=== PATIENT | female | born 1960 ===

== ENCOUNTER 2020-06-27 10:23 | Outpatient (REF) | payer MEDICAID, SELFPAY ==
--- NOTE | ~2020-06-27 | MM_ITS ---
EXAMINATION: MM SCREENING DIGITAL MAMMOGRAPHY, BILATERAL CLINICAL INFORMATION: Screening. Asymptomatic. The lifetime risk of breast cancer based on the Tyrer-Cuzick Model is 4%. COMPARISON: Mammography: 05/25/2018, 04/28/2017 (baseline). TECHNIQUE: Digital mammography is performed in craniocaudal and mediolateral oblique views along with computer-aided detection (CAD). Technically challenging exam, 2 technologists to perform. Exam tailored to patient capabilities. Additional right CC view is provided. FINDINGS: There are scattered areas of fibroglandular density (ACR BI-RADS breast composition Category b). There are no significant masses, abnormal calcifications, or other abnormalities. No developing density. No significant changes. MM/MM screening mammo BI IMPRESSION: No mammographic evidence of malignancy. ASSESSMENT: BI-RADS 1: Negative RECOMMENDATION: Routine annual mammography screening. This patient's information was entered into a reminder system with a target due date for their next mammogram.
== END 2020-06-27 10:24 | disposition home or self-care (01) ==
LOC: HO.MAMMO 10:23
PROVIDERS: PCP Hospitalist; Visit Provider Hospitalist
DX: Z12.31 Encounter for screening mammogram for malignant neoplasm of breast (principal)
CPT/HCPCS: 77063; 77067

== ENCOUNTER → 2021-01-06 09:10 | Outpatient (BNVA) | payer MEDICAID, SELFPAY | PROVIDERS: PCP Hospitalist ==

== ENCOUNTER → 2022-05-20 13:38 | Outpatient (BNVA) | payer MEDICAID, SELFPAY | PROVIDERS: PCP Hospitalist; Visit Provider Nurse Practitioner Family | DX: N32.81 Overactive bladder (principal) | CPT/HCPCS: 51798; 99212 ==

== ENCOUNTER 2022-06-24 09:47 | Outpatient (REF) | payer MEDICAID, SELFPAY ==
--- NOTE | ~2022-06-24 | US_ITS ---
EXAMINATION: US RETROPERITONEAL COMPLETE (RENAL) CLINICAL INFORMATION: Overactive bladder. COMPARISON: None available. TECHNIQUE: Real-time imaging of the kidneys and bladder. FINDINGS: RIGHT KIDNEY: 10.1 x 5.4 x 4.6 cm (SAG x AP x TRV). The kidney is normal in size, contour, and echogenicity. There is mild cortical thinning. No focal parenchymal lesions or hydronephrosis. There is an echogenic nonobstructive stone midpole measuring 0.3 x 0.3 x 0.2 cm. No additional echogenic stones seen. No caliectasis is noted. LEFT KIDNEY: 10.5 x 5.0 x 5.2 cm (SAG x AP x TRV). The kidney is normal in size, contour, and echogenicity. There is mild cortical thinning No calculi or focal parenchymal lesions. No hydronephrosis. BLADDER: Well distended and normal. Bilateral ureteral jets are demonstrated. Prevoid bladder volume is 253 mL. Postvoid bladder volume is 62.1 mL. US/US retroperitoneal comp IMPRESSION: 1. Small nonobstructive echogenic stone midpole right kidney. 2. There is no caliectasis or hydronephrosis. 3. There is mild bilateral cortical thinning. 4. Normal bilateral ureteral jets seen. Small postvoid residual bladder volume.
== END 2022-06-24 09:48 | disposition home or self-care (01) ==
LOC: HO.US 09:47
PROVIDERS: PCP Hospitalist; Visit Provider Nurse Practitioner Family
DX: N32.81 Overactive bladder (principal)
CPT/HCPCS: 76770

== ENCOUNTER → 2022-07-01 10:37 | Outpatient (BNVA) | payer MEDICAID, SELFPAY | PROVIDERS: PCP Hospitalist; Visit Provider Nurse Practitioner Family | DX: N32.81 Overactive bladder (principal); R81 Glycosuria; Z79.899 Other long term (current) drug therapy | CPT/HCPCS: 51798; 99212 ==

== ENCOUNTER 2022-12-30 11:33 | Outpatient (AMB) | payer MEDICAID, SELFPAY ==
--- NOTE | 2022-12-30 11:34 | MHC.OFFVIS ---
Intake Intake Visit Reasons: 6m/PVR Intake Note: Patient is present for follow up PVR/OAB Urology Medications: Gemtesa Blood Thinner: Aspirin PVR: 83ml's Physician Practice Manager Required: No Accompanied by: Unknown Allergies Erythromycin Allergy (Unknown, Uncoded 12/30/22 13:32) Unknown Medication List - Last Reconciled 12/30/22 by AGNES HuertasP- acetaminophen 650 mg PO Q4H PRN aspirin (Adult Low Dose Aspirin) 81 mg PO DAILY kkivgyn-rjhzuqgicfngq-renesomy 250-250-65 mg (Excedrin Migraine) 1 tab PO Q4-6H PRN atorvastatin (Lipitor) 20 mg PO DAILY benztropine 1 mg PO BID bisacodyl 5 mg PO BEDTIME lvnocrtvvx-lmqgizkonfsho-wyqx 50-325-40 mg 1 tab PO Q4H PRN calcium carbonate (Antacid (calcium carbonate)) 430 mg PO QID ergocalciferol (vitamin D2) (Vitamin D2) 1,250 mcg PO DAILY famotidine 40 mg PO BEDTIME gabapentin 300 mg PO DAILY hydroxyzine HCl 25 mg PO TID PRN lidocaine HCl 4% (Aspercreme (lidocaine HCl)) 1 appl topical TID PRN loperamide 2 mg PO Q6H PRN loratadine 10 mg PO DAILY risperidone (Risperdal) 0.5 mg PO BID vibegron (Gemtesa) 75 mg PO DAILY 30 days HPI HPI Comments History of Present Illness Details Anabela is a pleasant 62-year-old female patient of Dr. Ko and is accompanied by a staff member from the facility she resides at a [facility]. She has a past medical history of legally blind, nephrolithiasis, overactive bladder, hyperlipidemia, bipolar disorder, depression, tension headaches, paralytic mitosis of bilateral eyelids, strabismus, GERD, dysarthria, anarthria, chronic pain, and bilateral optic atrophy. She presents to the office today for follow-up of her overactive bladder. Discussion with the patient today she reports to be doing and feeling well. When asked patient reports compliance with Myrbetriq 50 mg daily. She reports that although she does not know the name of all her medications she does believe [facility] staff to be administering her Myrbetriq daily. She denies any bothersome urinary issues or concerns at this time. She reports to be happy with current voiding parameters on 50 mg of Myrbetriq daily. Previous workup has included a retroperitoneal ultrasound noting right kidney with no lesions or hydronephrosis. There is an echogenic nonobstructive stone in the mid pole measuring 2 mm. Left kidney with no stones, lesions, and or hydronephrosis. The bladder is well distended and normal. Bilateral ureteral jets are demonstrated. Pre void bladder volume is 253 mL. Postvoid bladder volume is 62.1 mL. In office urinalysis results reviewed with the patient today. PVR 83 mL. In review of the patient's appears she previously failed off of oxybutynin. Patient reports she is wheelchair-bound and requires assistance for toileting however reports staff at facility to be helping her. When asked she denies any UTI like symptoms. She denies urinary urgency, hematuria, dysuria, foul smelling urine, changes to urinary stream, flank pain, fever, and or chills. [facility] Medical History Overactive bladder Dysarthria Exotropia GERD (gastroesophageal reflux disease) Hyperlipidemia Legal blindness Major depressive disorder Bipolar 1 disorder Hemiplegia Social History Patient Tobacco Use Status: Never used Tobacco Review of Systems Const Reports as per HPI Eyes Reports as per HPI ENT Reports no additional complaints Card Reports as per HPI Resp Reports no additional complaints GI Reports as per HPI Reports as per HPI Musc Reports as per HPI Neuro Reports as per HPI Psych Reports as per HPI Endo Reports no additional complaints Billy/Lymph Reports no additional complaints Aller/Immun Reports no additional complaints Physical Exam Const General: cooperative, comfortable, no acute distress and well developed Orientation/consciousness: oriented to person Limitations: wheelchair HEENT Head: Yes normal to inspection Neck Neck: Yes normal visual inspection Chest Chest palpation & inspection: normal inspection of the chest Resp Effort & Inspection: normal respiratory effort Cardio Rate: regular rate GI Inspection: Yes normal to inspection General: Yes no CVA tenderness Back/Spine/Pelvis Back: no CVA tenderness Neuro General: oriented to person Extrem General: Yes normal to inspection Psych Appearance: well kempt Attitude: cooperative Insight: Fair insight present (Psych) Judgement: Fair judgement present (Psych) Office Procedures Post Void Residual Post Residual Void Post Void Residual (PVR): 83 [id number]-Fufr Void Residual by ultrasound Results AMB Urinalysis, Automated UA Leukoctes 0 Javier/uL Last Edit by Jeffrey Armenta on 12/30/22 12:10 UA Nitrite Negative Last Edit by InsideAxis™vanessa Armenta on 12/30/22 12:10 UA Urobilinogen 0.2 mg/dL Last Edit by Technisysdanielle Armenta on 12/30/22 12:10 UA Protein 0 mg/dL Last Edit by Technisysdanielle [email or web address] on 12/30/22 12:10 UA pH 6.0 Last Edit by Convertroshahrzad on 12/30/22 12:10 UA Blood 0 Joe/uL Last Edit by Convertroshahrzad on 12/30/22 12:10 UA Specific [place] 1.020 Last Edit by Technisysdanielle [email or web address] on 12/30/22 12:10 UA Ketone Negative Last Edit by Convertroshahrzad on 12/30/22 12:10 UA Bilirubin 0 mg/dL Last Edit by Convertroshahrzad on 12/30/22 12:10 UA Glucose 0 mg/dL Last Edit by [email or web address] on 12/30/22 12:10 Results Reviewed Results Reviewed: Laboratory Last Values Urine pH (Auto) 6.0 12/30/22 12:01 Specific [place] (Auto) 1.020 12/30/22 12:01 Urine Protein (Auto) 0 mg/dL 12/30/22 12:01 Glucose (UA)(Auto) 0 mg/dL 12/30/22 12:01 Urine Ketones (Auto) Negative 12/30/22 12:01 Urine Blood (Auto) 0 Joe/uL 12/30/22 12:01 Urine Nitrite (Auto) Negative 12/30/22 12:01 Urine Bilirubin (Auto) 0 mg/dL 12/30/22 12:01 Urine Urobilinogen (Auto) 0.2 mg/dL 12/30/22 12:01 Leukocyte Esterase (Auto) 0 Javier/uL 12/30/22 12:01 Assessment & Plan Assessment & Plan (1) Overactive bladder: Code(s): N32.81 - Overactive bladder (2) Nephrolithiasis: Code(s): N20.0 - Calculus of kidney Plan In office urinalysis results reviewed with the patient today and [facility] worker today. PVR 83 mL. Continue Myrbetriq 50 mg daily as discussed and prescribed Discussed, educated, encouraged on the importance of drinking plenty of fluid daily. Continue with scheduled/timed voiding to decreased episodes of urinary incontinence if not near a bathroom. Patient reports be happy with current voiding parameters. Patient denies any bothersome urinary issues or concerns at this time. Follow-up in 6 months with PVR; or sooner with any issues, concerns, and or questions. Orders: Orders AMB Post Void Residual by ultrasound Today N32.81 - Overactive bladder AMB Urinalysis Automated Today Z13.9 - Encounter for screening, unspecified Patient Instructions: The patient had an opportunity to ask questions regarding the treatment plan. All questions were answered. Physical exam, labs, and imaging were discussed and reviewed in detail. As well as risks, benefits, and discussion of treatment choices. No major barriers to understanding were identified. The patient expressed understanding and agreement with the above treatment plan. The patient was made aware they should contact our office by phone for worsening of their current condition, the appearance of new symptoms, or with any questions or concerns. Compliance is encouraged with any medications and follow up testing that is ordered. It is a privilege to be allowed the opportunity to participate in? your urological care.? Again, if you have any questions or concerns If you have any questions or concerns please do not hesitate to contact me. The office is [phone]. This note is constructed using voice recognition software. While every effort has been made to ensure accuracy content specialist errors may have been included. Yours sincerely, JAMES Huertas Coding Level of Care Code Est Pt Level 3 (05233) Diagnoses Overactive bladder N32.81 Nephrolithiasis N20.0 CPT Codes Post Residual Void - PVR CPT Code: 16647-Hjci Void Residual by ultrasound ([id number])
== END 2022-12-30 12:08 | disposition home or self-care (01) ==
PROVIDERS: Visit Provider Nurse Practitioner Family
DX: N32.81 Overactive bladder (principal); N20.0 Calculus of kidney; Z13.9 Encounter for screening, unspecified
CPT/HCPCS: 99213

== ENCOUNTER → 2022-12-30 11:33 | Outpatient (BNVA) | payer MEDICAID, SELFPAY | PROVIDERS: Visit Provider Nurse Practitioner Family | DX: N32.81 Overactive bladder (principal); N20.0 Calculus of kidney; Z79.899 Other long term (current) drug therapy | CPT/HCPCS: 51798; 81003; 99212 ==

== ENCOUNTER 2023-06-30 10:38 | Outpatient (AMB) | payer MEDICAID, SELFPAY ==
--- NOTE | 2023-06-30 10:39 | MHC.OFFVIS ---
Intake Visit Reasons: 6m/US/PVR Intake Note: Patient is present for follow up PVR/OAB Urology Medications: Myrbetriq Blood Thinner: Aspirin PVR: 0ml's Ux Architect Required: No Accompanied by: PARK SUPERINTENDENT Allergies Erythromycin Allergy (Unknown, Uncoded 06/30/23 20:39) Unknown Medication List - Last Reconciled 06/30/23 by BRENT Huertas-KAROLYN acetaminophen 650 mg PO Q4H PRN aspirin (Adult Low Dose Aspirin) 81 mg PO DAILY oqkwksq-ptkjijccbdsfu-uvpzvepd 250-250-65 mg (Excedrin Migraine) 1 tab PO Q4-6H PRN atorvastatin (Lipitor) 20 mg PO DAILY benztropine 1 mg PO BID bisacodyl 5 mg PO BEDTIME matmaapyea-hstqzvkqyfuhv-pcyb 50-325-40 mg 1 tab PO Q4H PRN calcium carbonate (Antacid (calcium carbonate)) 430 mg PO QID ergocalciferol (vitamin D2) (Vitamin D2) 1,250 mcg PO DAILY famotidine 40 mg PO BEDTIME gabapentin 300 mg PO DAILY hydroxyzine HCl 25 mg PO TID PRN lidocaine HCl 4% (Aspercreme (lidocaine HCl)) 1 appl topical TID PRN loperamide 2 mg PO Q6H PRN loratadine 10 mg PO DAILY mirabegron ER (Myrbetriq) 50 mg PO DAILY mirtazapine 7.5 mg PO DAILY risperidone (Risperdal) 0.5 mg PO BID HPI Comments Details: Anabela is a pleasant 63-year-old female patient of Dr. Ko and is accompanied by a staff member Abbie from the facility she resides at a [facility]. She has a past medical history of legally blind, nephrolithiasis, overactive bladder, hyperlipidemia, bipolar disorder, depression, tension headaches, paralytic mitosis of bilateral eyelids, strabismus, GERD, dysarthria, anarthria, chronic pain, and bilateral optic atrophy. She presents to the office today for follow-up of her overactive bladder. In discussion with the patient today she reports to be doing and feeling well. When asked patient reports compliance with Myrbetriq 50 mg daily. She denies any bothersome urinary issues or concerns at this time. She reports to be happy with current voiding parameters on 50 mg of Myrbetriq daily. Previous workup has included a retroperitoneal ultrasound noting right kidney with no lesions or hydronephrosis. There is an echogenic nonobstructive stone in the mid pole measuring 2 mm. Left kidney with no stones, lesions, and or hydronephrosis. The bladder is well distended and normal. Bilateral ureteral jets are demonstrated. Pre void bladder volume is 253 mL. Postvoid bladder volume is 62.1 mL. Unable to obtain urine for urinalysis however PVR 0 mLs. Patient reports she is wheelchair-bound and requires assistance for toileting however reports staff at facility to be helping her. When asked she denies any UTI like symptoms. She does report to have infrequent episodes of incontinence at times however relates this to not being able to make it to the bathroom in time given decreased mobility. She denies urinary urgency, hematuria, dysuria, foul smelling urine, changes to urinary stream, flank pain, fever, and or chills. [facility] Medical History Overactive bladder Dysarthria Exotropia GERD (gastroesophageal reflux disease) Hyperlipidemia Legal blindness Major depressive disorder Bipolar 1 disorder Hemiplegia Social History Patient Tobacco Use Status: Never used Tobacco Review of Systems Const Reports as per HPI Eyes Reports as per HPI ENT Reports no additional complaints Card Reports as per HPI Resp Reports no additional complaints GI Reports as per HPI Reports as per HPI Musc Reports as per HPI Neuro Reports as per HPI Psych Reports as per HPI Endo Reports no additional complaints Billy/Lymph Reports no additional complaints Aller/Immun Reports no additional complaints Physical Exam Const General: cooperative, comfortable, no acute distress and well developed Orientation/consciousness: oriented to person Limitations: wheelchair HEENT Head: Yes normal to inspection Neck Neck: Yes normal visual inspection Chest Chest palpation & inspection: normal inspection of the chest Resp Effort & Inspection: normal respiratory effort Cardio Rate: regular rate GI Inspection: Yes normal to inspection General: Yes no CVA tenderness Back/Spine/Pelvis Back: no CVA tenderness Neuro General: oriented to person Extrem General: Yes normal to inspection Psych Appearance: well kempt Attitude: cooperative Insight: Fair insight present (Psych) Judgement: Fair judgement present (Psych) Office Procedures Post Void Residual Post Residual Void Post Void Residual (PVR): 0 69019-Vkyr Void Residual by ultrasound Assessment & Plan Assessment & Plan (1) Overactive bladder: Code(s): N32.81 - Overactive bladder Category: Medical (2) Nephrolithiasis: Code(s): N20.0 - Calculus of kidney Category: Medical Plan Unable to obtain urine for urinalysis however PVR 0 mL. Continue Myrbetriq 50 mg daily as discussed and prescribed Discussed, educated, encouraged on the importance of drinking plenty of fluid daily. Continue with scheduled/timed voiding to decreased episodes of urinary incontinence if not near a bathroom. Patient reports be happy with current voiding parameters. Patient denies any bothersome urinary issues or concerns at this time. Follow-up in 6 months with PVR; or sooner with any issues, concerns, and or questions. Orders: Orders AMB Urinalysis Automated Today Z13.9 - Encounter for screening, unspecified AMB Post Void Residual by ultrasound Today N32.81 - Overactive bladder Patient Instructions: The patient had an opportunity to ask questions regarding the treatment plan. All questions were answered. Physical exam, labs, and imaging were discussed and reviewed in detail. As well as risks, benefits, and discussion of treatment choices. No major barriers to understanding were identified. The patient expressed understanding and agreement with the above treatment plan. The patient was made aware they should contact our office by phone for worsening of their current condition, the appearance of new symptoms, or with any questions or concerns. Compliance is encouraged with any medications and follow up testing that is ordered. It is a privilege to be allowed the opportunity to participate in? your urological care.? Again, if you have any questions or concerns If you have any questions or concerns please do not hesitate to contact me. The office is [phone]. This note is constructed using voice recognition software. While every effort has been made to ensure accuracy care transition manager errors may have been included. Yours sincerely, JAMES Huertas Coding Level of Care Code Est Pt Level 3 (78069) Diagnoses Overactive bladder N32.81 Nephrolithiasis N20.0 CPT Codes Post Residual Void - PVR CPT Code: 62202-Whoq Void Residual by ultrasound ([id number])
== END 2023-06-30 11:16 | disposition home or self-care (01) ==
PROVIDERS: PCP Hospitalist; Visit Provider Nurse Practitioner Family
DX: N32.81 Overactive bladder (principal); N20.0 Calculus of kidney
CPT/HCPCS: 99213

== ENCOUNTER → 2023-06-30 10:38 | Outpatient (BNVA) | payer MEDICAID, SELFPAY | PROVIDERS: PCP Hospitalist; Visit Provider Nurse Practitioner Family | DX: N32.81 Overactive bladder (principal); Z87.442 Personal history of urinary calculi; Z79.899 Other long term (current) drug therapy | CPT/HCPCS: 51798; 99212 ==

== ENCOUNTER 2024-01-03 10:49 | Outpatient (AMB) | payer MEDICAID, SELFPAY ==
--- NOTE | 2024-01-03 10:52 | A.OFFVIS_ITS ---
Intake Visit Reasons: 6m/PVR Intake Note: Patient is present for follow up PVR/OAB Urology Medications: Myrbetriq Blood Thinner: Aspirin PVR: 0ml's Gluer Required: No Accompanied by: TREE CHIPPER Allergies Erythromycin Allergy (Unknown, Uncoded 01/03/24 11:23) Unknown Medication List - Last Reconciled 01/03/24 by JAMES Huertas acetaminophen 650 mg PO Q4H PRN aspirin (Adult Low Dose Aspirin) 81 mg PO DAILY ybucpdv-crmtphcmrtveg-kxthljhb 250-250-65 mg (Excedrin Migraine) 1 tab PO Q4-6H PRN atorvastatin (Lipitor) 20 mg PO DAILY benztropine 1 mg PO BID bisacodyl 5 mg PO BEDTIME urepumouur-pjbdknurfnhwr-wgvp 50-325-40 mg 1 tab PO Q4H PRN calcium carbonate (Antacid (calcium carbonate)) 430 mg PO QID ergocalciferol (vitamin D2) (Vitamin D2) 1,250 mcg PO DAILY famotidine 40 mg PO BEDTIME gabapentin 300 mg PO DAILY hydroxyzine HCl 25 mg PO TID PRN lidocaine HCl 4% (Aspercreme (lidocaine HCl)) 1 appl topical TID PRN loperamide 2 mg PO Q6H PRN loratadine 10 mg PO DAILY mirabegron ER (Myrbetriq) 50 mg PO DAILY mirtazapine 7.5 mg PO DAILY risperidone (Risperdal) 0.5 mg PO BID HPI Comments Details: Anabela is a pleasant 63-year-old female patient of Dr. Ko and is accompanied by a staff member from the facility she resides at a [facility]. She has a past medical history of legally blind, nephrolithiasis, overactive bladder, hyperlipidemia, bipolar disorder, depression, tension headaches, paralytic mitosis of bilateral eyelids, strabismus, GERD, dysarthria, anarthria, chronic pain, and bilateral optic atrophy. She presents to the office today for follow-up of her overactive bladder. In discussion with the patient today she reports to be doing and feeling well. When asked patient reports compliance with Myrbetriq 50 mg daily. She denies any bothersome urinary issues or concerns at this time. She reports to be happy with current voiding parameters on 50 mg of Myrbetriq daily. Previous workup has included a retroperitoneal ultrasound 06/21 noting right kidney with no lesions or hydronephrosis. There is an echogenic nonobstructive stone in the mid pole measuring 2 mm. Left kidney with no stones, lesions, and or hydronephrosis. The bladder is well distended and normal. Bilateral ureteral jets are demonstrated. Pre void bladder volume is 253 mL. Postvoid bladder volume is 62.1 mL. Unable to obtain urine for urinalysis however PVR 0 mLs. Patient reports she is wheelchair-bound and requires assistance for toileting however reports staff at facility to be helping her. When asked she denies any UTI like symptoms. She does report to have infrequent episodes of incontinence at times however relates this to not being able to make it to the bathroom in time given decreased mobility. She denies urinary urgency, hematuria, dysuria, foul smelling urine, changes to urinary stream, flank pain, fever, and or chills. [facility] Medical History Overactive bladder Dysarthria Exotropia GERD (gastroesophageal reflux disease) Hyperlipidemia Legal blindness Major depressive disorder Bipolar 1 disorder Hemiplegia Social History Patient Tobacco Use Status: Never used Tobacco Review of Systems Const Reports as per HPI Eyes Reports as per HPI ENT Reports no additional complaints Card Reports as per HPI Resp Reports no additional complaints GI Reports as per HPI Reports as per HPI Musc Reports as per HPI Neuro Reports as per HPI Psych Reports as per HPI Endo Reports no additional complaints Billy/Lymph Reports no additional complaints Aller/Immun Reports no additional complaints Physical Exam Const General: cooperative, comfortable, no acute distress and well developed Orientation/consciousness: oriented to person Limitations: wheelchair HEENT Head: Yes normal to inspection Neck Neck: Yes normal visual inspection Chest Chest palpation & inspection: normal inspection of the chest Resp Effort & Inspection: normal respiratory effort Cardio Rate: regular rate GI Inspection: Yes normal to inspection General: Yes no CVA tenderness Back/Spine/Pelvis Back: no CVA tenderness Neuro General: oriented to person Extrem General: Yes normal to inspection Psych Appearance: well kempt Attitude: cooperative Insight: Fair insight present (Psych) Judgement: Fair judgement present (Psych) Assessment & Plan Assessment & Plan (1) Overactive bladder: Code(s): N32.81 - Overactive bladder Category: Medical (2) Nephrolithiasis: Code(s): N20.0 - Calculus of kidney Category: Medical Plan Unable to obtain urine for urinalysis however PVR 0 mL. Continue Myrbetriq 50 mg daily as discussed and prescribed Discussed, educated, encouraged on the importance of drinking plenty of fluid daily. Continue with scheduled/timed voiding to decreased episodes of urinary incontinence if not near a bathroom. Patient reports be happy with current voiding parameters. Patient denies any bothersome urinary issues or concerns at this time. Follow-up in 1 year with PVR; or sooner with any issues, concerns, and or questions. Patient Instructions: The patient had an opportunity to ask questions regarding the treatment plan. All questions were answered. Physical exam, labs, and imaging were discussed and reviewed in detail. As well as risks, benefits, and discussion of treatment choices. No major barriers to understanding were identified. The patient expressed understanding and agreement with the above treatment plan. The patient was made aware they should contact our office by phone for worsening of their current condition, the appearance of new symptoms, or with any questions or concerns. Compliance is encouraged with any medications and follow up testing that is ordered. It is a privilege to be allowed the opportunity to participate in? your urological care.? Again, if you have any questions or concerns If you have any questions or concerns please do not hesitate to contact me. The office is [phone]. This note is constructed using voice recognition software. While every effort has been made to ensure accuracy childcare teacher errors may have been included. Yours sincerely, JAMES Huertas Coding Level of Care Code Est Pt Level 3 (91379) Complex EM visit Add On G2211 Diagnoses Overactive bladder N32.81 Nephrolithiasis N20.0
== END 2024-01-03 11:16 | disposition home or self-care (01) ==
LOC: HO.HUSH 10:50
PROVIDERS: PCP Hospitalist; Visit Provider Nurse Practitioner Family
DX: N32.81 Overactive bladder (principal); N20.0 Calculus of kidney
CPT/HCPCS: 99213; G2211

== ENCOUNTER → 2024-01-03 10:49 | Outpatient (BNVA) | payer MEDICAID, SELFPAY | PROVIDERS: PCP Hospitalist; Visit Provider Nurse Practitioner Family | DX: N32.81 Overactive bladder (principal); N20.0 Calculus of kidney | CPT/HCPCS: 99212 ==

== ENCOUNTER 2024-01-05 09:21 | Outpatient (AMB) | payer MEDICAID, SELFPAY ==
--- NOTE | 2024-01-05 09:25 | MHC.OFFVIS ---
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 She is doing well with no concerns. Admits to having decreased appetite. Activity limited to a wheelchair access. Last mammogram; 2020. Colonoscopy records unavailable. Medication list not supplied today. Denies any family history of breast, ovarian or colon cancer. [facility] Medical History (Updated 01/05/24 @ 09:40 by Anabela Weaver CNM) Presbyopia Overactive bladder Dysarthria Exotropia GERD (gastroesophageal reflux disease) Hyperlipidemia Legal blindness Major depressive disorder Bipolar 1 disorder Hemiplegia Family History (Updated 01/05/24 @ 09:33 by Deborah Hadley MA) Father Colon cancer Social History Patient Tobacco Use Status: Never used Tobacco Female Reproductive History Menstrual Total pregnancies: 4 Full term: 4 Number of Living Children: 3 (2nd child put up for adoption) Date of Mammogram: 06/27/20 (bi-rad 1) Review of Systems Const All systems reviewed & are unremarkable except as noted in HPI and below Reports as per HPI Eyes Reports no additional complaints ENT Reports no additional complaints Card Reports no additional complaints Resp Reports no additional complaints GI Reports as per HPI and Reports no additional complaints Reports as per HPI Musc Reports no additional complaints Skin/Breast Reports as per HPI Neuro Reports no additional complaints Psych Reports no additional complaints Endo Reports no additional complaints Billy/Lymph Reports no additional complaints Aller/Immun Reports no additional complaints Physical Exam Vital Signs: Last Vital Signs BP 104/60 01/05/24 09:29 Const General: cooperative, healthy appearing, no acute distress, well developed and alert Orientation/consciousness: patient oriented x3 HEENT Head: Yes normal to inspection Eyes General: appearance normal, both eyes and all related structures Neck Neck: Yes normal visual inspection Thyroid: Thyroid normal Chest Chest palpation & inspection: normal inspection of the chest and other (no puckering, dimpling, peau de orange, retraction, discharge, masses) Breast/axilla inspection: normal inspection of the breasts Breast/axilla palpation: normal palpation of the breasts Resp Effort & Inspection: normal respiratory effort GI Inspection: Yes normal to inspection Palpation (GI): Soft to palpation Rectal Exam - Female: deferred General: Yes bladder normal to palpation External Female Exam: normal external appearance and normal appearance of the urethra Speculum Exam - Vagina: normal palpation and vagina atrophic Speculum Exam - Cervix: normal appearance of the cervix and normal palpation Bimanual exam- vagina & uterus: normal bimanual exam, normal palpation, uterine size normal, bladder normal to palpation, normal palpation and non-tender Bimanual Exam- Adnexa, other: no masses Skin General skin exam: no rashes or lesions noted Rashes: no rashes Neuro General: patient oriented x3 Cognition (Neuro): normal cognition Extrem General: Yes normal to inspection Psych Attitude: cooperative Thought process: Normal thought process present Assessment & Plan Assessment & Plan (1) Encounter for well woman exam with routine gynecological exam: Code(s): Z01.419 - Encounter for gynecological examination (general) (routine) without abnormal findings Category: Medical Plan Discussed: Current recommendations for pap smears per ASCCP guidelines. Pap obtained. Request [facility] to send medication list for update. Breast awareness, yearly mammogram. Maintain a healthy diet. Contact the office with any postmenopausal bleeding. Patient verbalizes understanding and agrees to the plan of care. She was given opportunity to ask questions and all questions were answered to the best of my ability. RTO in 2 year for annual marketing information analyst exam. This note is constructed using voice recognition software. While every effort has been made to ensure accuracy, maintenance leader errors may have been included. Coding Level of Care Code Est Pt Prev Care 40-64y(53661) Diagnoses Encounter for well woman exam with routine gynecological exam Z01.419
[2024-01-05 09:29] VITALS: BP 104/60
== END 2024-01-05 09:59 | disposition home or self-care (01) ==
LOC: HO.HWS 09:21
PROVIDERS: PCP Hospitalist; Visit Provider Advanced Practice Midwife
DX: Z01.419 Encounter for gynecological examination (general) (routine) without abnormal findings (principal)
CPT/HCPCS: 99396

== ENCOUNTER 2024-01-05 09:21 | Outpatient (REF) | payer MEDICAID, SELFPAY ==
[2024-01-06 10:31] LABS: HPV 16,18/45 See PAP report
== END 2024-01-05 09:22 | disposition home or self-care (01) ==
LOC: HO.LNP 09:21
PROVIDERS: PCP Hospitalist; Visit Provider Advanced Practice Midwife
DX: Z01.419 Encounter for gynecological examination (general) (routine) without abnormal findings (principal)
CPT/HCPCS: 87624; 88175; 99396

== ENCOUNTER 2024-01-12 14:05 | Emergency (ER) | payer MEDICAID, SELFPAY ==
--- NOTE | ~2024-01-12 | CT_ITS ---
EXAMINATION: CT HEAD WITHOUT CONTRAST CLINICAL INFORMATION: Altered mental status COMPARISON: 08/24/2017 TECHNIQUE: Contiguous axial imaging was performed from the skull base to vertex without intravenous administration of contrast. This CT examination was performed using dose optimization techniques as appropriate, variously including the following: *Automated exposure control *Adjustment of mA and/or kV according to patient size (this includes techniques or standardized protocols for targeted exams where dose is matched to indication/reason for exam; i.e. 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 A few foci of calcification in the right frontal lobe adjacent to areas of gliosis, near the right lateral ventricle is stable. There is prominence to the sulci and ventricles with areas of deep white matter gliosis but overall, the appearance is similar to that seen on 08/24/2017. No evidence for hemorrhage or mass or extra-axial collection. Calvarium intact. CT/CT head/brain wo IV con IMPRESSION: Extensive but stable chronic findings left cerebellum. No acute intracranial pathology. Electronically signed by: Clive Heredia MD 01/12/2024 05:01 PM SELWYN
[2024-01-12 14:15] VITALS: BP 126/82; PULSE 80; O2SAT 97
[2024-01-12 14:21] VITALS: BP 110/70; PULSE 63; RESP 16; TEMP 36.7; O2SAT 94
--- NOTE | 2024-01-12 14:25 | ECG_ITS ---
Test Reason : ALTERED MENTAL Blood Pressure : / mmHG Vent. Rate : 062 BPM Atrial Rate : 062 BPM P-R Int : 166 ms QRS Dur : 074 ms QT Int : 434 ms P-R-T Axes : 035 018 015 degrees QTc Int : 440 ms Normal sinus rhythm Low voltage QRS Borderline ECG No previous ECGs available Referred By: Bibi Gupta Electronically Signed By:Luisito Stephens
[2024-01-12 14:27] VITALS: BP 110/70; PULSE 60; RESP 18; TEMP 36.7; O2SAT 96; BMI 23.6
--- NOTE | 2024-01-12 14:45 | ED_ITS ---
HPI - Neuro Symptoms/Deficit General Chief Complaint: Neuro Symptoms/Deficit Stated Complaint: DROOLING, RIGHT SIDE FACIAL DROOP (RESVED) lnw 12 Time Seen by Provider: 01/12/24 14:07 Source: patient Mode of arrival: EMS History of Present Illness ED Provider: Alonso SUMMERS Narrative: 63-year-old female [facility] for noting that she was drooling and stating that patient had a right facial droop, patient is at the facility for TBI. Patient reports that she was watching TV and fell asleep and when they woke her up she was somewhat disoriented, she has no complaints at this time denies any numbness or tingling to any of her extremities denies any difficulty and moving any of her extremities. She denies any recent cough, fever, chills. Related Data Home Medications ?Medication ?Instructions ?Recorded ?Confirmed aspirin 81 mg tablet,delayed 81 mg PO DAILY 01/06/21 01/03/24 release (Adult Low Dose Aspirin) atorvastatin 20 mg tablet (Lipitor) 20 mg PO DAILY 01/06/21 01/03/24 bisacodyl 5 mg tablet 5 mg PO BEDTIME 01/06/21 01/03/24 gabapentin 300 mg capsule 300 mg PO DAILY 01/06/21 01/03/24 hydroxyzine HCl 25 mg tablet 25 mg PO TID PRN 01/06/21 01/03/24 loperamide 2 mg capsule 2 mg PO Q6H PRN 01/06/21 01/03/24 loratadine 10 mg tablet 10 mg PO DAILY 01/06/21 01/03/24 acetaminophen 325 mg tablet 650 mg PO Q4H PRN 07/01/22 01/03/24 iyfvzmd-loxlphxrnvlhv-xmjdrtuy 250 1 tab PO Q4-6H PRN 07/01/22 01/03/24 mg-250 mg-65 mg tablet (Excedrin Migraine) benztropine 1 mg tablet 1 mg PO BID 07/01/22 01/03/24 rtznbgttzq-kjmzqwaorepwx-tkyqkljp 1 tab PO Q4H PRN 07/01/22 01/03/24 50 mg-325 mg-40 mg tablet calcium carbonate (Antacid 430 mg PO QID 07/01/22 01/03/24 (calcium carbonate)) ergocalciferol (vitamin D2) 1,250 1,250 mcg PO DAILY 07/01/22 01/03/24 mcg (50,000 unit) capsule (Vitamin D2) famotidine 40 mg tablet 40 mg PO BEDTIME 07/01/22 01/03/24 lidocaine HCl 4 % topical cream 1 appl topical TID PRN 07/01/22 01/03/24 (Aspercreme (lidocaine HCl)) risperidone 0.5 mg tablet 0.5 mg PO BID 07/01/22 01/03/24 (Risperdal) mirabegron 50 mg tablet,extended 50 mg PO DAILY 06/30/23 01/03/24 release 24 hr (Myrbetriq) mirtazapine 7.5 mg tablet 7.5 mg PO DAILY 06/30/23 01/03/24 Allergies Allergy/AdvReac Type Severity Reaction Status Date / Time Erythromycin Allergy Unknown Unknown Uncoded 01/12/24 14:29 Review of Systems 2 Review of Systems: Pertinent positives and negatives as stated in HPI [facility] Past Medical History Medical History Presbyopia Overactive bladder Dysarthria Exotropia GERD (gastroesophageal reflux disease) Hyperlipidemia Legal blindness Major depressive disorder Bipolar 1 disorder Hemiplegia Family History Family History Father Colon cancer Social History Social History Patient Tobacco Use Status: Never used Tobacco Smoked in Last 30 Days: No Use of substances other than those prescribed or required for medical reasons: No Advance Directives: No Advance Directives Information Provided: No Do you have a plan to hurt others: No Plan Physical Exam 2 Vital Signs: Vital Signs: Last Vital Signs Temp 98.0 F 01/12/24 14:27 Pulse 60 01/12/24 14:27 Resp 18 01/12/24 14:27 BP 110/70 01/12/24 14:27 Pulse Ox 96 01/12/24 14:27 O2 Del Method Room Air 01/12/24 14:27 BMI result Body Mass Index 23.6 VITAL SIGNS: Reviewed. GENERAL: Well developed, well nourished, in no acute distress. HEAD: Normocephalic/atraumatic EYES: PERRLA, EOMI EARS: Ext canals without abnormality NOSE: Nares patent bilateral OROPHARYNX: no oral lesions noted, posterior pharynx clear, dry mucosa NECK: Supple, no adenopathy LUNGS: Normal breath sounds. No adventitious sounds or accessory muscle use. CARDIOVASCULAR: Regular rate and rhythm without noted murmurs ABDOMEN: Soft, non-tender, non-distended with bowel sounds. MUSCULOSKELETAL: No tenderness, deformities, or effusions noted on gross inspection. EXTREMITIES: No cyanosis, clubbing or edema. SKIN: Inspection of the skin reveals no rashes NEUROLOGIC: Alert and oriented x 3. Strength and sensation to light touch were grossly intact x 4, no facial asymmetry, no pronator drift, cranial nerves 2-12 are grossly intact. Medical Decision Making Medical Decision Making MDM Narrative: 63-year-old female with history and clinical presentation, DD DX: Feel that patient was awakened abruptly, the drooling was likely associated with sleeping, patient denies any complaints at this time, I do not appreciate any focal deficits even though NIH is being score is 1 that simply because patient was drowsy but as mentioned in the NIH assessment easily arousable and communicative without slurred speech. Will obtain baseline lab work to assess for any evidence of underlying infection or electrolyte derangements, will obtain CT of the head but do not suspect any neurologic issues. EKG@1504: Normal sinus rhythm, HR-62, no STEMI, RI/QRS/QTC is within normal limits. 1514: I reviewed and interpreted all investigations and there is no evidence of acute infection, anemia, or thrombocytopenia. There is no demonstrate NEPTALI/electrolyte or liver enzyme derangements. Urinalysis is negative for UTI or hematuria. Signed out to 1600 provider, Natanael. Follow up CT scan, paperwork is completed. Differential Diagnosis Differential Diagnoses: The differential diagnosis associated with the presentation includes See above Admission/Observation Consideration of admission/observation: Escalation of care including admission/observation considered Patient does not meet inpatient level of care Lab Data MDM Lab Attestation statement: I reviewed the patient's lab results. See discussion above 01/12/24 14:46 01/12/24 14:46 Labs: Lab Results 01/12/24 Range/Units 14:46 WBC 5.0 (4.8-10.8) X10*3/uL RBC 4.57 (4.20-5.50) X10*6/uL Hgb 13.8 (12.0-16.0) g/dl Hct 39.9 (37.0-47.0) % MCV 87.3 (80.0-98.0) fL MCH 30.2 (27.0-33.0) pg MCHC 34.6 (31.0-35.0) g/dl RDW 11.9 (11.0-16.0) % Plt Count 206 (160-400) X10*3/uL MPV 9.9 (9.4-12.3) fL Immature Gran % (Auto) 0.2 (0.0-0.4) % Neut % (Auto) 44.6 L (45-73) % Lymph % (Auto) 43.0 H (20-40) % Kimble % (Auto) 8.8 (2-11) % Eos % (Auto) 2.6 (0-4) % Baso % (Auto) 0.8 (0-2) % Lymph # (Auto) 2.2 (1.2-4.9) X10*3/uL Kimble # (Auto) 0.4 (0.1-1.2) X10*3/uL Eos # (Auto) 0.1 (0.0-0.4) X10*3/uL Baso # (Auto) 0.0 (0.0-0.2) X10*3/uL Abs Immat Gran (auto) 0.01 (0.00-0.03) X10*3/uL Absolute Neuts (auto) 2.2 (2.0-8.3) x10*3/uL Absolute Nucleated RBC 0.000 (0.0-0.012) X10*3/uL Nucleated RBC % (auto) 0.0 (0.0-0.2) /100WBC Sodium 141 (135-145) mmol/L Potassium 3.6 (3.3-5.1) mmol/L Chloride 107 (96-108) mmol/L Carbon Dioxide 27 (22-29) mmol/L Anion Gap 11 L (12-20) BUN 12 (9-16) mg/dL Creatinine 0.80 (0.5-1.4) mg/dL Estim Creat Clear Calc 76.2 Estimated GFR > 60 Random Glucose 118 H (60-115) mg/dL Calcium 9.6 (8.4-10.2) mg/dL Total Bilirubin 0.3 (0.0-1.0) mg/dL AST 19 (5-31) U/L ALT 10 (0-31) U/L Alkaline Phosphatase 65 (39-117) U/L Total Protein 7.2 (6.5-8.0) g/dL Albumin 3.7 (3.5-5.0) g/dL Urine Color Yellow Urine Appearance Clear Urine pH 6.0 (5.0-9.0) Ur Specific [place] 1.015 (1.005-1.025) Urine Protein Negative (Neg-Trace) mg/dL Urine Glucose (UA) Negative (Negative) mg/dL Urine Ketones Negative (Negative) mg/dL Urine Blood Negative (Negative) Urine Nitrite Negative (Negative) Ur Leukocyte Esterase Negative (Negative) Independent Interpretation I performed an independent interpretation of an: EKG Interpretation: See discussion above NIH Stroke Scale Internal: Initial- Upon Arrival Level of Consciousness: Not Alert; but arousable by minor stimulation Level of Consciousness Questions: Answers both questions correctly Level of Consciousness Commands: Performs both tasks correctly Best Gaze: Normal Visual: No visual loss Facial Palsy: Normal Motor Arm (Right): No drift Motor Arm (Left): No drift Motor Leg (Right): No drift Motor Leg (Left): No drift Limb Ataxia: Absent Sensory: Normal Best Language: No aphasia Dysarthia: Normal Extinction and Inattention: No abnormality Score: 1 Discharge Plan Discharge Clinical Impression: Activity, sleeping, Hx of traumatic brain injury Patient Disposition: Still a Patient Additional Instructions: Resume all home medications as prescribed. Workup today was negative for any evidence to suggest infection, neurologic abnormality. Prescriptions: No Action loratadine 10 mg tablet 10 mg PO DAILY loperamide 2 mg capsule 2 mg PO Q6H PRN atorvastatin [Lipitor] 20 mg tablet 20 mg PO DAILY hydroxyzine HCl 25 mg tablet 25 mg PO TID PRN gabapentin 300 mg capsule 300 mg PO DAILY bisacodyl 5 mg tablet 5 mg PO BEDTIME aspirin [Adult Low Dose Aspirin] 81 mg tablet,delayed release (DR/EC) 81 mg PO DAILY acetaminophen 325 mg tablet 650 mg PO Q4H PRN lidocaine HCl [Aspercreme (lidocaine HCl)] 4 % cream 1 appl topical TID PRN benztropine 1 mg tablet 1 mg PO BID sgafzeiint-eyepsyjxnehee-fgks 50-325-40 mg tablet 1 tab PO Q4H PRN Antacid (calcium carbonate) 215 mg calcium (500 mg) tablet,chewable 430 mg PO QID Excedrin Migraine 250-250-65 mg tablet 1 tab PO Q4-6H PRN famotidine 40 mg tablet 40 mg PO BEDTIME risperidone [Risperdal] 0.5 mg tablet 0.5 mg PO BID ergocalciferol (vitamin D2) [Vitamin D2] 1,250 mcg (50,000 unit) capsule 1,250 mcg PO DAILY mirtazapine 7.5 mg tablet 7.5 mg PO DAILY Myrbetriq 50 mg tablet extended release 24 hr 50 mg PO DAILY Print Language: Vincentian
[2024-01-12 14:52] LABS: MANUAL DIFF FLAG NO
[2024-01-12 14:54] LABS: Basophils Percent Auto 0.8 % (0-2); Eosinophils Absolute Auto 0.1 X10*3/uL (0.0-0.4); Eosinophils Percent Auto 2.6 % (0-4); Hematocrit 39.9 % (37.0-47.0); Hemoglobin 13.8 g/dl (12.0-16.0); Imm Gran Abs Auto 0.01 X10*3/uL (0.00-0.03); Imm Gran Pct Auto 0.2 % (0.0-0.4); Lymphocytes Absolute Auto 2.2 X10*3/uL (1.2-4.9); Mean Corpuscular HGB Conc 34.6 g/dl (31.0-35.0); Mean Corpuscular Hemoglobin 30.2 pg (27.0-33.0); Mean Corpuscular Volume 87.3 fL (80.0-98.0); Mean Platelet Volume 9.9 fL (9.4-12.3); Monocytes Absolute Auto 0.4 X10*3/uL (0.1-1.2); Monocytes Percent Auto 8.8 % (2-11); Neutrophils Absolute Auto 2.2 x10*3/uL (2.0-8.3); Neutrophils Percent Auto 44.6 % (45-73); Platelet Count 206 X10*3/uL (160-400); Red Blood Count 4.57 X10*6/uL (4.20-5.50); Red Cell Distribution Width 11.9 % (11.0-16.0)
[2024-01-12 14:55] LABS: Appearance Urine Clear; Color Urine Yellow; Glucose Urine UA Negative (Negative); Leukocyte Esterase Urine Negative (Negative); Nitrite Urine Negative (Negative); Specific Gravity - Urine 1.015 (1.005-1.025); Urine Blood Negative (Negative); Urine Ketones Negative (Negative); Urine Protein Negative (Neg-Trace)
[2024-01-12 15:08] LABS: Alanine Aminotransferase 10 U/L (0-31); Albumin Level 3.7 g/dL (3.5-5.0); Alkaline Phosphatase 65 U/L (39-117); Anion Gap 11 (12-20); Aspartate Amino Transferase 19 U/L (5-31); Bilirubin Total 0.3 mg/dL (0.0-1.0); Blood Urea Nitrogen 12 mg/dL (9-16); Calcium 9.6 mg/dL (8.4-10.2); Carbon Dioxide 27 mmol/L (22-29); Chloride 107 mmol/L (96-108); Creatinine Clr Calc Pharmacy 76.2; Estimated Glomerular Filt Rate > 60; Glucose Random 118 mg/dL (60-115); Potassium 3.6 mmol/L (3.3-5.1); Sodium 141 mmol/L (135-145); Total Protein 7.2 g/dL (6.5-8.0)
[2024-01-12 16:00] VITALS: BP 101/68; PULSE 61; RESP 16; O2SAT 97
[2024-01-12 19:06] VITALS: BP 104/79; PULSE 63; RESP 18; TEMP 36.7; O2SAT 97
== END 2024-01-12 19:16 | disposition home or self-care (01) ==
PROVIDERS: Student in an Organized Health Care Education/Training Program; Emergency Provider Student in an Organized Health Care Education/Training Program
DX: R29.810 Facial weakness (principal); R51.9 Headache, unspecified; R29.701 NIHSS score 1; R41.82 Altered mental status, unspecified; Z79.899 Other long term (current) drug therapy; Z87.820 Personal history of traumatic brain injury
CPT/HCPCS: 36415; 51701; 70450; 80053; 81003; 85025; 93005; 99284; 99285

== ENCOUNTER → 2024-01-12 14:25 | Outpatient (BNV) | payer MEDICAID, SELFPAY | PROVIDERS: Emergency Provider Student in an Organized Health Care Education/Training Program; Visit Provider Internal Medicine Cardiovascular Disease | DX: R41.82 Altered mental status, unspecified (principal) | CPT/HCPCS: 93010 ==

== ENCOUNTER 2024-02-09 13:20 | Outpatient (REF) | payer MEDICAID, SELFPAY | END 2024-02-09 13:21 | disposition home or self-care (01) | LOC: HO.MAMMO 13:20 | PROVIDERS: PCP Hospitalist; Visit Provider Hospitalist | DX: Z12.31 Encounter for screening mammogram for malignant neoplasm of breast (principal) | CPT/HCPCS: 77063; 77067 ==

== ENCOUNTER → 2024-02-09 13:30 | Outpatient (BNV) | payer MEDICAID, SELFPAY | PROVIDERS: PCP Hospitalist; Visit Provider Internal Medicine | DX: Z12.31 Encounter for screening mammogram for malignant neoplasm of breast (principal) | CPT/HCPCS: 77063; 77067 ==

== ENCOUNTER 2024-12-21 12:51 | Outpatient (AMB) | payer MEDICAID, SELFPAY ==
--- NOTE | 2024-12-21 13:07 | A.OFFVIS_ITS ---
Vital Signs 12/21/24 13:19 Height 5 ft 9 in Weight 140 lb BMI 20.7 BP 104/66 Blood Pressure Location Lt brachial Position Sitting Pulse 64 Pulse Oximetry (%) 98 Oxygen Delivery Method Room Air Intake Visit Reasons: Colonoscopy Screening Intake Note: Patient new consult for 1st pre Colonoscopy screening Patient cc: diarrhea on and off, denies any other GI issues. 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 Referred for pre colonoscopy screening. Patient is accompanied by Cathleen from [facility]. She denies prior colonoscopy or stool-based CRC testing. She reports bowel movements occurring almost daily, with occasional constipation, and a rare episode of diarrhea (approx. monthly) not linked to specific foods. Her diarrhea is sometimes associated with flares of known hemorrhoids, which are self-managed with rkyy-bsu-qvbdtsw antidiarrheals (Imodium), resulting in resolution. No GI bleeding reported apart from hemorrhoids, and no concerning weight loss. She is on famotidine for reflux but denies current heartburn symptoms. Relevant comorbidities include history of CVA (10 years ago) resulting in left- sided weakness and blindness, as well as overactive bladder managed medically. No anticoagulation use. Recent lab review (Dec 2023) shows no anemia or end-organ dysfunction (renal, hepatic labs wnl). Family history is notable for father with colon ca dx at age 80. Patient denies: fever/chills, n/v, appetite changes, pyrosis, regurgitation,dysphasia, unintentional wt loss, ab pain or melena/hematochezia. Social hx: -denies ETOH use, (abstinent since stroke) -denies recreational drug use -former smoker, cessation 3 years ago - family hx as below -denies personal hx of CA -denies significant cardiopulmonary history -tolerated anesthesia in the past without difficulty. [facility] Medical History (Updated 12/21/24 @ 16:32 by Christina Ga CNP) Hemorrhoids Colon cancer screening Presbyopia Overactive bladder Dysarthria Exotropia GERD (gastroesophageal reflux disease) Hyperlipidemia Legal blindness Major depressive disorder Bipolar 1 disorder Hemiplegia Family History Father Colon cancer Social History (Updated 12/21/24 @ 13:17 by Essence Suárez) Alcohol intake: current Alcohol intake frequency: holidays/special occasions only Patient Tobacco Use Status: Former Tobacco user Use of substances other than those prescribed or required for medical reasons: Yes Substance Use Type: Marijuana Review of Systems Const Reports as per HPI ENT Reports as per HPI Card Reports as per HPI Resp Reports as per HPI GI Reports as per HPI Reports as per HPI Physical Exam Vital Signs: Last Vital Signs Pulse 64 12/21/24 13:19 BP 104/66 12/21/24 13:19 Pulse Ox 98 12/21/24 13:19 Oxygen Delivery Method Room Air 12/21/24 13:19 BMI result Body Mass Index 20.7 Const General: healthy appearing, no acute distress and well developed Nutritional Appearance: average body habitus Orientation/consciousness: patient oriented x3 HEENT Head: Yes normal to inspection, Yes normocephalic and Yes atraumatic Face and sinus: Yes normal facial exam Eyes General: appearance normal, both eyes and all related structures Neck Neck: Yes normal visual inspection Resp Effort & Inspection: normal respiratory effort, able to speak in complete sentences, no tracheal deviation and symmetric chest movement Cardio Jugular venous distension: no JVD GI Inspection: Yes normal to inspection and No distended Palpation (GI): Soft to palpation, not firm, nontender and No hepatosplenomegaly present Auscultation: normal bowel sounds Neuro General: patient oriented x3 Gait exam (Neuro): Assistive device used (wheelchair-bound) Psych Appearance: grossly normal Mental Status: mental status grossly normal Speech and movement: Normal speech and movement present Affect: normal affect Attitude: cooperative Thought process: Normal thought process present Thought content: Normal thought content present Insight: Good insight present (Psych) Judgement: Good judgement present (Psych) Assessment & Plan Assessment & Plan (1) Colon cancer screening: Code(s): Z12.11 - Encounter for screening for malignant neoplasm of colon Category: Medical Plan: Appropriate for age, family history of colon ca, no prior CRC screening. Additional Testing: Colonoscopy scheduled; pre-procedure labs satisfactory, no need for additional testing or specialty clearance at this time. Medication Management: Hold baby aspirin x7 days prior to procedure. Lifestyle Recommendations: Adhere to bowel prep instructions; clear liquid diet day prior to procedure with clear directions to avoid red/blue/purple drinks. Written instructions provided. Follow-Up: Clinic review post-procedure for results and further recommendations. (2) GERD (gastroesophageal reflux disease): Code(s): K21.9 - Gastro-esophageal reflux disease without esophagitis Category: Medical Qualifiers: Esophagitis presence: esophagitis presence not specified Qualified Code(s): K21.9 - Gastro-esophageal reflux disease without esophagitis Plan: History of reflux, currently well controlled on famotidine; no active sx, but upper endoscopy reasonable at time of colonoscopy for baseline evaluation due to med use and incomplete prior workup. Additional Testing: EGD scheduled concurrently with colonoscopy. Medication Management: Continue famotidine. Lifestyle Recommendations: No specific adjustments at this time; monitor for change in symptoms. Follow-Up: Re-evaluate after endoscopy. (3) Hemorrhoids: Code(s): K64.9 - Unspecified hemorrhoids Category: Medical Qualifiers: Hemorrhoid type: unspecified Qualified Code(s): K64.9 - Unspecified hemorrhoids Plan: Established dx, rare flare associated with diarrhea, self-managed, no acute issues at present. Additional Testing: None at this time. Medication Management: Continue OTC as needed. Lifestyle Recommendations: Maintain bowel regularity; report persistent bleeding or unmanageable sx. Follow-Up: As needed for recurrent or uncontrolled sx. Plan Follow-up after endoscopy or sooner as needed Time: I spent a total of 45 minutes on the date of encounter which includes: Preparing to see the patient (reviewed previous documentation, test results and medical history) Performing a medically appropriate exam and/or evaluation Ordering medications, tests, and procedures Documenting clinical information in the health record Orders: Referrals GI Procedure Notification K21.9 - Gastro-esophageal reflux disease without esophagitis, Z12.11 - Encounter for screening for malignant neoplasm of colon Medications: New polyethylene glycol 3350 (Miralax) per colonoscopy prep instructions 238 grams PO ONCE 238 grams 0RF bisacodyl Take per colonoscopy instructions 20 mg (4 x 5 mg) PO ONCE 4 tabs 0RF Coding Level of Care Code New Pt New Pt Level 4 (85909) Patient Type New Diagnoses Colon cancer screening Z12.11 Gastroesophageal reflux disease, unspecified whether esophagitis present K21.9 Esophagitis presence: esophagitis presence not specified Hemorrhoids, unspecified hemorrhoid type K64.9 Hemorrhoid type: unspecified
[2024-12-21 13:19] VITALS: BP 104/66; PULSE 64; O2SAT 98; BMI 20.7
--- OUTSIDE RECORDS SUMMARY | 2024-12-21 16:01 | XMS_ITS | Encounter Summary ---
Author Organization [facility] Address [address] [place] [address] Care Team Providers Care Neuroscientist Name Role Phone Kaleb Ko MD Primary Care Provider [phone] Encounter Details Date Type Department Care Team (Late st Contact Info) Description 08/18/2024 Lab Requisition [facility] - Main Lab [address] [facility] [place] [phone] Kaleb Ko MD [address] [place] [address] [address] [place], [place] Encounter for therapeutic drug level monitoring; Encounter for other specified special examinations; Other chronic pain Social History Tobacco Use Types Packs/Day Years Used Date Smoking Tobacco: Never Assessed Comments Unknown Sex and Gender Information Value Date Recorded Sex Assigned at Not on file Legal Sex Female 11:46 PM EST Gender Identity Not on file Sexual Orientation Not on file documented as of this encounter Plan of Treatment Not on file documented as of this encounter Procedures Procedure Name Priority Date/Time Associated Diagnosis Comments SST - GOLD Routine 08/18/2024 7:05 AM EDT Encounter for therapeutic drug level monitoring Encounter for other specified special examinations Other chronic pain GABAPENTIN LEVEL Routine 08/18/2024 7:05 AM EDT Encounter for therapeutic drug level monitoring Encounter for other specified special examinations Other chronic pain HEMOGLOBIN A1C Routine 08/18/2024 7:05 AM EDT Encounter for therapeutic drug level monitoring Encounter for other specified special examinations Other chronic pain documented in this encounter Results * SST tube (08/18/2024 7:05 AM EDT) Extra Tube Hold for add-ons. 08/21/2024 10:01 AM EDT [facility] Comment:Auto resulted. Blood Venous blood specimen / Unknown 08/18/2024 7:05 AM EDT 08/18/2024 7:57 AM EDT us Kaleb Ko MD LAB BLOOD ORDERABLES Final Resul t Performing Organization Address [facility]/ZIP Co de Phone Number [facility] [address] [place] [address], [place] [phone] * Hemoglobin A1c (08/18/2024 7:05 AM EDT) Hemoglobin A1C 5.8 <6.5 % LAB CHEMISTRY METHOD 08/18/2024 12:34 PM EDT [facility] Mean Bld Glu Estim. 120 mg/dL LAB CHEMISTRY METHOD 08/18/2024 12:34 PM EDT [facility] Blood Venous blood specimen / Unknown 08/18/2024 7:05 AM EDT 08/18/2024 7:57 AM EDT us Kaleb Ko MD LAB BLOOD ORDERABLES Final Resul t Performing Organization Address [facility] de Phone Number [facility] [address] [place] [address], [place] [phone] * Gabapentin level (08/18/2024 7:05 AM EDT) Gabapentin 5.9 2.0 - 12.0 ug/mL 08/21/2024 6:51 AM EDT [facility] Comment: If applicable, any drug confirmation testing reported here was developed and the performance characteristics determined by [facility]. This confirmation testing has not been cleared or approved by the FDA. The laboratory is regulated under CLIA as qualified to perform high-complexity testing. This test is used for patient testing purposes. It should not be regarded as investigational or for research. Test performed at [facility], [address] , [place] [address] Smitha Mesa MD, PhD - Wood Crafter Blood Venous blood specimen / Unknown 08/18/2024 7:05 AM EDT 08/18/2024 7:57 AM EDT us Kaleb Ko MD LAB BLOOD ORDERABLES Final Resul t [facility] [address] [place] [address] documented in this encounter Visit Diagnoses Diagnosis Encounter for therapeutic drug level monitoring Encounter for other specified special examinations Other chronic pain documented in this encounter Care Teams Neuroscientist Relationship Specialty Start Date End Date Kaleb Ko MD [address] [place] [address] Dr [address] MARK Garcia PCP - General Internal Medicine 03/24/24 documented as of this encounter
--- OUTSIDE RECORDS SUMMARY | 2024-12-21 16:01 | XMS_ITS | Encounter Summary ---
Author Organization [facility] Address [address] [place] [address] Care Team Providers Care Crystal Slicer Name Role Phone Kaleb Ko MD Primary Care Provider [phone] Encounter Details Date Type Department Care Team (Late st Contact Info) Description 09/04/2024 Lab Requisition [facility] - Main Lab [address] [facility] [place] [phone] Kaleb Ko MD [address] [place] [address] Dr [address] [place], [place] Hemiplegia and hemiparesis following nontraumatic intracerebral hemorrhage affecting left non-dominant side (CMS/HCC V24, CMS/HCC V28) Social History Tobacco Use Types Packs/Day Years [...] Procedure Name Priority Date/Time Associated Diagnosis Comments LIPID PANEL WITH REFLEX TO DIRECT LDL Routine 09/04/2024 6:49 AM EDT Hemiplegia and hemiparesis following nontraumatic intracerebral hemorrhage affecting left non-dominant side (CMS/HCC V24, CMS/HCC V28) COMPLETE BLOOD COUNT Routine 09/04/2024 6:49 AM EDT Hemiplegia and hemiparesis following nontraumatic intracerebral hemorrhage affecting left non-dominant side (CMS/HCC V24, CMS/HCC V28) THYROID STIMULATING HORMONE Routine 09/04/2024 6:49 AM EDT Hemiplegia and hemiparesis following nontraumatic intracerebral hemorrhage affecting left non-dominant side (CMS/HCC V24, CMS/HCC V28) COMPREHENSIVE METABOLIC PANEL Routine 09/04/2024 6:49 AM EDT Hemiplegia and hemiparesis following nontraumatic intracerebral hemorrhage affecting left non-dominant side (CMS/HCC V24, CMS/HCC V28) documented in this encounter Results * Complete blood count (09/04/2024 6:49 AM EDT) [facility] WBC 6.3 4.8 - 10.8 K/mcL LAB HEMETOLOGY METHOD 09/04/2024 8:35 AM EDT [facility] RBC 4.30 3.80 - 4.80 M/mcL LAB HEMETOLOGY METHOD 09/04/2024 8:35 AM [facility] Hemoglobin 12.3 11.5 - 16.0 g/dL LAB HEMETOLOGY METHOD 09/04/2024 8:35 AM [facility] Hematocrit 37.8 35.0 - 47.0 % LAB HEMETOLOGY METHOD 09/04/2024 8:35 AM [facility] MCV 88.7 79.0 - 98.0 FL LAB HEMETOLOGY METHOD 09/04/2024 8:35 AM [facility] MCH 28.9 27.0 - 32.0 pcg LAB HEMETOLOGY METHOD 09/04/2024 8:35 AM [facility] MCHC 32.5 32.0 - 37.0 g/dL LAB HEMETOLOGY METHOD 09/04/2024 8:35 AM [facility] RDW 11.9 11.0 - 15.0 % LAB HEMETOLOGY METHOD 09/04/2024 8:35 AM [facility] Platelets 207 130 - 400 K/mcL LAB HEMETOLOGY METHOD 09/04/2024 8:35 AM [facility] MPV 10.0 7.0 - 11.0 FL LAB HEMETOLOGY METHOD 09/04/2024 8:35 AM EDT [facility] NRBC 0.0 <1.0 % LAB HEMETOLOGY METHOD 09/04/2024 8:35 AM EDT [facility] NRBC Absolute 0.00 <0.10 K/mcL LAB HEMETOLOGY METHOD 09/04/2024 8:35 AM EDT [facility] Blood Venous blood specimen / Unknown 09/04/2024 6:49 AM EDT 09/04/2024 8:12 AM EDT us Kaleb Ko MD LAB BLOOD ORDERABLES Final Resul t Performing Organization Address City/[facility]/ZIP Co de Phone Number [facility] [address] [place] [address], [place] [phone] * Thyroid stimulating hormone (09/04/2024 6:49 AM EDT) TSH 1.62 0.40 - 4.00 mcIU/mL LAB CHEMISTRY METHOD 09/04/2024 11:33 AM EDT [facility] Blood Venous blood specimen / Unknown 09/04/2024 6:49 AM EDT 09/04/2024 8:12 AM EDT us Kaleb Ko MD LAB BLOOD ORDERABLES Final Resul t Performing Organization Address City/[facility]/ZIP Co de Phone Number [facility] [address] [place] [address], [place] [phone] * Lipid panel with reflex to direct LDL (09/04/2024 6:49 AM EDT) Cholesterol 147 0 - 200 mg/dL LAB CHEMISTRY METHOD 09/04/2024 9:09 AM EDT [facility] Triglycerides 66 0 - 150 mg/dL LAB CHEMISTRY METHOD 09/04/2024 9:09 AM EDT [facility] HDL 51 >=40 mg/dL LAB CHEMISTRY METHOD 09/04/2024 9:09 AM EDT [facility] LDL Calculated 83 0 - 100 mg/dL LAB CHEMISTRY METHOD 09/04/2024 9:09 AM [facility] VLDL Cholesterol Luis 13.2 mg/dL LAB CHEMISTRY METHOD 09/04/2024 9:09 AM EDT [facility] Non HDL Chol. (LDL+VLDL) 96 <145 mg/dL LAB CHEMISTRY METHOD 09/04/2024 9:09 AM [facility] Chol/HDL Ratio 2.9 0.0 - 4.4 LAB CHEMISTRY METHOD 09/04/2024 9:09 AM [facility] Blood Venous blood specimen / Unknown 09/04/2024 6:49 AM EDT 09/04/2024 8:12 AM EDT us Kaleb Ko MD LAB BLOOD ORDERABLES Final Resul t [facility] [address] [place] [address], * (ABNORMAL) Comprehensive metabolic panel (09/04/2024 6:49 AM EDT) Sodium 138 133 - 145 mmol/L LAB CHEMISTRY METHOD 09/04/2024 9:09 AM [facility] Potassium 3.9 3.5 - 5.5 mmol/L LAB CHEMISTRY METHOD 09/04/2024 9:09 AM [facility] Chloride 106 96 - 110 mmol/L LAB CHEMISTRY METHOD 09/04/2024 9:09 AM [facility] CO2 27 21 - 32 mmol/L LAB CHEMISTRY METHOD 09/04/2024 9:09 AM [facility] Anion Gap 5 3 - 11 LAB CHEMISTRY METHOD 09/04/2024 9:09 [facility] Glucose 123(H) 70 - 100 mg/dL LAB CHEMISTRY METHOD 09/04/2024 9:09 AM [facility] BUN 17 5 - 25 mg/dL LAB CHEMISTRY METHOD 09/04/2024 9:09 AM [facility] Creatinine 0.69 0.50 - 1.10 mg/dL LAB CHEMISTRY METHOD 09/04/2024 9:09 AM [facility] eGFR 98 >=60 mL/min/1. 73m2 LAB CHEMISTRY METHOD 09/04/2024 9:09 AM [facility] Comment:Calculation based on the Chronic Kidney Disease Epidemiology Collaboration (CKD-EPI) equation refit without adjustment for race. BUN/Creatinine Ratio 24.6 LAB CHEMISTRY METHOD 09/04/2024 9:09 AM [facility] Calcium 9.2 8.5 - 10.5 mg/dL LAB CHEMISTRY METHOD 09/04/2024 9:09 AM [facility] AST (SGOT) 12 10 - 42 unit/L LAB CHEMISTRY METHOD 09/04/2024 9:09 AM [facility] ALT (SGPT) 15 10 - 60 unit/L LAB CHEMISTRY METHOD 09/04/2024 9:09 AM [facility] Alkaline Phosphatase 72 42 - 121 unit/L LAB CHEMISTRY METHOD 09/04/2024 9:09 AM [facility] Total Protein 6.9 6.0 - 8.0 g/dL LAB CHEMISTRY METHOD 09/04/2024 9:09 AM [facility] Albumin 3.3 3.2 - 5.0 g/dL LAB CHEMISTRY METHOD 09/04/2024 9:09 AM [facility] Total Bilirubin 0.4 0.0 - 1.4 mg/dL LAB CHEMISTRY METHOD 09/04/2024 9:09 AM [facility] Blood Venous blood specimen / Unknown 09/04/2024 6:49 AM EDT 09/04/2024 8:12 AM EDT Kaleb Ko MD LAB BLOOD ORDERABLES Final Resul t [facility] ([facility]) [facility] [address] [place] [address], documented in this encounter Visit Diagnoses Diagnosis Hemiplegia and hemiparesis following nontraumatic intracerebral hemorrhage affecting left non-dominant side (CMS/HCC V24, CMS/HCC V28) documented in this encounter Care Teams Crystal Slicer Relationship Specialty Start Date End Date Kaleb Ko MD [address] [place] [address] Dr [address] [place], [place] PCP - General Internal Medicine 03/24/24 documented as of this encounter
--- OUTSIDE RECORDS SUMMARY | 2024-12-21 16:01 | XMS_ITS | Encounter Summary ---
Author Organization [facility] Address [address] [place] [address] Care Team Providers Care Salesperson Meats Name Role Phone Kaleb Ko MD Primary Care Provider [phone] Encounter Details Date Type Department Care Team (Late st Contact Info) Description 09/15/2024 Lab Requisition [facility] - Main Lab [address] [place] [phone] Kaleb Ko MD [address] [place] [address] [address] [place], [place] Vitamin deficiency, unspecified Social History Tobacco Use Types Packs/Day Years [...] Procedure Name Priority Date/Time Associated Diagnosis Comments VITAMIN D 25 HYDROXY Routine 09/15/2024 6:46 AM EDT Vitamin deficiency, unspecified documented in this encounter Results * (ABNORMAL) Vitamin D 25 hydroxy (09/15/2024 6:46 AM EDT) Vit D, 25-Hydroxy 29.0(L) 30.0 - 80.0 ng/mL LAB CHEMISTRY METHOD 09/15/2024 9:42 AM EDT [facility] Blood Venous blood specimen / Unknown 09/15/2024 6:46 AM EDT 09/15/2024 7:28 AM EDT us Kaleb Ko MD LAB BLOOD ORDERABLES Final Resul t [facility] [address] [place] [address], documented in this encounter Visit Diagnoses Diagnosis Vitamin deficiency, unspecified documented in this encounter Care Teams Salesperson Meats Relationship Specialty Start Date End Date Kaleb Ko MD [address] [place] [address] Dr [address] [place], [place] PCP - General Internal Medicine 03/24/24 documented as of this encounter
--- OUTSIDE RECORDS SUMMARY | 2024-12-21 16:01 | XMS_ITS | Encounter Summary ---
Author Organization [facility] Address [address] [place] [address] Care Team Providers Care Sonography Technician Name Role Phone Kaleb Ko MD Primary Care Provider [phone] Encounter Details Date Type Department Care Team (Late st Contact Info) Description 06/23/2024 Lab Requisition [facility] - Main Lab [address] [place] [phone] Kaleb Ko MD [address] [place] [address] [address] [place], [place] Hemiplegia and hemiparesis following nontraumatic intracerebral hemorrhage affecting left non-dominant side (CMS/[facility] V24, [facility] V28) Social History Tobacco Use Types Packs/Day [...] Diagnosis Comments VITAMIN D 25 HYDROXY Routine 06/23/2024 6:10 AM EDT Hemiplegia and hemiparesis following nontraumatic intracerebral hemorrhage affecting left non-dominant side (CMS/HCC V24, CMS/[facility] V28) documented in this encounter Results * Vitamin D 25 hydroxy (06/23/2024 6:10 AM EDT) Vit D, 25-Hydroxy 31.4 30.0 - 80.0 ng/mL LAB CHEMISTRY METHOD 06/23/2024 11:05 AM EDT [facility] ([facility]) [facility] Blood Venous blood specimen / Unknown 06/23/2024 6:10 AM EDT 06/23/2024 6:45 AM EDT us Kaleb Ko MD LAB BLOOD ORDERABLES Final Resul t [facility] [address] [place] [address], documented in this encounter Visit Diagnoses Diagnosis Hemiplegia and hemiparesis following nontraumatic intracerebral hemorrhage affecting left non-dominant side (CMS/HCC V24, CMS/HCC V28) documented in this encounter Care Teams Sonography Technician Relationship Specialty Start Date End Date Kaleb Ko MD [address] [facility] [address] [place], [place] PCP - General Internal Medicine 03/24/24 documented as of this encounter
--- OUTSIDE RECORDS SUMMARY | 2024-12-21 16:01 | XMS_ITS | Clinical Summary ---
Author Organization [facility] Address [address] [id number] Phone Care Team Providers Care Creative Manager Name Role Phone Kaleb Ko DO Primary Care Provider [phone] Allergies Active Allergy Reactions Criticality Noted Date Comments Divalproex Unknown 02/05/2016 Erythromycin Unknown 02/05/2016 Lamotrigine Unknown 02/05/2016 Medications aspirin 81 MG EC tablet Take 81 mg by mouth every morning. Active loratadine (CLARITIN) 10 mg tablet Take 10 mg by mouth every evening. Active benztropine (COGENTIN) 1 MG tablet Take 1 mg by mouth 2 (two) times a day. Active hydrOXYzine (ATARAX) 25 MG tablet Take 25 mg by mouth daily. Active risperiDONE (RISPERDAL M-TABS) 0.5 MG disintegrating tablet Take 0.5 mg by mouth 2 (two) times a day. Active gabapentin (NEURONTIN) 300 MG capsule Take 300 mg by mouth 2 (two) times a day. Active loperamide (IMODIUM) 2 mg capsule Take 2 mg by mouth every 2 (two) hours as needed. Active bisacodyl (DULCOLAX) [address] 10 mg rectally as needed. Active senna (SENNA) 8.6 mg tablet Take 1 tablet by mouth as needed. Active acetaminophen 325 mg Cap Take 2 tablets by mouth every 4 (four) hours as needed. Active butalbital-acetami nophen-caffeine (ESGIC) 50-325-40 mg per tablet Take 1 tablet by mouth 3 (three) times a day. Active calcium carbonate (ANTACID, CALCIUM CARBONATE,) 215 mg calcium (500 mg) Chew Take 2 tablets by mouth every 4 (four) hours as needed. Active aspirin-acetaminop hen-caffeine (EXCEDRIN MIGRAINE) 250-250-65 mg per tablet Take 1 tablet by mouth every third day as needed. Active monobasic and dibasic sodium phosphates (FLEET ENEMA) 19-7 gram/[address] rectally daily as needed. Active atorvastatin (LIPITOR) 20 MG tablet Take 20 mg by mouth daily. Active mirtazapine (REMERON) 7.5 MG tablet Take 7.5 mg by mouth nightly at bedtime. Active omeprazole (PRILOSEC) 40 MG capsule Take 40 mg by mouth daily. Active oxybutynin (DITROPAN XL) 15 MG 24 hr tablet Take 15 mg by mouth every evening. Active carboxymethylcellu lose (REFRESH TEARS) 0.5 % Drop 1 drop 3 (three) times a day. Active ASPERCREME, LIDOCAINE, TP 4 % by Topical (Top) route every 8 (eight) hours as needed. Aspercreme w/ Lidocaine Cream 4% Active lanolin alcohol-mineral oil-w.petrolatum-c eresin (EUCERIN) Crea Apply topically every 6 (six) hours as needed. Active famotidine (PEPCID) 40 MG tablet Take 40 mg by mouth every evening. Active ibuprofen (ADVIL,MOTRIN) 600 MG tablet Take 600 mg by mouth every 6 (six) hours as needed for pain (specific location in comments). Active nicotine (NICODERM CQ) 7 mg/[address] 1 patch onto the skin daily. Active phenyleph/mineral oil/petrolat (PREPARATION H RECT) Place rectally every 6 (six) hours as needed. Active ergocalciferol, vitamin D2, (VITAMIN D2 ORAL) Take 50,000 Units by mouth every 30 (thirty) days. Active benzocaine (ORAJEL) 10 % mucosal gel Use as directed in the mouth or throat every 6 (six) hours as needed for pain (specific location in comments). Active benzocaine-menthoL (SORE THROAT, BENZOCAINE-MENTH,) 15-3.6 mg Lozg lozenge Use as directed 1 lozenge in the mouth or throat every 6 (six) hours as needed. Active Active Problems No known active problems Family History Medical History Relation Comments Diabetes Father Heart disease Father Heart disease Mother Relation Status Comments Father Mother Social History Tobacco Use Types Packs/Day Years Used Date Smoking Tobacco: Former Cigarettes Smokeless Tobacco: Never Alcohol Use Standard Drinks/Week Comments Not Currently 0 (1 standard drink = 0.6 oz pur e alcohol) Education Answer Date Recorded Are you interested in more education? Not on austin e 06/26/2022 Are you concerned about learning? Not on file 06/26/2022 No 06/26/2022 No 06/26/2022 Digital Access Answer Date Recorded No 07/25/2022 No 07/25/2022 Reliable internet access at home? Not on file 07/25/2022 Device with a working camera? Not on file Comments No Sex and Gender Information Value Date Recorded Sex Assigned at Not on file Legal Sex Female 9:46 PM EDT Gender Identity Not on file Sexual Orientation Not on file Last Filed Vital Signs Vital Sign Reading Time Taken Comments Blood Pressure 104/68 12/27/2018 12:10 PM EDT Pulse - - Temperature - - Respiratory Rate - - Oxygen Saturation - - Inhaled Oxygen Concentration - - Weight 84.8 kg (187 lb) 02/11/2017 8:54 AM EST Height - - Body Mass Index - - Plan of Treatment Health Maintenance Due Date Last Done Comments Adult Td,Tdap Booster 1960 LIPID PANEL 1961 DEPRESSION SCREENING 1973 SMOKING Hx and SMOKELESS TOBACCO SCREENING 1974 HEPATITIS C SCREENING 05/02/1979 HIV ONE-TIME SCREENING (18-6 5 YEARS) 05/02/1979 MAMMOGRAM 2001 COLOGUARD 2006 COLONOSCOPY 2006 COLORECTAL CANCER SCREENING 2006 FIT TEST 2006 FOBT 2006 SIGMOIDOSCOPY 2006 VIRTUAL COLONOSCOPY 2006 PNEUMOCOCCAL VACCINES (50+ years) (1 of 1 - PCV) 05/02/2011 ZOSTER VACCINES (1 of 2) 05/02/2011 PAP SMEAR 04/16/2023 04/16/2020, 07/27/2014, 07/19/2014 INFLUENZA VACCINE (#1) 2024 COVID-19 VACCINE (3 - 2024-2 6 season) 2024 03/27/2020, 03/06/2020 RSV VACCINE (1 - 1-dose 75+ series) 2036 HEPATITIS A VACCINES Aged Out No long er eligible based on patient's age to complete this topic HIB VACCINES Aged Out No longer eligi ble based on patient's age to complete this topic MENINGOCOCCAL VACCINES (ACWY) Aged Out No longer eligible based on patient's age to complete this topic MENINGOCOCCAL VACCINES (B) Aged Out N o longer eligible based on patient's age to complete this topic Medical Devices Not on file Procedures Procedure Name Priority Date/Time Associated Diagnosis Comments PAP TEST Routine 04/16/2020 12:00 AM EST from Last 3 Months or Most Recently Relevant to Health Maintenance Results * Pap Smear (04/16/2020 12:00 AM EST) 04/16/2020 04/17/2020 8:2 2 AM EST Narrative SEE NARRATIVE - 04/24/2020 10:02 [place] [address] Motion And Time Study Teacher: Ana Long MD FISH SMOKER Cytology Report FINAL DIAGNOSIS A. PAP SMEAR (SUREPATH) CE: SPECIMEN ADEQUACY: Satisfactory for evaluation; transformation zone present. INTERPRETATION: NEGATIVE FOR INTRAEPITHELIAL LESION OR MALIGNANCY. Reactive changes. Electronically Signed Out By: BHARGAVI Keita MD(ASCP) By his/her signature above, the pathologist listed as making the Final Diagnosis certifies that he/she has personally reviewed this case and confirmed or corrected the diagnosis. The Pap test is a screening test primarily for squamous cancers and precursors and has associated false-negative and false-positive results. New technologies such as liquid-based preparations may decrease but will not eliminate all false-negative results. Regular sampling and follow-up of unexplained clinical signs and symptoms are recommended to minimize false negative results. PROCEDURES/ADDENDA HPV Testing (Requested) Ordered Date: 04/17/2020 A. PAP SMEAR (SUREPATH) CE: Human Papilloma Virus Test Negative for high-risk human papillomavirus types 16, 18, 45 and the Other high risk probe set (Includes 31, 33, 35, 39, 51, 52, 56, 58, 59, 66, 68) by [employer] HR-HPV analysis. Clinical correlation is advised. This HPV test was performed at [facility], [address] [place] [address]. This test has been FDA approved for [facility] cervical cytology specimens. The accuracy and precision of this test for all other specimen sources has been verified in the Cytopathology Laboratory of the [facility] and has not been cleared or approved by the U.S. Food and Drug Administration. Clinical correlation is advised. CLINICAL HISTORY Date of Last Menstrual Period: Not Provided Menstrual History: Post Menopausal Other Clinical Conditions: Screening Pap SPECIMEN SOURCE A: PAP SMEAR (SUREPATH) CE Patient Name: ANABELA SPRING : 1960 (Age: 59) Sex: F Institution: [facility] Location: [facility] Date of Collection: 04/16/2020 Date of Reported: 04/18/2020 16:41 Results to: Marisel Ward MSN, BS Marisel Ward LIABILITY CLAIMS ADJUSTER CYTOLOGY ORDERABLES Edited Res ult - Final SEE NARRATIVE from Last 3 Months or Most Recently Relevant to Health Maintenance Insurance [place] [id number] [address] [id number] [address] [address] [place] [address] [address] [place] [address] [place] [address] MEDICAID Care Teams Creative Manager Relationship Specialty Start Date End Date Kaleb Ko DO [address] [place] [address] PCP - General Internal Medicine 12/31/16 Additional Source Comments The information contained in this document represents components of the legal health record. It is not the complete legal health record.[facility]
--- OUTSIDE RECORDS SUMMARY | 2024-12-21 16:01 | XMS_ITS | Encounter Summary ---
Author Organization [facility] Address [address] [place] [address] Care Team Providers Care Market Research Analyst Name Role Phone Kaleb Ko MD Primary Care Provider [phone] Encounter Details Date Type Department Care Team (Late st Contact Info) Description 04/17/2024 Lab Requisition [facility] - Main Lab [address] [place] [phone] Kaleb Ko MD [address] [place] [address] [address] [place], [place] Hemiplegia and hemiparesis following nontraumatic intracerebral [...] Procedure Name Priority Date/Time Associated Diagnosis Comments HEPATIC FUNCTION PANEL Routine 04/17/2024 6:42 AM EST Hemiplegia and hemiparesis following nontraumatic intracerebral hemorrhage affecting left non-dominant side (CMS/HCC) documented in this encounter Results * Hepatic function panel (04/17/2024 6:42 AM EST) Total Protein 6.6 6.0 - 8.0 g/dL LAB CHEMISTRY METHOD 04/17/2024 8:[address] [facility] Albumin 3.2 3.2 - 5.0 g/dL LAB CHEMISTRY METHOD 04/17/2024 8:[address] [facility] Total Bilirubin 0.3 0.0 - 1.4 mg/dL LAB CHEMISTRY METHOD 04/17/2024 8:[address] [facility] Bilirubin, Direct <0.1 0.0 - 0.3 mg/dL LAB CHEMISTRY METHOD 04/17/2024 8:07 AM [facility] Bilirubin, Indirect LAB CHEMISTRY METHOD 04/17/2024 8:07 AM [facility] Comment:Unable to calculate Indirect Bilirubin. ALT (SGPT) 22 10 - 60 unit/L LAB CHEMISTRY METHOD 04/17/2024 8:07 AM [facility] AST (SGOT) 16 10 - 42 unit/L LAB CHEMISTRY METHOD 04/17/2024 8:07 AM [facility] Alkaline Phosphatase 66 42 - 121 unit/L LAB CHEMISTRY METHOD 04/17/2024 8:07 AM [facility] Blood Venous blood specimen / Unknown 04/17/2024 6:42 AM EST 04/17/2024 7:33 AM EST us Kaleb Ko MD LAB BLOOD ORDERABLES Final Resul t [facility] [address] [place] [address], documented in this encounter Visit Diagnoses Diagnosis Hemiplegia and hemiparesis following nontraumatic intracerebral hemorrhage affecting left non-dominant side (CMS/HCC V24, CMS/HCC V28) documented in this encounter Care Teams Market Research Analyst Relationship Specialty Start Date End Date Kaleb Ko MD [address] Lei Garcia [place] PCP - General Internal Medicine 03/24/24 documented as of this encounter
--- OUTSIDE RECORDS SUMMARY | 2024-12-21 16:02 | XMS_ITS | Encounter Summary ---
Author Organization [facility] Address [address] [place] [address] Care Team Providers Care Cargo Supervisor Name Role Phone Kaleb Ko MD Primary Care Provider [phone] Encounter Details Date Type Department Care Team (Late st Contact Info) Description 09/25/2024 Lab Requisition [facility] - Main Lab [address] [facility] [place] [phone] Kaleb Ko MD [address] [place] [address] [address] [place], [place] Urinary tract infection, site not specified Social History Tobacco Use Types Packs/Day Years [...] Procedure Name Priority Date/Time Associated Diagnosis Comments URINALYSIS WITH REFLEX MICROSCOPIC Routine 09/24/2024 6:15 PM EDT Urinary tract infection, site not specified URINALYSIS WITH REFLEX MICROSCOPIC Routine 09/24/2024 6:15 PM EDT Urinary tract infection, site not specified CULTURE URINE Routine 09/24/2024 6:15 PM EDT Urinary tract infection, site not specified documented in this encounter Results * (ABNORMAL) Urinalysis with reflex microscopic (09/24/2024 6:15 PM EDT) Specific [place] Urine 1.031(H) 1.003 - 1.030 LAB URINALYSIS - AUTOMATED METHOD 09/25/2024 9:16 AM [facility] pH, Urine 5.5 5.0 - 8.0 pH LAB URINALYSIS - AUTOMATED METHOD 09/25/2024 9:16 AM [facility] Leukocytes, Urine Small(A) Negative LAB URINALYSIS - AUTOMATED METHOD 09/25/2024 9:16 AM [facility] Nitrite, Urine Negative Negative LAB URINALYSIS - AUTOMATED METHOD 09/25/2024 9:16 AM [facility] Protein, Urine 30(A) <=Trace mg/dL LAB URINALYSIS - AUTOMATED METHOD 09/25/2024 9:16 AM [facility] Glucose, Urine Negative Negative mg/dL LAB URINALYSIS - AUTOMATED METHOD 09/25/2024 9:16 AM [facility] Ketones, Urine Trace(A) Negative mg/dL LAB URINALYSIS - AUTOMATED METHOD 09/25/2024 9:16 AM [facility] Urobilinogen , Urine 1.0 0.2 - 1.0 mg/dL LAB URINALYSIS - AUTOMATED METHOD 09/25/2024 9:16 AM [facility] Bilirubin, Urine Negative Negative LAB URINALYSIS - AUTOMATED METHOD 09/25/2024 9:16 AM [facility] Blood, Urine Negative Negative LAB URINALYSIS - AUTOMATED METHOD 09/25/2024 9:16 AM [facility] RBC, Urine 1.0 0 - 4 /HPF LAB URINALYSIS - AUTOMATED METHOD 09/25/2024 9:16 AM [facility] WBC, Urine 16.5(H) 0 - 4 /HPF LAB URINALYSIS - AUTOMATED METHOD 09/25/2024 9:16 AM [facility] Squamous Epithelial, Urine 59 0 - 60 /LPF LAB URINALYSIS - AUTOMATED METHOD 09/25/2024 9:16 AM [facility] Crystals, Urine HEAVY CALCIUM OXALATE /LPF LAB URINALYSIS - AUTOMATED METHOD 09/25/2024 9:16 AM EDT [facility] Bacteria, Urine Many(A) Negative /HPF LAB URINALYSIS - AUTOMATED METHOD 09/25/2024 9:16 AM EDT [facility] Hyaline Casts, Urine 0.6 0 - 3 /LPF LAB URINALYSIS - AUTOMATED METHOD 09/25/2024 9:16 AM EDT [facility] Urine Urine specimen obtained by clean catch procedure / Unknown 09/24/2024 6:15 PM EDT 09/25/2024 6:56 AM EDT us Kaleb Ko MD LAB URINE ORDERABLES Final Resul t Performing Organization Address [facility]/ZIP Co de Phone Number [facility] [address] [place] [address], [place] [phone] * (ABNORMAL) Culture urine (09/24/2024 6:15 PM EDT) Culture, Urine >=100,000 CFU/mL Aerococcus urinae(A) LIZ 09/27/2024 11:22 AM EDT [facility] Comment: Susceptibility testing not routinely performed. If further therapeutic information is required, please consult an infectious disease specialist. Edited result: Previously reported as Gram Positive Cocci on 09/26/2024 at 1110 EDT. Urine Urine specimen obtained by clean catch procedure / Unknown Non-blood Collection / Unknown 09/24/2024 6:15 PM EDT 09/25/2024 6:56 AM EDT Narrative [facility] - 09/27/2024 11:22 AM EDT Additional colony types present in insignificant amounts. us Kaleb Ko MD LAB MICROBIOLOGY - GENERAL ORDER GEE Final Result Performing Organization Address [facility]/ZIP Co de Phone Number [facility] [address] [place] [address], [place] [phone] documented in this encounter Visit Diagnoses Diagnosis Urinary tract infection, site not specified documented in this encounter Care Teams Cargo Supervisor Relationship Specialty Start Date End Date Kaleb Ko MD [address] [place] [address] Dr [address] MARK Garcia PCP - General Internal Medicine 03/24/24 documented as of this encounter
--- OUTSIDE RECORDS SUMMARY | 2024-12-21 16:02 | XMS_ITS | Encounter Summary ---
Author Organization [facility] Address [address] [place] [address] Care Team Providers Care Electronics Design Engineer Name Role Phone Kaleb Ko MD Primary Care Provider [phone] Encounter Details Date Type Department Care Team (Late st Contact Info) Description 01/17/2024 Lab Requisition [facility] - Main Lab [address] [facility] [place] [phone] Kaleb Ko MD [address] [place] [address] [address] [place], [place] Hemiplegia and hemiparesis following nontraumatic intracerebral [...] Procedure Name Priority Date/Time Associated Diagnosis Comments GABAPENTIN LEVEL Routine 01/17/2024 6:30 AM EST Hemiplegia and hemiparesis following nontraumatic intracerebral hemorrhage affecting left non-dominant side (CMS/HCC) HEMOGLOBIN A1C Routine 01/17/2024 6:30 AM EST Hemiplegia and hemiparesis following nontraumatic intracerebral hemorrhage affecting left non-dominant side (CMS/HCC) documented in this encounter Results * Hemoglobin A1c (01/17/2024 6:30 AM EST) Hemoglobin A1C 5.2 <6.5 % LAB CHEMISTRY METHOD 01/18/2024 7:39 PM EST [facility] Mean Bld Glu Estim. 103 mg/dL LAB CHEMISTRY METHOD 01/18/2024 7:39 PM EST [facility] Blood Venous blood specimen / Unknown 01/17/2024 6:30 AM EST 01/17/2024 6:59 AM EST us Kaleb Ko MD LAB BLOOD ORDERABLES Final Resul t Performing Organization Address City/[facility]/ZIP Co de Phone Number [facility] [address] [place] [address], [place] [phone] * Gabapentin level (01/17/2024 6:30 AM EST) Gabapentin 5.9 2.0 - 12.0 ug/mL 01/20/2024 11:26 AM EST [facility] Comment: If applicable, any drug confirmation testing reported here was developed and the performance characteristics determined by [facility]. This confirmation testing has not been cleared or approved by the FDA. The laboratory is regulated under CLIA as qualified to perform high-complexity testing. This test is used for patient testing purposes. It should not be regarded as investigational or for research. Test performed at [facility], [address], [place] [address] Smitha Mesa MD, PhD - Interpreter [employer] Blood Venous blood specimen / Unknown 01/17/2024 6:30 AM EST 01/17/2024 6:59 AM EST us Kaleb Ko MD LAB BLOOD ORDERABLES Final Resul t [facility] [address] [place], [place] [phone] documented in this encounter Visit Diagnoses Diagnosis Hemiplegia and hemiparesis following nontraumatic intracerebral hemorrhage affecting left non-dominant side (CMS/HCC V24, CMS/HCC V28) documented in this encounter Care Teams Electronics Design Engineer Relationship Specialty Start Date End Date Kaleb Ko MD [address] [place] [address] Dr [address] [facility] [place], [place] PCP - General Internal Medicine 03/24/24 documented as of this encounter
--- OUTSIDE RECORDS SUMMARY | 2024-12-21 16:02 | XMS_ITS | Encounter Summary ---
Author Organization [facility] Address [address] [place] [address] Care Team Providers Care Pacu Rn Name Role Phone Kaleb Ko MD Primary Care Provider [phone] Encounter Details Date Type Department Care Team (Late st Contact Info) Description 11/21/2024 Lab Requisition [facility] - Main Lab [address] [facility] [place] [phone] Kaleb Ko MD [address] [place] [address] [address] [place], [place] Encounter for therapeutic drug level monitoring Social History Tobacco Use Types Packs/Day Years [...] Date/Time Associated Diagnosis Comments GABAPENTIN LEVEL Routine 11/21/2024 6:37 AM EDT Encounter for therapeutic drug level monitoring documented in this encounter Results * Gabapentin level (11/21/2024 6:37 AM EDT) Gabapentin 3.6 2.0 - 12.0 ug/mL 11/27/2024 7:26 AM EDT [facility] Comment: If applicable, any drug confirmation testing reported here was developed and the performance characteristics determined by [facility]. This confirmation testing has not been cleared or approved by the FDA. The laboratory is regulated under CLIA as qualified to perform high-complexity testing. This test is used for patient testing purposes. It should not be regarded as investigational or for research. Test performed at [facility], [address], [place] [address] [phone] Smitha Mesa MD, PhD - Special Effects Technician Blood Venous blood specimen / Unknown 11/21/2024 6:37 AM EDT 11/21/2024 7:43 AM EDT us Kaleb Ko MD LAB BLOOD ORDERABLES Final Resul t [facility] [address] [place] [address] documented in this encounter Visit Diagnoses Diagnosis Encounter for therapeutic drug level monitoring documented in this encounter Care Teams Pacu Rn Relationship Specialty Start Date End Date Kaleb Ko MD [address] [place] [address] [address] MARK Garcia PCP - General Internal Medicine 03/24/24 documented as of this encounter
--- OUTSIDE RECORDS SUMMARY | 2024-12-21 16:02 | XMS_ITS | Clinical Summary ---
Author Organization [facility] Address [address] [place] [address] Phone Care Team Providers Care Manager Research Development Name Role Phone Unavailable Primary Care Provider Unavailabl e Encounters Date Type Department Care Team Description 12/06/2024 1:15 PM EDT Office Visit [facility] Ophthalmology [address] [place] [address] Patricia Menendez MD Exotropia (Primary Dx); Ptosis of both eyelids 12/06/2024 Travel from Last 3 Months Social History Tobacco Use Types Packs/Day Years Used Date Smoking Tobacco: Never Assessed Comments Unknown Sex and Gender Information Value Date Recorded Sex Assigned at Not on file Legal Sex Female 12:52 PM EDT Gender Identity Not on file Sexual Orientation Not on file Plan of Treatment Health Maintenance Due Date Last Done Comments CT Colonography 1961 Cologuard 1961 Colonoscopy 1961 Colorectal Cancer Screening 1961 FIT 1961 FOBT 1961 Sigmoidoscopy 1961 TD Vaccine (21+ Years) 1961 MMR Vaccines (1 of 1 - Stand ced series) 1962 Hepatitis C Screening 05/02/1979 Pap Smear 1982 Cervical Cancer Screening 05/02/1991 HPV/Cotest 05/02/1991 Mammogram 2001 Pneumococcal Vaccine: 50+ Ye ars (1 of 1 - PCV) 05/02/2011 Zoster Vaccines (1 of 2) 05/02/2011 Influenza Vaccine (#1) 2024 HIB Vaccines Aged Out No longer eligi ble based on patient's age to complete this topic HPV Vaccines Aged Out No longer eligi ble based on patient's age to complete this topic Hepatitis A Vaccines Aged Out No long er eligible based on patient's age to complete this topic Hepatitis B Vaccines Aged Out No long er eligible based on patient's age to complete this topic IPV Vaccines Aged Out No longer eligi ble based on patient's age to complete this topic Meningococcal B Vaccine Aged Out No l onger eligible based on patient's age to complete this topic Meningococcal Vaccine Aged Out No sandra katty eligible based on patient's age to complete this topic Rotavirus Vaccines Aged Out No longer eligible based on patient's age to complete this topic Insurance [employer] AT [address] [id number] [place] MEDICAID
--- OUTSIDE RECORDS SUMMARY | 2024-12-21 16:02 | XMS_ITS | Encounter Summary ---
Author Organization [facility] Address [address] [place] [address] Care Team Providers Care Account Resolution Expert Name Role Phone Kaleb Ko MD Primary Care Provider [phone] Encounter Details Date Type Department Care Team (Late st Contact Info) Description 03/30/[address] [facility] - Main Lab [address] [place] [phone] Kaleb Ko MD [address] [place] [address] [address] [place], [place] Other fatigue Social History Tobacco Use Types Packs/Day Years [...] Diagnosis Comments VITAMIN D 25 HYDROXY Routine 03/30/2024 6:35 AM EST Other fatigue THYROID STIMULATING HORMONE Routine 03/30/2024 6:35 AM EST Other fatigue documented in this encounter Results * (ABNORMAL) Vitamin D 25 hydroxy (03/30/2024 6:35 AM EST) Vit D, 25-Hydroxy 25.6(L) 30.0 - 80.0 ng/mL LAB CHEMISTRY METHOD 03/30/2024 8:23 AM EST [facility] Blood Venous blood specimen / Unknown 03/30/2024 6:35 AM EST 03/30/2024 7:24 AM EST us Kaleb Snow MD LAB BLOOD ORDERABLES Final Resul t Performing Organization Address [facility]/ZIP Co de Phone Number [facility] [address] [place] [address], [place] [phone] * Thyroid stimulating hormone (03/30/2024 6:35 AM EST) TSH 3.23 0.40 - 4.00 mcIU/mL LAB CHEMISTRY METHOD 03/30/2024 8:23 AM EST [facility] Blood Venous blood specimen / Unknown 03/30/2024 6:35 AM EST 03/30/2024 7:24 AM EST us Kaleb Ko MD LAB BLOOD ORDERABLES Final Resul t Performing Organization Address [facility] Co de Phone Number [facility] [address] [place] [address], [place] [phone] documented in this encounter Visit Diagnoses Diagnosis Other fatigue documented in this encounter Care Teams Account Resolution Expert Relationship Specialty Start Date End Date Kaleb Ko MD [address] [facility] [address] [facility] [place] PCP - General Internal Medicine 03/24/24 documented as of this encounter
--- OUTSIDE RECORDS SUMMARY | 2024-12-21 16:02 | XMS_ITS | Clinical Summary ---
Author Organization [address] [facility] Address [address] [place] [address] Phone Care Team Providers Care Offset Printing Pressmen Name Role Phone Kaleb Ko MD Primary Care Provider [phone] Encounters Date Type Department Care Team Description 11/21/2024 Lab Requisition [facility] [address] [place] [phone] Kaleb Ko MD Encounter for therapeutic drug level monitoring 11/17/2024 Lab Requisition [facility] [address] [place] [phone] Kaleb Ko MD Hemiplegia and hemiparesis following nontraumatic intracerebral hemorrhage affecting left non-dominant side (CMS/HCC V24, CMS/HCC V28) 09/25/2024 Lab Requisition [facility] [address] [place] [phone] Kaleb Ko MD Urinary tract infection, site not specified from Last 3 Months Social History Tobacco Use Types Packs/Day Years Used Date Smoking Tobacco: Never Assessed Comments Unknown Sex and Gender Information Value Date Recorded Sex Assigned at Not on file Legal Sex Female 11:46 PM EST Gender Identity Not on file Sexual Orientation Not on file Plan of Treatment Health Maintenance Due Date Last Done Comments Breast Cancer Screening 1961 Colorectal Cancer Screening: Colonoscopy 1961 DTaP,Tdap,and Td Vaccines (1 - Tdap) 1980 Cervical Cancer Screening: P ap Smear 1982 Pneumococcal Vaccine: 50+ Years (1 of 1 - PCV) 05/02/2011 Zoster Vaccines (1 of 2) 05/02/2011 HIV Screening 02/01/2022 Hepatitis C Screening 02/01/2022 Social Influencers of Health Screening 02/01/2022 Depression Screening 03/01/2024 COVID-19 Vaccine (1 - 2023-2 5 season) 2024 Influenza Vaccine (#1) 2024 Cholesterol Screening (Lipid Panel) 09/04/2029 09/04/2024, 03/06/2024 RSV Immunization Adult Patients (1 - 1-dose 75+ series) 2036 HIB Vaccines Aged Out No longer eligi [...] on patient's age to complete this topic MMR Vaccines Aged Out No longer eligi ble based on patient's age to complete this topic Meningococcal ACWY Vaccine Aged Out N o longer eligible based on patient's age to complete this topic Meningococcal B Vaccine Aged Out No l onger eligible based on patient's age to complete this topic RSV Immunization Patients Under 20 months Aged Out No longer eligible b ased on patient's age to complete this topic Varicella Vaccines Aged Out No longer eligible based on patient's age to complete this topic Procedures Procedure Name Priority Date/Time Associated Diagnosis Comments GABAPENTIN LEVEL Routine 11/21/2024 6:37 AM EDT Encounter for therapeutic drug level monitoring HEMOGLOBIN A1C Routine 11/17/2024 6:48 AM EDT Hemiplegia and hemiparesis following nontraumatic intracerebral hemorrhage affecting left non-dominant side (CMS/HCC V24, CMS/HCC V28) GABAPENTIN LEVEL Routine 11/17/2024 6:48 AM EDT Hemiplegia and hemiparesis following nontraumatic intracerebral hemorrhage affecting left non-dominant side (CMS/HCC V24, CMS/HCC V28) URINALYSIS WITH REFLEX MICROSCOPIC Routine 09/24/2024 6:15 PM EDT Urinary tract infection, site not specified URINALYSIS WITH REFLEX MICROSCOPIC Routine 09/24/2024 6:15 PM EDT Urinary tract infection, site not specified CULTURE URINE Routine 09/24/2024 6:15 PM EDT Urinary tract infection, site not specified LIPID PANEL WITH REFLEX TO DIRECT LDL Routine 09/04/2024 6:49 AM EDT Hemiplegia and hemiparesis following nontraumatic intracerebral hemorrhage affecting left non-dominant side (CMS/HCC V24, CMS/HCC V28) from Last 3 Months or Most Recently Relevant to Health Maintenance Results * Gabapentin level (11/21/2024 6:37 AM EDT) Only the most recent of2 resultswithin the time period is included. Gabapentin 3.6 2.0 - 12.0 ug/mL 11/27/2024 7:26 AM EDT [facility] Comment: If applicable, any drug confirmation testing reported here was developed and the performance characteristics determined by [facility]. This confirmation testing has not been cleared or approved by the FDA. The laboratory is regulated under CLIA as qualified to perform high-complexity testing. This test is used for patient testing purposes. It should not be regarded as investigational or for research. Test performed at [facility], [address], [place], [place] [id number] Smitha Mesa MD, PhD - Adult Secondary Education Instructor Blood Venous blood specimen / Unknown 11/21/2024 6:37 AM EDT 11/21/2024 7:43 AM EDT us Kaleb Ko MD LAB BLOOD ORDERABLES Final Resul t [facility] [address] [place], [place] [id number] * Hemoglobin A1c (11/17/2024 6:48 AM EDT) Hemoglobin A1C 5.9 <6.5 % LAB CHEMISTRY METHOD 11/17/2024 1:28 PM EDT [facility] Mean Bld Glu Estim. 123 mg/dL LAB CHEMISTRY METHOD 11/17/2024 1:28 PM EDT [facility] Blood Venous blood specimen / Unknown 11/17/2024 6:48 AM EDT 11/17/2024 7:15 AM EDT us Kaleb Ko MD LAB BLOOD ORDERABLES Final Resul t [facility] [address] [place] [address], [place] [phone] * (ABNORMAL) Urinalysis with reflex microscopic (09/24/2024 6:15 PM EDT) Specific [place] Urine 1.031(H) 1.003 - 1.030 LAB URINALYSIS - AUTOMATED METHOD 09/25/2024 9:16 AM [facility] pH, Urine 5.5 5.0 - 8.0 pH LAB URINALYSIS - AUTOMATED METHOD 09/25/2024 9:16 AM [facility] Leukocytes, Urine Small(A) Negative LAB URINALYSIS - AUTOMATED METHOD 09/25/2024 9:16 AM [facility] Nitrite, Urine Negative Negative LAB URINALYSIS - AUTOMATED METHOD 09/25/2024 9:16 AM [facility] Protein, Urine 30(A) <=Trace mg/dL LAB URINALYSIS - AUTOMATED METHOD 09/25/2024 9:16 AM [facility] Glucose, Urine Negative Negative mg/dL LAB URINALYSIS - AUTOMATED METHOD 09/25/2024 9:16 AM [facility] Ketones, Urine Trace(A) Negative mg/dL LAB URINALYSIS - AUTOMATED METHOD 09/25/2024 9:16 AM [facility] Urobilinogen , Urine 1.0 0.2 - 1.0 mg/dL LAB URINALYSIS - AUTOMATED METHOD 09/25/2024 9:16 AM [facility] Bilirubin, Urine Negative Negative LAB URINALYSIS - AUTOMATED METHOD 09/25/2024 9:16 AM [facility] Blood, Urine Negative Negative LAB URINALYSIS - AUTOMATED METHOD 09/25/2024 9:16 AM [facility] RBC, Urine 1.0 0 - 4 /HPF LAB URINALYSIS - AUTOMATED METHOD 09/25/2024 9:16 AM [facility] WBC, Urine 16.5(H) 0 - 4 /HPF LAB URINALYSIS - AUTOMATED METHOD 09/25/2024 9:16 AM [facility] Squamous Epithelial, Urine 59 0 - 60 /LPF LAB URINALYSIS - AUTOMATED METHOD 09/25/2024 9:16 AM [facility] Crystals, Urine HEAVY CALCIUM OXALATE /LPF LAB URINALYSIS - AUTOMATED METHOD 09/25/2024 9:16 AM [facility] Bacteria, Urine Many(A) Negative /HPF LAB URINALYSIS - AUTOMATED METHOD 09/25/2024 9:16 AM [facility] Hyaline Casts, Urine 0.6 0 - 3 /LPF LAB URINALYSIS - AUTOMATED METHOD 09/25/2024 9:16 AM [facility] Urine Urine specimen obtained by clean catch procedure / Unknown 09/24/2024 6:15 PM EDT 09/25/2024 6:56 AM EDT us Kaleb Ko MD LAB URINE ORDERABLES Final Resul t [facility] [address] [place] [address], * (ABNORMAL) Culture urine (09/24/2024 6:15 PM EDT) Culture, Urine >=100,000 CFU/mL Aerococcus urinae(A) LIZ 09/27/2024 11:22 AM EDT [facility] Comment: Susceptibility testing not routinely performed. If further therapeutic information is required, please consult an infectious disease specialist. Edited result: Previously reported as Gram Positive Cocci on 09/26/2024 at 1110 EDT. Urine Urine specimen obtained by clean catch procedure / Unknown Non-blood Collection / Unknown 09/24/2024 6:15 PM EDT 09/25/2024 6:56 AM EDT Narrative [facility] - 09/27/2024 11:22 AM EDT Additional colony types present in insignificant amounts. us Kaleb Ko MD LAB MICROBIOLOGY - GENERAL ORDER GEE Final Result [facility] [address] [place] [address], [place] [phone] * Lipid panel with reflex to direct LDL (09/04/2024 6:49 AM EDT) Cholesterol 147 0 - 200 mg/dL LAB CHEMISTRY METHOD 09/04/2024 9:09 AM [facility] Triglycerides 66 0 - 150 mg/dL LAB CHEMISTRY METHOD 09/04/2024 9:09 AM [facility] HDL 51 >=40 mg/dL LAB CHEMISTRY METHOD 09/04/2024 9:09 AM [facility] LDL Calculated 83 0 - 100 mg/dL LAB CHEMISTRY METHOD 09/04/2024 9:09 AM [facility] VLDL Cholesterol Luis 13.2 mg/dL LAB CHEMISTRY METHOD 09/04/2024 9:09 AM [facility] Non HDL Chol. (LDL+VLDL) 96 <145 mg/dL LAB CHEMISTRY METHOD 09/04/2024 9:09 AM [facility] Chol/HDL Ratio 2.9 0.0 - 4.4 LAB CHEMISTRY METHOD 09/04/2024 9:09 AM EDT [facility] Blood Venous blood specimen / Unknown 09/04/2024 6:49 AM EDT 09/04/2024 8:12 AM EDT us Kaleb Ko MD LAB BLOOD ORDERABLES Final Resul t [facility] [address] [place] [address], from Last 3 Months or Most Recently Relevant to Health Maintenance Insurance MEDICAID - [place] SSL Care Teams Offset Printing Pressmen Relationship Specialty Start Date End Date Kaleb Ko MD [address] [place] [address] Dr [address] [place], [place] PCP - General Internal Medicine 03/24/24
--- OUTSIDE RECORDS SUMMARY | 2024-12-21 16:02 | XMS_ITS | Encounter Summary ---
Author Organization [facility] Address [address] [place] [address] Care Team Providers Care Combination Machine Tender Name Role Phone Kaleb Ko MD Primary Care Provider [phone] Encounter Details Date Type Department Care Team (Late st Contact Info) Description 02/18/2024 Lab Requisition [facility] [address] [facility] [place] [phone] Kaleb Ko MD [address] [place] [address] Dr [address] [place], [place] Hemiplegia and hemiparesis following nontraumatic intracerebral [...] Date/Time Associated Diagnosis Comments GABAPENTIN LEVEL Routine 02/18/2024 6:51 AM EST Hemiplegia and hemiparesis following nontraumatic intracerebral hemorrhage affecting left non-dominant side (CMS/HCC) HEMOGLOBIN A1C Routine 02/18/2024 6:51 AM EST Hemiplegia and hemiparesis following nontraumatic intracerebral hemorrhage affecting left non-dominant side (CMS/HCC) documented in this encounter Results * Gabapentin level (02/18/2024 6:51 AM EST) Gabapentin 5.9 2.0 - 12.0 ug/mL 02/21/2024 12:38 PM EST [facility] Comment: If applicable, any drug confirmation testing reported here was developed and the performance characteristics determined by [facility]. This confirmation testing has not been cleared or approved by the FDA. The laboratory is regulated under CLIA as qualified to perform high-complexity testing. This test is used for patient testing purposes. It should not be regarded as investigational or for research. Test performed at [facility], [address] , [place] [address] Smitha Mesa MD, PhD - Dyslexia Teacher Blood Venous blood specimen / Unknown 02/18/2024 6:51 AM EST 02/18/2024 7:41 AM EST us Kaleb Ko MD LAB BLOOD ORDERABLES Final Resul t Performing Organization Address [place] Co de Phone Number [facility] [address] [place] [address] * Hemoglobin A1c (02/18/2024 6:51 AM EST) Hemoglobin A1C 6.2 <6.5 % LAB CHEMISTRY METHOD 02/18/2024 1:55 PM EST [facility] Mean Bld Glu Estim. 131 mg/dL LAB CHEMISTRY METHOD 02/18/2024 1:55 PM EST [facility] Blood Venous blood specimen / Unknown 02/18/2024 6:51 AM EST 02/18/2024 7:41 AM EST us Kaleb Ko MD LAB BLOOD ORDERABLES Final Resul t Performing Organization Address [facility]/ZIP Co de Phone Number [facility] [address] [place] [address], [place] [phone] documented in this encounter Visit Diagnoses Diagnosis Hemiplegia and hemiparesis following nontraumatic intracerebral hemorrhage affecting left non-dominant side (CMS/HCC V24, CMS/HCC V28) documented in this encounter Care Teams Combination Machine Tender Relationship Specialty Start Date End Date Kaleb Ko MD [address] [place] [address] Dr Lei [facility] MARK Garcia PCP - General Internal Medicine 03/24/24 documented as of this encounter
--- OUTSIDE RECORDS SUMMARY | 2024-12-21 16:02 | XMS_ITS | Encounter Summary ---
Author Organization [facility] Address [address] [place] [address] Care Team Providers Care Supervisor Metal Hanging Name Role Phone Kaleb Ko MD Primary Care Provider Encounter Details Date Type Department Care Team (Late st Contact Info) Description 01/28/2024 Lab Requisition [facility] Lab [address] [place] [phone] Kaleb Ko MD [address] [place] [address] Dr [address] [place], [place] Weakness Social History Tobacco Use Types Packs/Day Years [...] Procedure Name Priority Date/Time Associated Diagnosis Comments CBC WITH AUTO DIFFERENTIAL Routine 01/28/2024 6:33 AM EST Weakness CBC AND DIFFERENTIAL Routine 01/28/2024 6:33 AM EST Weakness COMPREHENSIVE METABOLIC PANEL Routine 01/28/2024 6:33 AM EST Weakness documented in this encounter Results * (ABNORMAL) CBC auto differential (01/28/2024 6:33 AM EST) WBC 12.7(H) 4.8 - 10.8 K/[facility] HEMETOLOGY METHOD 01/28/2024 8:14 AM EST [facility] RBC 4.70 3.80 - 4.80 M/[facility] HEMETOLOGY METHOD 01/28/2024 8:14 AM [facility] Hemoglobin 14.0 11.5 - 16.0 g/dL LAB HEMETOLOGY METHOD 01/28/2024 8:14 AM [facility] Hematocrit 41.4 35.0 - 47.0 % LAB HEMETOLOGY METHOD 01/28/2024 8:14 AM [facility] MCV 88.3 79.0 - 98.0 FL LAB HEMETOLOGY METHOD 01/28/2024 8:14 AM [facility] MCH 29.9 27.0 - 32.0 pcg LAB HEMETOLOGY METHOD 01/28/2024 8:14 AM [facility] MCHC 33.8 32.0 - 37.0 g/dL LAB HEMETOLOGY METHOD 01/28/2024 8:14 AM [facility] RDW 12.1 11.0 - 15.0 % LAB HEMETOLOGY METHOD 01/28/2024 8:14 AM [facility] Platelets 246 130 - 400 K/mcL LAB HEMETOLOGY METHOD 01/28/2024 8:14 AM [facility] MPV 10.9 7.0 - 11.0 FL LAB HEMETOLOGY METHOD 01/28/2024 8:14 AM [facility] NRBC 0.0 <1.0 % LAB HEMETOLOGY METHOD 01/28/2024 8:14 AM [facility] NRBC Absolute 0.00 <0.10 K/mcL LAB HEMETOLOGY METHOD 01/28/2024 8:14 AM [facility] Neutrophils Relative 75.6 % LAB HEMETOLOGY METHOD 01/28/2024 8:14 AM [facility] Lymphocytes Relative 14.2 % LAB HEMETOLOGY METHOD 01/28/2024 8:14 AM [facility] Monocytes Relative 9.2 % LAB HEMETOLOGY METHOD 01/28/2024 8:14 AM EST [facility] Eosinophils Relative 0.1 % LAB HEMETOLOGY METHOD 01/28/2024 8:14 AM [facility] Basophils Relative 0.4 % LAB HEMETOLOGY METHOD 01/28/2024 8:14 AM [facility] Immature Granulocytes Relative 0.5 % LAB HEMETOLOGY METHOD 01/28/2024 8:14 AM EST [facility] Neutrophils Absolute 9.57(H) 1.50 - 7.00 K/mcL LAB HEMETOLOGY METHOD 01/28/2024 8:14 AM [facility] Lymphocytes Absolute 1.80 1.00 - 5.00 K/mcL LAB HEMETOLOGY METHOD 01/28/2024 8:14 AM [facility] Monocytes Absolute 1.17(H) 0.20 - 1.00 K/mcL LAB HEMETOLOGY METHOD 01/28/2024 8:14 AM EST [facility] Eosinophils Absolute 0.01 0.00 - 0.50 K/mcL LAB HEMETOLOGY METHOD 01/28/2024 8:14 AM EST [facility] Basophils Absolute 0.05 0.00 - 0.20 K/mcL LAB HEMETOLOGY METHOD 01/28/2024 8:14 AM [facility] Immature Granulocytes Absolute 0.06(H) 0.00 - 0.03 K/mcL LAB HEMETOLOGY METHOD 01/28/2024 8:14 AM [facility] Blood Venous blood specimen / Unknown 01/28/2024 6:33 AM EST 01/28/2024 7:54 AM EST us Kaleb Ko MD LAB BLOOD ORDERABLES Final Resul t [facility] [address] [place] [address], * (ABNORMAL) Comprehensive metabolic panel (01/28/2024 6:33 AM EST) Sodium 138 133 - 145 mmol/L LAB CHEMISTRY METHOD 01/28/2024 8:30 AM [facility] Potassium 3.7 3.5 - 5.5 mmol/L LAB CHEMISTRY METHOD 01/28/2024 8:30 AM [facility] Chloride 107 96 - 110 mmol/L LAB CHEMISTRY METHOD 01/28/2024 8:30 AM [facility] CO2 26 21 - 32 mmol/L LAB CHEMISTRY METHOD 01/28/2024 8:30 AM [facility] Anion Gap 5 3 - 11 LAB CHEMISTRY METHOD 01/28/2024 8:30 AM [facility] Glucose 157(H) 70 - 100 mg/dL LAB CHEMISTRY METHOD 01/28/2024 8:30 AM [facility] BUN 21 5 - 25 mg/dL LAB CHEMISTRY METHOD 01/28/2024 8:30 AM [facility] Creatinine 0.88 0.50 - 1.10 mg/dL LAB CHEMISTRY METHOD 01/28/2024 8:30 AM [facility] eGFR 74 >=60 mL/min/1. 73m2 LAB CHEMISTRY METHOD 01/28/2024 8:30 AM [facility] Comment:Calculation based on the Chronic Kidney Disease Epidemiology Collaboration (CKD-EPI) equation refit without adjustment for race. BUN/Creatinine Ratio 23.9 LAB CHEMISTRY METHOD 01/28/2024 8:30 AM [facility] Calcium 9.1 8.5 - 10.5 mg/dL LAB CHEMISTRY METHOD 01/28/2024 8:30 AM [facility] AST (SGOT) 25 10 - 42 unit/L LAB CHEMISTRY METHOD 01/28/2024 8:30 AM [facility] ALT (SGPT) 30 10 - 60 unit/L LAB CHEMISTRY METHOD 01/28/2024 8:30 AM EST [facility] Alkaline Phosphatase 67 42 - 121 unit/L LAB CHEMISTRY METHOD 01/28/2024 8:30 AM EST [facility] Total Protein 6.6 6.0 - 8.0 g/dL LAB CHEMISTRY METHOD 01/28/2024 8:30 AM [facility] Albumin 3.2 3.2 - 5.0 g/dL LAB CHEMISTRY METHOD 01/28/2024 8:30 AM [facility] Total Bilirubin 0.7 0.0 - 1.4 mg/dL LAB CHEMISTRY METHOD 01/28/2024 8:30 AM [facility] Blood Venous blood specimen / Unknown 01/28/2024 6:33 AM EST 01/28/2024 7:54 AM EST us Kaleb Ko MD LAB BLOOD ORDERABLES Final Resul t [facility] [address] [place] [address], documented in this encounter Visit Diagnoses Diagnosis Weakness Other malaise and fatigue documented in this encounter Care Teams Supervisor Metal Hanging Relationship Specialty Start Date End Date Kaleb Ko MD [address] [place] [address] [address] [place] PCP - General Internal Medicine 03/24/24 documented as of this encounter
--- OUTSIDE RECORDS SUMMARY | 2024-12-21 16:02 | XMS_ITS | Encounter Summary ---
Author Organization [facility] Address [address] [place] [address] Care Team Providers Care Pastor Name Role Phone Kaleb Ko MD Primary Care Provider [phone] Encounter Details Date Type Department Care Team (Late st Contact Info) Description 03/06/2024 Lab Requisition [facility] - Main Lab 299 [facility] [place] [phone] Kaleb Ko MD [address] [place] [address] Dr [address] [place], [place] Hemiplegia and hemiparesis following nontraumatic intracerebral [...] PANEL WITH REFLEX TO DIRECT LDL Routine 03/06/2024 6:45 AM EST Hemiplegia and hemiparesis following nontraumatic intracerebral hemorrhage affecting left non-dominant side (CMS/HCC) CBC WITH AUTO DIFFERENTIAL Routine 03/06/2024 6:45 AM EST Hemiplegia and hemiparesis following nontraumatic intracerebral hemorrhage affecting left non-dominant side (CMS/HCC) VITAMIN D 25 HYDROXY Routine 03/06/2024 6:45 AM EST Hemiplegia and hemiparesis following nontraumatic intracerebral hemorrhage affecting left non-dominant side (CMS/HCC) CBC AND DIFFERENTIAL Routine 03/06/2024 6:45 AM EST Hemiplegia and hemiparesis following nontraumatic intracerebral hemorrhage affecting left non-dominant side (CMS/HCC) COMPREHENSIVE METABOLIC PANEL Routine 03/06/2024 6:45 AM EST Hemiplegia and hemiparesis following nontraumatic intracerebral hemorrhage affecting left non-dominant side (CMS/HCC) documented in this encounter Results * CBC auto differential (03/06/2024 6:45 AM EST) [facility] WBC 5.4 4.8 - 10.8 K/mcL LAB HEMETOLOGY METHOD 03/06/2024 8:[address] [facility] RBC 4.30 3.80 - 4.80 M/mcL LAB HEMETOLOGY METHOD 03/06/2024 8:[address] [facility] Hemoglobin 12.9 11.5 - 16.0 g/dL LAB HEMETOLOGY METHOD 03/06/2024 8:[address] [facility] Hematocrit 38.0 35.0 - 47.0 % LAB HEMETOLOGY METHOD 03/06/2024 8:[address] [facility] MCV 88.2 79.0 - 98.0 FL LAB HEMETOLOGY METHOD 03/06/2024 8:[address] [facility] MCH 29.9 27.0 - 32.0 pcg LAB HEMETOLOGY METHOD 03/06/2024 8:[address] [facility] MCHC 33.9 32.0 - 37.0 g/dL LAB HEMETOLOGY METHOD 03/06/2024 8:[address] [facility] RDW 12.2 11.0 - 15.0 % LAB HEMETOLOGY METHOD 03/06/2024 8:[address] [facility] Platelets 199 130 - 400 K/mcL LAB HEMETOLOGY METHOD 03/06/2024 8:[address] [facility] MPV 10.4 7.0 - 11.0 FL LAB HEMETOLOGY METHOD 03/06/2024 8:[address] [facility] NRBC 0.0 <1.0 % LAB HEMETOLOGY METHOD 03/06/2024 8:[address] [facility] NRBC Absolute 0.00 <0.10 K/mcL LAB HEMETOLOGY METHOD 03/06/2024 8:[address] [facility] Neutrophils Relative 40.0 % LAB HEMETOLOGY METHOD 03/06/2024 8:[address] [facility] Lymphocytes Relative 47.3 % LAB HEMETOLOGY METHOD 03/06/2024 8:[address] [facility] Monocytes Relative 8.3 % LAB HEMETOLOGY METHOD 03/06/2024 8:[address] [facility] Eosinophils Relative 3.3 % LAB HEMETOLOGY METHOD 03/06/2024 8:[address] [facility] Basophils Relative 0.9 % LAB HEMETOLOGY METHOD 03/06/2024 8:[address] [facility] Immature Granulocytes Relative 0.2 % LAB HEMETOLOGY METHOD 03/06/2024 8:[address] [facility] Neutrophils Absolute 2.17 1.50 - 7.00 K/mcL LAB HEMETOLOGY METHOD 03/06/2024 8:[address] [facility] Lymphocytes Absolute 2.57 1.00 - 5.00 K/mcL LAB HEMETOLOGY METHOD 03/06/2024 8:[address] [facility] Monocytes Absolute 0.45 0.20 - 1.00 K/mcL LAB HEMETOLOGY METHOD 03/06/2024 8:[address] [facility] Eosinophils Absolute 0.18 0.00 - 0.50 K/mcL LAB HEMETOLOGY METHOD 03/06/2024 8:[address] [facility] Basophils Absolute 0.05 0.00 - 0.20 K/mcL LAB HEMETOLOGY METHOD 03/06/2024 8:02 AM EST [facility] Immature Granulocytes Absolute 0.01 0.00 - 0.03 K/[facility] LAB HEMETOLOGY METHOD 03/06/2024 8:[address] [facility] Blood Venous blood specimen / Unknown 03/06/2024 6:45 AM EST 03/06/2024 7:42 AM EST us Kaleb Ko MD LAB BLOOD ORDERABLES Final Resul t Performing Organization Address City/[facility]/ZIP Co de Phone Number [facility] [address] [place] [address], [place] [phone] * Vitamin D 25 hydroxy (03/06/2024 6:45 AM EST) Vit D, 25-Hydroxy 31.5 30.0 - 80.0 ng/mL LAB CHEMISTRY METHOD 03/06/2024 9:[address] [facility] Blood Venous blood specimen / Unknown 03/06/2024 6:45 AM EST 03/06/2024 7:42 AM EST us Kaleb Ko MD LAB BLOOD ORDERABLES Final Resul t Performing Organization Address City/[facility]/ZIP Co de Phone Number [facility] [address] [place] [address], [place] [phone] * Lipid panel with reflex to direct LDL (03/06/2024 6:45 AM EST) Cholesterol 167 0 - 200 mg/dL LAB CHEMISTRY METHOD 03/06/2024 8:[address] [facility] Triglycerides 105 0 - 150 mg/dL LAB CHEMISTRY METHOD 03/06/2024 8:26 AM EST [facility] HDL 46 >=40 mg/dL LAB CHEMISTRY METHOD 03/06/2024 8:26 AM EST [facility] LDL Calculated 100 0 - 100 mg/dL LAB CHEMISTRY METHOD 03/06/2024 8:[address] [facility] VLDL Cholesterol Luis 21 mg/dL LAB CHEMISTRY METHOD 03/06/2024 8:[address] [facility] Non HDL Chol. (LDL+VLDL) 121 <145 mg/dL LAB CHEMISTRY METHOD 03/06/2024 8:[address] [facility] Chol/HDL Ratio 3.6 0.0 - 4.4 LAB CHEMISTRY METHOD 03/06/2024 8:[address] [facility] Blood Venous blood specimen / Unknown 03/06/2024 6:45 AM EST 03/06/2024 7:42 AM EST us Kaleb Ko MD LAB BLOOD ORDERABLES Final Resul t [facility] [address] [place] [address], * (ABNORMAL) Comprehensive metabolic panel (03/06/2024 6:45 AM EST) Sodium 140 133 - 145 mmol/L LAB CHEMISTRY METHOD 03/06/2024 8:[address] [facility] Potassium 3.8 3.5 - 5.5 mmol/L LAB CHEMISTRY METHOD 03/06/2024 8:[address] [facility] Chloride 108 96 - 110 mmol/L LAB CHEMISTRY METHOD 03/06/2024 8:[address] [facility] CO2 27 21 - 32 mmol/L LAB CHEMISTRY METHOD 03/06/2024 8:[address] [facility] Anion Gap 5 3 - 11 LAB CHEMISTRY METHOD 03/06/2024 8:[address] [facility] Glucose 117(H) 70 - 100 mg/dL LAB CHEMISTRY METHOD 03/06/2024 8:[address] [facility] BUN 16 5 - 25 mg/dL LAB CHEMISTRY METHOD 03/06/2024 8:[address] [facility] Creatinine 0.69 0.50 - 1.10 mg/dL LAB CHEMISTRY METHOD 03/06/2024 8:[address] [facility] eGFR 98 >=60 mL/min/1. 73m2 LAB CHEMISTRY METHOD 03/06/2024 8:[address] [facility] Comment:Calculation based on the Chronic Kidney Disease Epidemiology Collaboration (CKD-EPI) equation refit without adjustment for race. BUN/Creatinine Ratio 23.2 LAB CHEMISTRY METHOD 03/06/2024 8:[address] [facility] Calcium 9.0 8.5 - 10.5 mg/dL LAB CHEMISTRY METHOD 03/06/2024 8:[address] [facility] AST (SGOT) 14 10 - 42 unit/L LAB CHEMISTRY METHOD 03/06/2024 8:[address] [facility] ALT (SGPT) 13 10 - 60 unit/L LAB CHEMISTRY METHOD 03/06/2024 8:[address] [facility] Alkaline Phosphatase 59 42 - 121 unit/L LAB CHEMISTRY METHOD 03/06/2024 8:[address] [facility] Total Protein 6.7 6.0 - 8.0 g/dL LAB CHEMISTRY METHOD 03/06/2024 8:[address] [facility] Albumin 3.3 3.2 - 5.0 g/dL LAB CHEMISTRY METHOD 03/06/2024 8:[address] [facility] Total Bilirubin 0.4 0.0 - 1.4 mg/dL LAB CHEMISTRY METHOD 03/06/2024 8:[address] [facility] Blood Venous blood specimen / Unknown 03/06/2024 6:45 AM EST 03/06/2024 7:42 AM EST us Kaleb Ko MD LAB BLOOD ORDERABLES Final Resul t [facility] [address] [place] [address], documented in this encounter Visit Diagnoses Diagnosis Hemiplegia and hemiparesis following nontraumatic intracerebral hemorrhage affecting left non-dominant side (CMS/HCC V24, CMS/HCC V28) documented in this encounter Care Teams Pastor Relationship Specialty Start Date End Date Kaleb Ko MD [address] [place], [place] PCP - General Internal Medicine 03/24/24 documented as of this encounter
--- OUTSIDE RECORDS SUMMARY | 2024-12-21 16:02 | XMS_ITS | Encounter Summary ---
Author Organization [facility] Address [address] [place] [address] Care Team Providers Care Audit Machine Operator Name Role Phone Kaleb Ko MD Primary Care Provider [phone] Encounter Details Date Type Department Care Team (Late st Contact Info) Description 06/14/2024 Lab Requisition [facility] - Main Lab 299 [facility] [place] [phone] Kaleb Ko MD [address] [place] [address] Dr [address] [place], [place] Other abnormal findings in urine Social History Tobacco Use Types Packs/Day Years [...] Associated Diagnosis Comments URINALYSIS WITH REFLEX MICROSCOPIC AND CULTURE Routine 06/14/2024 9:00 AM EDT Other abnormal findings in urine LANDA URINE CULTURE TUBE Routine 06/14/2024 9:00 AM EDT Other abnormal findings in urine URINALYSIS WITH REFLEX MICROSCOPIC AND CULTURE Routine 06/14/2024 9:00 AM EDT Other abnormal findings in urine CULTURE URINE Routine 06/14/2024 9:00 AM EDT Other abnormal findings in urine documented in this encounter Results * (ABNORMAL) Culture urine (06/14/2024 9:00 AM EDT) Culture, Urine >100,000 CFU/mL Aerococcus urinae(A) LIZ 06/16/2024 11:23 AM EDT [facility] Comment: Susceptibility testing not routinely performed. If further therapeutic information is required, please consult an infectious disease specialist. This is an edited result. Previous organism was Streptococcus alpha-hemolytic on 06/15/2024 at 1019 EDT. Urine Urine specimen obtained by clean catch procedure / Unknown 06/14/2024 9:00 AM EDT 06/14/2024 11:08 AM EDT us Kaleb Ko MD LAB MICROBIOLOGY - GENERAL ORDER GEE Final Result Performing Organization Address [facility]/ZIP Co de Phone Number [facility] [address] [place] [address], [place] [phone] * Landa urine culture tube (06/14/2024 9:00 AM EDT) Pathologist [facility] Extra Tube Hold for add-ons. 06/14/2024 12:01 PM EDT [facility] Comment:Auto resulted. Urine Urine specimen obtained by clean catch procedure / Unknown 06/14/2024 9:00 AM EDT 06/14/2024 10:25 AM EDT us Kaleb Ko MD LAB URINE ORDERABLES Final Resul t Performing Organization Address [facility] Co de Phone Number [facility] [address] [place] [address], [place] [phone] * (ABNORMAL) Urinalysis with reflex microscopic and culture (06/14/2024 9:00 AM EDT) Specific [place] Urine 1.027 1.003 - 1.030 LAB URINALYSIS - AUTOMATED METHOD 06/14/2024 11:08 AM EDT [facility] pH, Urine 6.0 5.0 - 8.0 pH LAB URINALYSIS - AUTOMATED METHOD 06/14/2024 11:08 AM EDT [facility] Leukocytes, Urine Moderate(A) Negative LAB URINALYSIS - AUTOMATED METHOD 06/14/2024 11:08 AM [facility] Nitrite, Urine Negative Negative LAB URINALYSIS - AUTOMATED METHOD 06/14/2024 11:08 AM [facility] Protein, Urine 30(A) <=Trace mg/dL LAB URINALYSIS - AUTOMATED METHOD 06/14/2024 11:08 AM [facility] Glucose, Urine Negative Negative mg/dL LAB URINALYSIS - AUTOMATED METHOD 06/14/2024 11:08 AM [facility] Ketones, Urine Trace(A) Negative mg/dL LAB URINALYSIS - AUTOMATED METHOD 06/14/2024 11:08 AM [facility] Urobilinogen , Urine 1.0 0.2 - 1.0 mg/dL LAB URINALYSIS - AUTOMATED METHOD 06/14/2024 11:08 AM [facility] Bilirubin, Urine Negative Negative LAB URINALYSIS - AUTOMATED METHOD 06/14/2024 11:08 AM [facility] Blood, Urine Negative Negative LAB URINALYSIS - AUTOMATED METHOD 06/14/2024 11:08 AM [facility] RBC, Urine 1.6 0 - 4 /HPF LAB URINALYSIS - AUTOMATED METHOD 06/14/2024 11:08 AM [facility] WBC, Urine 38.0(H) 0 - 4 /HPF LAB URINALYSIS - AUTOMATED METHOD 06/14/2024 11:08 AM [facility] Squamous Epithelial, Urine 24 0 - 60 /LPF LAB URINALYSIS - AUTOMATED METHOD 06/14/2024 11:08 AM [facility] Bacteria, Urine Many(A) Negative /HPF LAB URINALYSIS - AUTOMATED METHOD 06/14/2024 11:08 AM [facility] Hyaline Casts, Urine 6.0(H) 0 - 3 /LPF LAB URINALYSIS - AUTOMATED METHOD 06/14/2024 11:08 AM EDT [facility] Urine Urine specimen obtained by clean catch procedure / Unknown 06/14/2024 9:00 AM EDT 06/14/2024 10:23 AM EDT us Kaleb Ko MD LAB URINE ORDERABLES Final Resul t [facility] [address] [place] [address], documented in this encounter Visit Diagnoses Diagnosis Other abnormal findings in urine documented in this encounter Care Teams Audit Machine Operator Relationship Specialty Start Date End Date Kaleb Ko MD [address] [place] [address] Dr [address] [place], [place] PCP - General Internal Medicine 03/24/24 documented as of this encounter
--- OUTSIDE RECORDS SUMMARY | 2024-12-21 16:02 | XMS_ITS | Encounter Summary ---
Author Organization [facility] Address [address] [place] [address] Care Team Providers Care Esthetician/Skin Therapist Name Role Phone Kaleb Ko MD Primary Care Provider [phone] Encounter Details Date Type Department Care Team (Late st Contact Info) Description 11/17/2024 Lab Requisition [facility] - Main Lab 299 [facility] [place] [phone] Kaleb Ko MD [address] [place] [address] [address] [place], [place] Hemiplegia and hemiparesis following nontraumatic intracerebral [...] Date/Time Associated Diagnosis Comments GABAPENTIN LEVEL Routine 11/17/2024 6:48 AM EDT Hemiplegia and hemiparesis following nontraumatic intracerebral hemorrhage affecting left non-dominant side (CMS/HCC V24, CMS/HCC V28) HEMOGLOBIN A1C Routine 11/17/2024 6:48 AM EDT Hemiplegia and hemiparesis following nontraumatic intracerebral hemorrhage affecting left non-dominant side (CMS/HCC V24, CMS/HCC V28) documented in this encounter Results * Hemoglobin A1c (11/17/2024 6:48 AM EDT) Hemoglobin A1C 5.9 <6.5 % LAB CHEMISTRY METHOD 11/17/2024 1:28 PM EDT [facility] Mean Bld Glu Estim. 123 mg/dL LAB CHEMISTRY METHOD 11/17/2024 1:28 PM EDT [facility] Blood Venous blood specimen / Unknown 11/17/2024 6:48 AM EDT 11/17/2024 7:15 AM EDT us Kaleb Ko MD LAB BLOOD ORDERABLES Final Resul t Performing Organization Address [facility] Co de Phone Number [facility] [address] [place] [address], [place] [phone] * Gabapentin level (11/17/2024 6:48 AM EDT) Gabapentin 9.2 2.0 - 12.0 ug/mL 11/20/2024 8:34 AM EDT [facility] Comment: If applicable, any drug confirmation testing reported here was developed and the performance characteristics determined by [facility]. This confirmation testing has not been cleared or approved by the FDA. The laboratory is regulated under CLIA as qualified to perform high-complexity testing. This test is used for patient testing purposes. It should not be regarded as investigational or for research. Test performed at [facility], [address] , [place] [address] Smitha Mesa MD, PhD - Petroleum Engineer Blood Venous blood specimen / Unknown 11/17/2024 6:48 AM EDT 11/17/2024 7:15 AM EDT us Kaleb Ko MD LAB BLOOD ORDERABLES Final Resul t Performing Organization Address City/[facility]/ZIP Co de Phone Number [facility] [address] [place], [place] [id number] documented in this encounter Visit Diagnoses Diagnosis Hemiplegia and hemiparesis following nontraumatic intracerebral hemorrhage affecting left non-dominant side (CMS/HCC V24, CMS/HCC V28) documented in this encounter Care Teams Esthetician/Skin Therapist Relationship Specialty Start Date End Date Kaleb Ko MD [address] [place] [address] Dr [address] MARK Garcia PCP - General Internal Medicine 03/24/24 documented as of this encounter
--- OUTSIDE RECORDS SUMMARY | 2024-12-21 16:02 | XMS_ITS | Encounter Summary ---
Author Organization [facility] Address [address] [place] [address] Care Team Providers Care Manager Care Name Role Phone Kaleb Ko MD Primary Care Provider [phone] Encounter Details Date Type Department Care Team (Late st Contact Info) Description 05/18/2024 Lab Requisition [facility] - Main Lab [address] [facility] [place] [phone] Kaleb Ko MD [address] [place] [address] [address] [place], [place] Hemiplegia and hemiparesis following nontraumatic intracerebral [...] Date/Time Associated Diagnosis Comments GABAPENTIN LEVEL Routine 05/18/2024 6:43 AM EDT Hemiplegia and hemiparesis following nontraumatic intracerebral hemorrhage affecting left non-dominant side (CMS/HCC) HEMOGLOBIN A1C Routine 05/18/2024 6:43 AM EDT Hemiplegia and hemiparesis following nontraumatic intracerebral hemorrhage affecting left non-dominant side (CMS/HCC) GLUCOSE, RANDOM Routine 05/18/2024 6:43 AM EDT Hemiplegia and hemiparesis following nontraumatic intracerebral hemorrhage affecting left non-dominant side (CMS/HCC) HEPATIC FUNCTION PANEL Routine 05/18/2024 6:43 AM EDT Hemiplegia and hemiparesis following nontraumatic intracerebral hemorrhage affecting left non-dominant side (CMS/HCC) documented in this encounter Results * Gabapentin level (05/18/2024 6:43 AM EDT) Gabapentin 3.3 2.0 - 12.0 ug/mL 05/22/2024 5:37 AM EDT [facility] Comment: If applicable, any drug confirmation testing reported here was developed and the performance characteristics determined by [facility]. This confirmation testing has not been cleared or approved by the FDA. The laboratory is regulated under CLIA as qualified to perform high-complexity testing. This test is used for patient testing purposes. It should not be regarded as investigational or for research. Test performed at [facility], [address] , [place] [address] Smitha Mesa MD, PhD - [employer] Blood Venous blood specimen / Unknown 05/18/2024 6:43 AM EDT 05/18/2024 7:34 AM EDT us Kaleb Ko MD LAB BLOOD ORDERABLES Final Resul t [facility] [address] [place] [address] * Hemoglobin A1c (05/18/2024 6:43 AM EDT) Pathologist [facility] Hemoglobin A1C 5.9 <6.5 % LAB CHEMISTRY METHOD 05/18/2024 11:[address] [facility] Mean Bld Glu Estim. 123 mg/dL LAB CHEMISTRY METHOD 05/18/2024 11:[address] [facility] Blood Venous blood specimen / Unknown 05/18/2024 6:43 AM EDT 05/18/2024 7:34 AM EDT us Kaleb Ko MD LAB BLOOD ORDERABLES Final Resul t [facility] [address] [place] [address], [place] [phone] * (ABNORMAL) Glucose, random (05/18/2024 6:43 AM EDT) Pathologist [facility] Glucose 113(H) 70 - 100 mg/dL LAB CHEMISTRY METHOD 05/18/2024 8:[address] [facility] Blood Venous blood specimen / Unknown 05/18/2024 6:43 AM EDT 05/18/2024 7:34 AM EDT Kaleb Ko MD LAB BLOOD ORDERABLES Final Resul t [facility] [address] [place] [address], [place] [phone] * Hepatic function panel (05/18/2024 6:43 AM EDT) [facility] Total Protein 6.7 6.0 - 8.0 g/dL LAB CHEMISTRY METHOD 05/18/2024 8:[address] [facility] Albumin 3.2 3.2 - 5.0 g/dL LAB CHEMISTRY METHOD 05/18/2024 8:[address] [facility] Total Bilirubin 0.3 0.0 - 1.4 mg/dL LAB CHEMISTRY METHOD 05/18/2024 8:[address] [facility] Bilirubin, Direct 0.1 0.0 - 0.3 mg/dL LAB CHEMISTRY METHOD 05/18/2024 8:[address] [facility] Bilirubin, Indirect 0.2 0.0 - 1.1 mg/dL LAB CHEMISTRY METHOD 05/18/2024 8:[address] [facility] ALT (SGPT) 12 10 - 60 unit/L LAB CHEMISTRY METHOD 05/18/2024 8:[address] [facility] AST (SGOT) 10 10 - 42 unit/L LAB CHEMISTRY METHOD 05/18/2024 8:[address] [facility] Alkaline Phosphatase 74 42 - 121 unit/L LAB CHEMISTRY METHOD 05/18/2024 8:[address] [facility] Blood Venous blood specimen / Unknown 05/18/2024 6:43 AM EDT 05/18/2024 7:34 AM EDT us Kaleb Ko MD LAB BLOOD ORDERABLES Final Resul t [facility] [address] [place] [address], documented in this encounter Visit Diagnoses Diagnosis Hemiplegia and hemiparesis following nontraumatic intracerebral hemorrhage affecting left non-dominant side (CMS/HCC V24, CMS/HCC V28) documented in this encounter Care Teams Manager Care Relationship Specialty Start Date End Date Kaleb Ko MD [address] [place] [address] Dr [address] [place], [place] PCP - General Internal Medicine 03/24/24 documented as of this encounter
== END 2024-12-21 13:49 | disposition home or self-care (01) ==
LOC: HO.HGI 12:51
PROVIDERS: PCP Hospitalist; Visit Provider Nurse Practitioner Family
DX: Z01.818 Encounter for other preprocedural examination (principal); Z12.11 Encounter for screening for malignant neoplasm of colon; K21.9 Gastro-esophageal reflux disease without esophagitis; K64.9 Unspecified hemorrhoids
CPT/HCPCS: 99204

== ENCOUNTER → 2024-12-21 12:51 | Outpatient (BNVA) | payer MEDICAID, SELFPAY | PROVIDERS: PCP Hospitalist; Visit Provider Nurse Practitioner Family | DX: Z01.818 Encounter for other preprocedural examination (principal); K21.9 Gastro-esophageal reflux disease without esophagitis; K64.9 Unspecified hemorrhoids | CPT/HCPCS: 99202 ==

== ENCOUNTER 2025-01-01 10:24 | Outpatient (AMB) | payer MEDICAID, SELFPAY ==
--- NOTE | 2025-01-01 10:27 | MHC.OFFVIS ---
Intake Visit Reasons: 1y/PVR Intake Note: Patient is present for 1Y/PVR Urology Medication:MIRABEGRON Antibiotic Allergy:ERYTHROMYCIN Blood Thinner:ASPIRIN TODAY'S PVR:0ML'S Orthopedic Shoe Maker Required: No Allergies Erythromycin Allergy (Mild, Uncoded 01/01/25 11:06) Vomiting Medication List - Last Reconciled 01/01/25 by BRENT Huertas-KAROLYN acetaminophen 650 mg PO Q4H PRN aspirin (Adult Low Dose Aspirin) 81 mg PO DAILY obaagcs-lgvnfvbfnhdxw-mbukolhw 250-250-65 mg (Excedrin Migraine) 1 tab PO Q4-6H PRN atorvastatin (Lipitor) 20 mg PO DAILY benztropine 1 mg PO BID bisacodyl 5 mg PO BEDTIME bisacodyl 20 mg (4 x 5 mg) PO ONCE itptaevgpe-rzznsqhdwimed-utss 50-325-40 mg 1 tab PO Q4H PRN calcium carbonate (Antacid (calcium carbonate)) 430 mg PO QID ergocalciferol (vitamin D2) (Vitamin D2) 1,250 mcg PO DAILY famotidine 40 mg PO BEDTIME gabapentin 300 mg PO DAILY hydroxyzine HCl 25 mg PO TID PRN lidocaine HCl 4% (Aspercreme (lidocaine HCl)) 1 appl topical TID PRN loperamide 2 mg PO Q6H PRN loratadine 10 mg PO DAILY mirtazapine 7.5 mg PO DAILY omeprazole 40 mg PO DAILY polyethylene glycol 3350 (Miralax) 238 grams PO ONCE risperidone (Risperdal) 0.5 mg PO BID vibegron (Gemtesa) 75 mg PO DAILY 30 days HPI Comments Details: Anabela is a pleasant 64-year-old female patient of Dr. Ko and is accompanied by a staff member from the facility she resides at a [facility]. She has a past medical history of legally blind, nephrolithiasis, overactive bladder, hyperlipidemia, bipolar disorder, depression, tension headaches, paralytic mitosis of bilateral eyelids, strabismus, GERD, dysarthria, anarthria, chronic pain, and bilateral optic atrophy. She presents to the office today for follow-up of her overactive bladder and nephrolithiasis. In discussion with the patient today she reports to be doing and feeling well. When asked patient reports compliance with Myrbetriq 50 mg daily. She reports despite compliance with Myrbetriq she does continue to experience episodes of urinary frequency as well as nocturia up to 5 times per night. Unable to obtain urine for urinalysis today as patient unable to void however PVR 0 mL. Previous workup has included a retroperitoneal ultrasound 06/21 noting right kidney with no lesions or hydronephrosis. There is an echogenic nonobstructive stone in the mid pole measuring 2 mm. Left kidney with no stones, lesions, and or hydronephrosis. The bladder is well distended and normal. Bilateral ureteral jets are demonstrated. Pre void bladder volume is 253 mL. Postvoid bladder volume is 62.1 mL. When asked she denies any UTI like symptoms. She denies urinary incontinence, hematuria, dysuria, foul smelling urine, changes to urinary stream, flank pain, fever, and or chills. We did discussed obtaining bladder diary for further assessment evaluation as well as repeat imaging. We did discuss bladder triggers and irritants as well as the importance of limiting fluids 2-3 hours prior to bed to decrease episodes of nocturia. All questions were answered. She otherwise offers no other issues or concerns at this time. FOR[facility]LY [facility] Medical History Hemorrhoids Colon cancer screening Presbyopia Overactive bladder Dysarthria Exotropia GERD (gastroesophageal reflux disease) Hyperlipidemia Legal blindness Major depressive disorder Bipolar 1 disorder Hemiplegia Family History Father Colon cancer Social History (Updated 12/21/24 @ 13:17 by Essence Suárez) Alcohol intake: current Alcohol intake frequency: holidays/special occasions only Patient Tobacco Use Status: Former Tobacco user Substance Use Type: Marijuana Review of Systems Const Reports as per HPI Eyes Reports as per HPI ENT Reports no additional complaints Card Reports as per HPI Resp Reports no additional complaints GI Reports as per HPI Reports as per HPI Musc Reports as per HPI Neuro Reports as per HPI Psych Reports as per HPI Endo Reports no additional complaints Billy/Lymph Reports no additional complaints Aller/Immun Reports no additional complaints Physical Exam Const General: cooperative, comfortable, no acute distress and well developed Orientation/consciousness: oriented to person Limitations: wheelchair HEENT Head: Yes normal to inspection Neck Neck: Yes normal visual inspection Chest Chest palpation & inspection: normal inspection of the chest Resp Effort & Inspection: normal respiratory effort Cardio Rate: regular rate GI Inspection: Yes normal to inspection General: Yes no CVA tenderness Back/Spine/Pelvis Back: no CVA tenderness Neuro General: oriented to person Extrem General: Yes normal to inspection Psych Appearance: well kempt Attitude: cooperative Insight: Fair insight present (Psych) Judgement: Fair judgement present (Psych) Office Procedures Post Void Residual Post Residual Void Post Void Residual (PVR): 0 66771-Bkdo Void Residual by ultrasound Assessment & Plan Assessment & Plan (1) Nephrolithiasis: Code(s): N20.0 - Calculus of kidney Category: Medical (2) Overactive bladder: Code(s): N32.81 - Overactive bladder Category: Medical Plan Unable to obtain urine for urinalysis today as patient unable to void however PVR 0 mL. We did discussed the importance of limiting fluids 2-3 hours prior to bed to decrease episodes of nocturia. We also discussed obtaining bladder diary for further assessment evaluation. Will obtain retroperitoneal ultrasound for further assessment evaluation. Stop Myrbetriq. Start Gemtesa as discussed and prescribed. We did discussed potential near future in office urodynamics and or cystoscopy for further assessment evaluation. All questions were answered. Follow-up in 1-3 months with imaging and PVR; or sooner with any issues, concerns, and or questions. Orders: Orders US retroperitoneal comp Today N20.0 - Calculus of kidney, N32.81 - Overactive bladder Medications: New vibegron (Gemtesa) 75 mg PO DAILY 30 tabs 3RF 30 days N32.81 - Overactive bladder Patient Instructions: The patient had an opportunity to ask questions regarding the treatment plan. All questions were answered. Physical exam, labs, and imaging were discussed and reviewed in detail. As well as risks, benefits, and discussion of treatment choices. No major barriers to understanding were identified. The patient expressed understanding and agreement with the above treatment plan. The patient was made aware they should contact our office by phone for worsening of their current condition, the appearance of new symptoms, or with any questions or concerns. Compliance is encouraged with any medications and follow up testing that is ordered. It is a privilege to be allowed the opportunity to participate in? your urological care.? Again, if you have any questions or concerns If you have any questions or concerns please do not hesitate to contact me. The office is [phone]. This note is constructed using voice recognition software. While every effort has been made to ensure accuracy color receiver errors may have been included. Yours sincerely, BRENT Huertas- Coding Level of Care Code Est Pt Level 4 (32649) Complex EM visit Add On G2211 Diagnoses Nephrolithiasis N20.0 Overactive bladder N32.81 CPT Codes Post Residual Void - PVR CPT Code: 07091-Cbmt Void Residual by ultrasound ([id number])
--- OUTSIDE RECORDS SUMMARY | 2025-01-01 12:28 | XMS_ITS | Encounter Summary ---
Author Organization [facility] Address [address] [place] [address] Care Team Providers Care Internal Audit Director Name Role Phone Kaleb Ko MD Primary Care Provider [phone] Encounter Details Date Type Department Care Team (Late st Contact Info) Description 09/15/2024 Lab Requisition [facility] - Main Lab [address] [place] [phone] Kaleb Ko MD [address] [place] [address] Dr [address] [place], [place] Vitamin deficiency, unspecified Social History Tobacco [...] LAB CHEMISTRY METHOD 09/15/2024 9:42 AM EDT [facility] ([facility] Blood Venous blood specimen / Unknown 09/15/2024 6:46 AM EDT 09/15/2024 7:28 AM EDT us Kaleb Ko MD LAB BLOOD ORDERABLES Final Resul t [facility] LAB [address] [place] [address], documented in this encounter Visit Diagnoses Diagnosis Vitamin deficiency, unspecified documented in this encounter Care Teams Internal Audit Director Relationship Specialty Start Date End Date Kaleb Ko MD [address] [place] [address] Dr [address] [place], [place] PCP - General Internal Medicine 03/24/24 documented as of this encounter
--- OUTSIDE RECORDS SUMMARY | 2025-01-01 12:28 | XMS_ITS | Encounter Summary ---
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 (CMS/[facility] V24, [facility] V28) Social History Tobacco Use [...] hemorrhage affecting left non-dominant side (CMS/HCC V24, CMS/[facility] V28) documented in this encounter Results * Vitamin D 25 hydroxy (06/23/2024 6:10 AM EDT) Vit D, 25-Hydroxy 31.4 30.0 - 80.0 ng/mL LAB CHEMISTRY METHOD 06/23/2024 11:05 AM EDT [facility] ([facility]) [facility] Blood Venous blood specimen / Unknown 06/23/2024 6:10 AM EDT 06/23/2024 6:45 AM EDT us Kaleb Ko MD LAB BLOOD ORDERABLES Final Resul t [facility] ([facility]) [facility] [address] [place] [address], documented in this encounter Visit Diagnoses Diagnosis 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
--- OUTSIDE RECORDS SUMMARY | 2025-01-01 12:28 | XMS_ITS | Encounter Summary ---
Author Organization [facility] Address [address] [place] [address] Care Team Providers Care Transport Analyst Name Role Phone Kaleb Ko MD Primary Care Provider [phone] Encounter Details Date Type Department Care Team (Late st Contact Info) Description 08/18/2024 Lab Requisition [facility] - Main Lab [address] [facility] [place] [phone] Kaleb Ko MD [address] [place] [address] [address] [place], [place] Encounter for therapeutic drug level monitoring; [...] Hold for add-ons. 08/21/2024 10:01 AM EDT [facility] Comment:Auto resulted. Blood Venous blood specimen / Unknown 08/18/2024 7:05 AM EDT 08/18/2024 7:57 AM EDT us Kaleb Ko MD LAB BLOOD ORDERABLES Final Resul t Performing Organization Address [facility]/ZIP Co de Phone Number [facility] [address] [place] [address], [place] [phone] * Hemoglobin A1c (08/18/2024 7:05 AM EDT) Hemoglobin A1C 5.8 <6.5 % LAB CHEMISTRY METHOD 08/18/2024 12:34 PM EDT [facility] Mean Bld Glu Estim. 120 mg/dL LAB CHEMISTRY METHOD 08/18/2024 12:34 PM EDT [facility] Blood Venous blood specimen / Unknown 08/18/2024 7:05 AM EDT 08/18/2024 7:57 AM EDT us Kaleb Ko MD LAB BLOOD ORDERABLES Final Resul t Performing Organization Address [facility] de Phone Number [facility] [address] [place] [address], [place] [phone] * Gabapentin level (08/18/2024 7:05 AM EDT) Gabapentin 5.9 2.0 - 12.0 ug/mL 08/21/2024 6:51 AM EDT [facility] Comment: If applicable, any drug confirmation testing reported here was developed and the performance characteristics determined by [facility]. This confirmation testing has not been cleared or approved by the FDA. The laboratory is regulated under CLIA as qualified to perform high-complexity testing. This test is used for patient testing purposes. It should not be regarded as investigational or for research. Test performed at [facility], [address] , [place] [address] Smitha Mesa MD, PhD - Pit Recorder Blood Venous blood specimen / Unknown 08/18/2024 7:05 AM EDT 08/18/2024 7:57 AM EDT us Kaleb Ko MD LAB BLOOD ORDERABLES Final Resul t [facility] [address] [place] [address] documented in this encounter Visit Diagnoses Diagnosis Encounter for therapeutic drug level monitoring Encounter for other specified special examinations Other chronic pain documented in this encounter Care Teams Transport Analyst Relationship Specialty Start Date End Date Kaleb Ko MD [address] [place] [address] [address] MARK Garcia PCP - General Internal Medicine 03/24/24 documented as of this encounter
--- OUTSIDE RECORDS SUMMARY | 2025-01-01 12:28 | XMS_ITS | Encounter Summary ---
Author Organization [facility] Address [address] [place] [address] Care Team Providers Care Director Of Adult Epilepsy Name Role Phone Kaleb Ko MD Primary Care Provider [phone] Encounter Details Date Type Department Care Team (Late st Contact Info) Description 09/04/2024 Lab Requisition [facility] - Main Lab [address] [facility] [place] [phone] Kaleb Ko MD [address] [place] [address] [address] [place], [place] Hemiplegia and hemiparesis following nontraumatic intracerebral [...] Complete blood count (09/04/2024 6:49 AM EDT) [facility] WBC 6.3 4.8 - 10.8 K/mcL LAB HEMETOLOGY METHOD 09/04/2024 8:35 AM EDT [facility] RBC 4.30 3.80 - 4.80 M/mcL LAB HEMETOLOGY METHOD 09/04/2024 8:35 AM [facility] Hemoglobin 12.3 11.5 - 16.0 g/dL LAB HEMETOLOGY METHOD 09/04/2024 8:35 AM [facility] Hematocrit 37.8 35.0 - 47.0 % LAB HEMETOLOGY METHOD 09/04/2024 8:35 AM [facility] MCV 88.7 79.0 - 98.0 FL LAB HEMETOLOGY METHOD 09/04/2024 8:35 AM [facility] MCH 28.9 27.0 - 32.0 pcg LAB HEMETOLOGY METHOD 09/04/2024 8:35 AM [facility] MCHC 32.5 32.0 - 37.0 g/dL LAB HEMETOLOGY METHOD 09/04/2024 8:35 AM [facility] RDW 11.9 11.0 - 15.0 % LAB HEMETOLOGY METHOD 09/04/2024 8:35 AM [facility] Platelets 207 130 - 400 K/mcL LAB HEMETOLOGY METHOD 09/04/2024 8:35 AM [facility] MPV 10.0 7.0 - 11.0 FL LAB HEMETOLOGY METHOD 09/04/2024 8:35 AM EDT [facility] NRBC 0.0 <1.0 % LAB HEMETOLOGY METHOD 09/04/2024 8:35 AM EDT [facility] NRBC Absolute 0.00 <0.10 K/mcL LAB HEMETOLOGY METHOD 09/04/2024 8:35 AM EDT [facility] Blood Venous blood specimen / Unknown 09/04/2024 6:49 AM EDT 09/04/2024 8:12 AM EDT us Kaleb Ko MD LAB BLOOD ORDERABLES Final Resul t Performing Organization Address City/[facility]/ZIP Co de Phone Number [facility] [address] [place] [address], [place] [phone] * Thyroid stimulating hormone (09/04/2024 6:49 AM EDT) TSH 1.62 0.40 - 4.00 mcIU/mL LAB CHEMISTRY METHOD 09/04/2024 11:33 AM EDT [facility] Blood Venous blood specimen / Unknown 09/04/2024 6:49 AM EDT 09/04/2024 8:12 AM EDT us Kaleb Ko MD LAB BLOOD ORDERABLES Final Resul t Performing Organization Address City/[facility]/ZIP Co de Phone Number [facility] [address] [place] [address], [place] [phone] * Lipid panel with reflex to direct LDL (09/04/2024 6:49 AM EDT) Cholesterol 147 0 - 200 mg/dL LAB CHEMISTRY METHOD 09/04/2024 9:09 AM EDT [facility] Triglycerides 66 0 - 150 mg/dL LAB CHEMISTRY METHOD 09/04/2024 9:09 AM EDT [facility] HDL 51 >=40 mg/dL LAB CHEMISTRY METHOD 09/04/2024 9:09 AM EDT [facility] LDL Calculated 83 0 - 100 mg/dL LAB CHEMISTRY METHOD 09/04/2024 9:09 AM [facility] VLDL Cholesterol Luis 13.2 mg/dL LAB CHEMISTRY METHOD 09/04/2024 9:09 AM EDT [facility] Non HDL Chol. (LDL+VLDL) 96 <145 mg/dL LAB CHEMISTRY METHOD 09/04/2024 9:09 AM [facility] Chol/HDL Ratio 2.9 0.0 - 4.4 LAB CHEMISTRY METHOD 09/04/2024 9:09 AM [facility] Blood Venous blood specimen / Unknown 09/04/2024 6:49 AM EDT 09/04/2024 8:12 AM EDT us Kaleb Ko MD LAB BLOOD ORDERABLES Final Resul t [facility] [address] [place] [address], * (ABNORMAL) Comprehensive metabolic panel (09/04/2024 6:49 AM EDT) Sodium 138 133 - 145 mmol/L LAB CHEMISTRY METHOD 09/04/2024 9:09 AM [facility] Potassium 3.9 3.5 - 5.5 mmol/L LAB CHEMISTRY METHOD 09/04/2024 9:09 AM [facility] Chloride 106 96 - 110 mmol/L LAB CHEMISTRY METHOD 09/04/2024 9:09 AM [facility] CO2 27 21 - 32 mmol/L LAB CHEMISTRY METHOD 09/04/2024 9:09 AM [facility] Anion Gap 5 3 - 11 LAB [facility] Glucose 123(H) 70 - 100 mg/dL LAB CHEMISTRY METHOD 09/04/2024 9:09 AM [facility] BUN 17 5 - 25 mg/dL LAB CHEMISTRY METHOD 09/04/2024 9:09 AM [facility] Creatinine 0.69 0.50 - 1.10 mg/dL LAB CHEMISTRY METHOD 09/04/2024 9:09 AM [facility] eGFR 98 >=60 mL/min/1. 73m2 LAB CHEMISTRY METHOD 09/04/2024 9:09 AM [facility] Comment:Calculation based on the Chronic Kidney Disease Epidemiology Collaboration (CKD-EPI) equation refit without adjustment for race. BUN/Creatinine Ratio 24.6 LAB CHEMISTRY METHOD 09/04/2024 9:09 AM [facility] Calcium 9.2 8.5 - 10.5 mg/dL LAB CHEMISTRY METHOD 09/04/2024 9:09 AM [facility] AST (SGOT) 12 10 - 42 unit/L LAB CHEMISTRY METHOD 09/04/2024 9:09 AM [facility] ALT (SGPT) 15 10 - 60 unit/L LAB CHEMISTRY METHOD 09/04/2024 9:09 AM [facility] Alkaline Phosphatase 72 42 - 121 unit/L LAB CHEMISTRY METHOD 09/04/2024 9:09 AM [facility] Total Protein 6.9 6.0 - 8.0 g/dL LAB CHEMISTRY METHOD 09/04/2024 9:09 AM [facility] Albumin 3.3 3.2 - 5.0 g/dL LAB CHEMISTRY METHOD 09/04/2024 9:09 AM [facility] Total Bilirubin 0.4 0.0 - 1.4 mg/dL LAB CHEMISTRY METHOD 09/04/2024 9:09 AM [facility] Blood Venous blood specimen / Unknown 09/04/2024 6:49 AM EDT 09/04/2024 8:12 AM EDT Kaleb Ko MD LAB BLOOD ORDERABLES Final Resul t [facility]) [facility] [address] [place] [address], documented in this encounter Visit Diagnoses Diagnosis 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
--- OUTSIDE RECORDS SUMMARY | 2025-01-01 12:29 | XMS_ITS | Encounter Summary ---
Author Organization [facility] Address [address] [place] [address] Care Team Providers Care Steel Detailer Name Role Phone Kaleb Ko MD Primary Care Provider [phone] Encounter Details Date Type Department Care Team (Late st Contact Info) Description 02/18/2024 Lab Requisition [facility] - Main Lab [address] [facility] [place] [phone] Kaleb Ko MD [address] [place] [address] Dr [address] [place], [place] Hemiplegia and hemiparesis following nontraumatic intracerebral [...] developed and the performance characteristics determined by [facility]. This confirmation testing has not been cleared or approved by the FDA. The laboratory is regulated under CLIA as qualified to perform high-complexity testing. This test is used for patient testing purposes. It should not be regarded as investigational or for research. Test performed at [facility], [address] , [place] [address] Smitha Mesa MD, PhD - Sand Drier Blood Venous blood specimen / Unknown 02/18/2024 6:51 AM EST 02/18/2024 7:41 AM EST us Kaleb Ko MD LAB BLOOD ORDERABLES Final Resul t Performing Organization Address [facility] Co de Phone Number [facility] [address] [place] [address] * Hemoglobin A1c (02/18/2024 6:51 AM EST) Hemoglobin A1C 6.2 <6.5 % LAB CHEMISTRY METHOD 02/18/2024 1:55 PM EST [facility] Mean Bld Glu Estim. 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
--- OUTSIDE RECORDS SUMMARY | 2025-01-01 12:29 | XMS_ITS | Encounter Summary ---
Author Organization [facility] Address [address] [place] [address] Care Team Providers Care Director Social Name Role Phone Kaleb Ko MD Primary Care Provider [phone] Encounter Details Date Type Department Care Team (Late st Contact Info) Description 03/30/2024 Lab Requisition [facility] - Main Lab [address] [place] [phone] Kaleb Ko MD [address] [place] [address] Dr [address] [place], [place] Other fatigue Social History Tobacco Use [...] LAB CHEMISTRY METHOD 03/30/2024 8:23 AM EST [facility] Blood Venous blood specimen / Unknown 03/30/2024 6:35 AM EST 03/30/2024 7:24 AM EST us Kaleb Snow MD LAB BLOOD ORDERABLES Final Resul t Performing Organization Address [facility]/ZIP Co de Phone Number [facility] [address] [place] [address], [place] [phone] * Thyroid stimulating hormone (03/30/2024 6:35 AM EST) TSH 3.23 0.40 - 4.00 mcIU/mL LAB CHEMISTRY METHOD 03/30/2024 8:23 AM EST [facility] Blood Venous blood specimen / Unknown 03/30/2024 6:35 AM EST 03/30/2024 7:24 AM EST us Kaleb Ko MD LAB BLOOD ORDERABLES Final Resul t Performing Organization Address [facility] Co de Phone Number [facility] [address] [place] [address], [place] [phone] documented in this encounter Visit Diagnoses Diagnosis Other fatigue documented in this encounter Care Teams Director Social Relationship Specialty Start Date End Date Kaleb Ko MD [address] [facility] [address] [facility] [place] PCP - General Internal Medicine 03/24/24 documented as of this encounter
--- OUTSIDE RECORDS SUMMARY | 2025-01-01 12:29 | XMS_ITS | Encounter Summary ---
Author Organization [facility] Address [address] [place] [address] Care Team Providers Care Miner Helper Name Role Phone Kaleb Ko MD Primary Care Provider [phone] Encounter Details Date Type Department Care Team (Late st Contact Info) Description 01/17/2024 Lab Requisition [facility] - Main Lab [address] [place] [phone] Kaleb Ko MD [address] [place] [address] [address] [place], [place] Hemiplegia and hemiparesis following nontraumatic intracerebral [...] LAB CHEMISTRY METHOD 01/18/2024 7:39 PM EST [facility] Mean Bld Glu Estim. 103 mg/dL LAB CHEMISTRY METHOD 01/18/2024 7:39 PM EST [facility] Blood Venous blood specimen / Unknown 01/17/2024 6:30 AM EST 01/17/2024 6:59 AM EST us Kaleb Ko MD LAB BLOOD ORDERABLES Final Resul t Performing Organization Address City/[facility]/ZIP Co de Phone Number [facility] [address] [place] [address], [place] [phone] * Gabapentin level (01/17/2024 6:30 AM EST) Gabapentin 5.9 2.0 - 12.0 ug/mL 01/20/2024 11:26 AM EST [facility] Comment: If applicable, any drug confirmation testing reported here was developed and the performance characteristics determined by [facility]. This confirmation testing has not been cleared or approved by the FDA. The laboratory is regulated under CLIA as qualified to perform high-complexity testing. This test is used for patient testing purposes. It should not be regarded as investigational or for research. Test performed at [facility], [address], [place] [address] Smitha Mesa MD, PhD - Finance Assistant Blood Venous blood specimen / Unknown 01/17/2024 6:30 AM EST 01/17/2024 6:59 AM EST us Kaleb Ko MD LAB BLOOD ORDERABLES Final Resul t [facility] 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
--- OUTSIDE RECORDS SUMMARY | 2025-01-01 12:29 | XMS_ITS | Encounter Summary ---
Author Organization [facility] Address [address] [place] [address] Care Team Providers Care Chick Grader Name Role Phone Kaleb Ko MD Primary Care Provider [phone] Encounter Details Date Type Department Care Team (Late st Contact Info) Description 01/28/2024 Lab Requisition [facility] - Main Lab [address] [place] [phone] Kaleb Ko MD [address] [place] [address] Dr [address] [place], [place] Weakness Social History Tobacco Use Types [...] AM EST) WBC 12.7(H) 4.8 - 10.8 K/[facility] LAB HEMETOLOGY METHOD 01/28/2024 8:14 AM EST [facility] RBC 4.70 3.80 - 4.80 M/[facility] LAB HEMETOLOGY METHOD 01/28/2024 8:14 AM [facility] Hemoglobin 14.0 11.5 - 16.0 g/dL LAB HEMETOLOGY METHOD 01/28/2024 8:14 AM [facility] Hematocrit 41.4 35.0 - 47.0 % LAB HEMETOLOGY METHOD 01/28/2024 8:14 AM [facility] MCV 88.3 79.0 - 98.0 FL LAB HEMETOLOGY METHOD 01/28/2024 8:14 AM [facility] MCH 29.9 27.0 - 32.0 pcg LAB HEMETOLOGY METHOD 01/28/2024 8:14 AM [facility] MCHC 33.8 32.0 - 37.0 g/dL LAB HEMETOLOGY METHOD 01/28/2024 8:14 AM [facility] RDW 12.1 11.0 - 15.0 % LAB HEMETOLOGY METHOD 01/28/2024 8:14 AM [facility] Platelets 246 130 - 400 K/mcL LAB HEMETOLOGY METHOD 01/28/2024 8:14 AM [facility] MPV 10.9 7.0 - 11.0 FL LAB HEMETOLOGY METHOD 01/28/2024 8:14 AM [facility] NRBC 0.0 <1.0 % LAB HEMETOLOGY METHOD 01/28/2024 8:14 AM [facility] NRBC Absolute 0.00 <0.10 K/mcL LAB HEMETOLOGY METHOD 01/28/2024 8:14 AM [facility] Neutrophils Relative 75.6 % LAB HEMETOLOGY METHOD 01/28/2024 8:14 AM [facility] Lymphocytes Relative 14.2 % LAB HEMETOLOGY METHOD 01/28/2024 8:14 AM [facility] Monocytes Relative 9.2 % LAB HEMETOLOGY METHOD 01/28/2024 8:14 AM EST [facility] Eosinophils Relative 0.1 % LAB HEMETOLOGY METHOD 01/28/2024 8:14 AM [facility] Basophils Relative 0.4 % LAB HEMETOLOGY METHOD 01/28/2024 8:14 AM [facility] Immature Granulocytes Relative 0.5 % LAB HEMETOLOGY METHOD 01/28/2024 8:14 AM EST [facility] Neutrophils Absolute 9.57(H) 1.50 - 7.00 K/mcL LAB HEMETOLOGY METHOD 01/28/2024 8:14 AM [facility] Lymphocytes Absolute 1.80 1.00 - 5.00 K/mcL LAB HEMETOLOGY METHOD 01/28/2024 8:14 AM [facility] Monocytes Absolute 1.17(H) 0.20 - 1.00 K/mcL LAB HEMETOLOGY METHOD 01/28/2024 8:14 AM EST [facility] Eosinophils Absolute 0.01 0.00 - 0.50 K/mcL LAB HEMETOLOGY METHOD 01/28/2024 8:14 AM EST [facility] Basophils Absolute 0.05 0.00 - 0.20 K/mcL LAB HEMETOLOGY METHOD 01/28/2024 8:14 AM [facility] Immature Granulocytes Absolute 0.06(H) 0.00 - 0.03 K/mcL LAB HEMETOLOGY METHOD 01/28/2024 8:14 AM [facility] Blood Venous blood specimen / Unknown 01/28/2024 6:33 AM EST 01/28/2024 7:54 AM EST us Kaleb Ko MD LAB BLOOD ORDERABLES Final Resul t [facility] [address] [place] [address], * (ABNORMAL) Comprehensive metabolic panel (01/28/2024 6:33 AM EST) Sodium 138 133 - 145 mmol/L LAB CHEMISTRY METHOD 01/28/2024 8:30 AM [facility] Potassium 3.7 3.5 - 5.5 mmol/L LAB CHEMISTRY METHOD 01/28/2024 8:30 AM [facility] Chloride 107 96 - 110 mmol/L LAB CHEMISTRY METHOD 01/28/2024 8:30 AM [facility] CO2 26 21 - 32 mmol/L LAB CHEMISTRY METHOD 01/28/2024 8:30 AM [facility] Anion Gap 5 3 - 11 LAB CHEMISTRY METHOD 01/28/2024 8:30 AM [facility] Glucose 157(H) 70 - 100 mg/dL LAB CHEMISTRY METHOD 01/28/2024 8:30 AM [facility] BUN 21 5 - 25 mg/dL LAB CHEMISTRY METHOD 01/28/2024 8:30 AM [facility] Creatinine 0.88 0.50 - 1.10 mg/dL LAB CHEMISTRY METHOD 01/28/2024 8:30 AM [facility] eGFR 74 >=60 mL/min/1. 73m2 LAB CHEMISTRY METHOD 01/28/2024 8:30 AM [facility] Comment:Calculation based on the Chronic Kidney Disease Epidemiology Collaboration (CKD-EPI) equation refit without adjustment for race. BUN/Creatinine Ratio 23.9 LAB CHEMISTRY METHOD 01/28/2024 8:30 AM [facility] Calcium 9.1 8.5 - 10.5 mg/dL LAB CHEMISTRY METHOD 01/28/2024 8:30 AM [facility] AST (SGOT) 25 10 - 42 unit/L LAB CHEMISTRY METHOD 01/28/2024 8:30 AM [facility] ALT (SGPT) 30 10 - 60 unit/L LAB CHEMISTRY METHOD 01/28/2024 8:30 AM EST [facility] Alkaline Phosphatase 67 42 - 121 unit/L LAB CHEMISTRY METHOD 01/28/2024 8:30 AM EST [facility] Total Protein 6.6 6.0 - 8.0 g/dL LAB CHEMISTRY METHOD 01/28/2024 8:30 AM [facility] Albumin 3.2 3.2 - 5.0 g/dL LAB CHEMISTRY METHOD 01/28/2024 8:30 AM [facility] Total Bilirubin 0.7 0.0 - 1.4 mg/dL LAB CHEMISTRY METHOD 01/28/2024 8:30 AM [facility] Blood Venous blood specimen / Unknown 01/28/2024 6:33 AM EST 01/28/2024 7:54 AM EST us Kaleb Ko MD LAB BLOOD ORDERABLES Final Resul t [facility] [address] [place] [address], documented in this encounter Visit Diagnoses Diagnosis Weakness Other malaise and fatigue documented in this encounter Care Teams Chick Grader Relationship Specialty Start Date End Date Kaleb Ko MD [address] [place] [address] [address] [place] PCP - General Internal Medicine 03/24/24 documented as of this encounter
--- OUTSIDE RECORDS SUMMARY | 2025-01-01 12:29 | XMS_ITS | Encounter Summary ---
Author Organization [facility] Address [address] [place] [address] Care Team Providers Care Extruder Operator Vertical Name Role Phone Kaleb Ko MD Primary Care Provider [phone] Encounter Details Date Type Department Care Team (Late st Contact Info) Description 03/06/2024 Lab Requisition [facility] - Main Lab [address] [facility] [place] [phone] Kaleb Ko MD [address] [place] [address] [address] [place], [place] Hemiplegia and hemiparesis following nontraumatic intracerebral [...] CBC auto differential (03/06/2024 6:45 AM EST) [facility] WBC 5.4 4.8 - 10.8 K/mcL LAB HEMETOLOGY METHOD 03/06/2024 8:02 AM [facility] RBC 4.30 3.80 - 4.80 M/mcL LAB HEMETOLOGY METHOD 03/06/2024 8:02 AM [facility] Hemoglobin 12.9 11.5 - 16.0 g/dL LAB HEMETOLOGY METHOD 03/06/2024 8:02 AM [facility] Hematocrit 38.0 35.0 - 47.0 % LAB HEMETOLOGY METHOD 03/06/2024 8:02 AM [facility] MCV 88.2 79.0 - 98.0 FL LAB HEMETOLOGY METHOD 03/06/2024 8:02 AM [facility] MCH 29.9 27.0 - 32.0 pcg LAB HEMETOLOGY METHOD 03/06/2024 8:02 AM [facility] MCHC 33.9 32.0 - 37.0 g/dL LAB HEMETOLOGY METHOD 03/06/2024 8:02 AM [facility] RDW 12.2 11.0 - 15.0 % LAB HEMETOLOGY METHOD 03/06/2024 8:02 AM [facility] Platelets 199 130 - 400 K/mcL LAB HEMETOLOGY METHOD 03/06/2024 8:02 AM [facility] MPV 10.4 7.0 - 11.0 FL LAB HEMETOLOGY METHOD 03/06/2024 8:02 AM [facility] NRBC 0.0 <1.0 % LAB HEMETOLOGY METHOD 03/06/2024 8:02 AM [facility] NRBC Absolute 0.00 <0.10 K/mcL LAB HEMETOLOGY METHOD 03/06/2024 8:02 AM [facility] Neutrophils Relative 40.0 % LAB HEMETOLOGY METHOD 03/06/2024 8:02 AM [facility] Lymphocytes Relative 47.3 % LAB HEMETOLOGY METHOD 03/06/2024 8:02 AM [facility] Monocytes Relative 8.3 % LAB HEMETOLOGY METHOD 03/06/2024 8:02 AM [facility] Eosinophils Relative 3.3 % LAB HEMETOLOGY METHOD 03/06/2024 8:02 AM [facility] Basophils Relative 0.9 % LAB HEMETOLOGY METHOD 03/06/2024 8:02 AM [facility] Immature Granulocytes Relative 0.2 % LAB HEMETOLOGY METHOD 03/06/2024 8:02 AM [facility] Neutrophils Absolute 2.17 1.50 - 7.00 K/mcL LAB HEMETOLOGY METHOD 03/06/2024 8:02 AM [facility] Lymphocytes Absolute 2.57 1.00 - 5.00 K/mcL LAB HEMETOLOGY METHOD 03/06/2024 8:02 AM [facility] Monocytes Absolute 0.45 0.20 - 1.00 K/mcL LAB HEMETOLOGY METHOD 03/06/2024 8:02 AM [facility] Eosinophils Absolute 0.18 0.00 - 0.50 K/mcL LAB HEMETOLOGY METHOD 03/06/2024 8:02 AM [facility] Basophils Absolute 0.05 0.00 - 0.20 K/mcL LAB HEMETOLOGY METHOD 03/06/2024 8:02 AM EST [facility] Immature Granulocytes Absolute 0.01 0.00 - 0.03 K/[facility] LAB HEMETOLOGY METHOD 03/06/2024 8:02 AM [facility] Blood Venous blood specimen / Unknown 03/06/2024 6:45 AM EST 03/06/2024 7:42 AM EST us Kaleb Ko MD LAB BLOOD ORDERABLES Final Resul t Performing Organization Address City/[facility]/ZIP Co de Phone Number [facility] [address] [place] [address], [place] [phone] * Vitamin D 25 hydroxy (03/06/2024 6:45 AM EST) Vit D, 25-Hydroxy 31.5 30.0 - 80.0 ng/mL LAB CHEMISTRY METHOD 03/06/2024 9:06 AM [facility] Blood Venous blood specimen / Unknown 03/06/2024 6:45 AM EST 03/06/2024 7:42 AM EST us Kaleb Ko MD LAB BLOOD ORDERABLES Final Resul t Performing Organization Address City/[facility]/ZIP Co de Phone Number [facility] [address] [place] [address], [place] [phone] * Lipid panel with reflex to direct LDL (03/06/2024 6:45 AM EST) Cholesterol 167 0 - 200 mg/dL LAB CHEMISTRY METHOD 03/06/2024 8:26 AM [facility] Triglycerides 105 0 - 150 mg/dL LAB CHEMISTRY METHOD 03/06/2024 8:26 AM EST [facility] HDL 46 >=40 mg/dL LAB CHEMISTRY METHOD 03/06/2024 8:26 AM EST [facility] LDL Calculated 100 0 - 100 mg/dL LAB CHEMISTRY METHOD 03/06/2024 8:26 AM [facility] VLDL Cholesterol Luis 21 mg/dL LAB CHEMISTRY METHOD 03/06/2024 8:26 AM [facility] Non HDL Chol. (LDL+VLDL) 121 <145 mg/dL LAB CHEMISTRY METHOD 03/06/2024 8:26 AM [facility] Chol/HDL Ratio 3.6 0.0 - 4.4 LAB CHEMISTRY METHOD 03/06/2024 8:26 AM [facility] Blood Venous blood specimen / Unknown 03/06/2024 6:45 AM EST 03/06/2024 7:42 AM EST us Kaleb Ko MD LAB BLOOD ORDERABLES Final Resul t [facility] [address] [place] [address], * (ABNORMAL) Comprehensive metabolic panel (03/06/2024 6:45 AM EST) Sodium 140 133 - 145 mmol/L LAB CHEMISTRY METHOD 03/06/2024 8:26 AM [facility] Potassium 3.8 3.5 - 5.5 mmol/L LAB CHEMISTRY METHOD 03/06/2024 8:26 AM [facility] Chloride 108 96 - 110 mmol/L LAB CHEMISTRY METHOD 03/06/2024 8:26 AM [facility] CO2 27 21 - 32 mmol/L LAB CHEMISTRY METHOD 03/06/2024 8:26 AM [facility] Anion Gap 5 3 - 11 LAB CHEMISTRY METHOD 03/06/2024 8:26 AM [facility] Glucose 117(H) 70 - 100 mg/dL LAB CHEMISTRY METHOD 03/06/2024 8:26 AM [facility] BUN 16 5 - 25 mg/dL LAB CHEMISTRY METHOD 03/06/2024 8:26 AM [facility] Creatinine 0.69 0.50 - 1.10 mg/dL LAB CHEMISTRY METHOD 03/06/2024 8:26 AM [facility] eGFR 98 >=60 mL/min/1. 73m2 LAB CHEMISTRY METHOD 03/06/2024 8:26 AM [facility] Comment:Calculation based on the Chronic Kidney Disease Epidemiology Collaboration (CKD-EPI) equation refit without adjustment for race. BUN/Creatinine Ratio 23.2 LAB CHEMISTRY METHOD 03/06/2024 8:26 AM [facility] Calcium 9.0 8.5 - 10.5 mg/dL LAB CHEMISTRY METHOD 03/06/2024 8:26 AM [facility] AST (SGOT) 14 10 - 42 unit/L LAB CHEMISTRY METHOD 03/06/2024 8:26 AM [facility] ALT (SGPT) 13 10 - 60 unit/L LAB CHEMISTRY METHOD 03/06/2024 8:26 AM [facility] Alkaline Phosphatase 59 42 - 121 unit/L LAB CHEMISTRY METHOD 03/06/2024 8:26 AM [facility] Total Protein 6.7 6.0 - 8.0 g/dL LAB CHEMISTRY METHOD 03/06/2024 8:26 AM [facility] Albumin 3.3 3.2 - 5.0 g/dL LAB CHEMISTRY METHOD 03/06/2024 8:26 AM [facility] Total Bilirubin 0.4 0.0 - 1.4 mg/dL LAB CHEMISTRY METHOD 03/06/2024 8:26 AM [facility] Blood Venous blood specimen / Unknown 03/06/2024 6:45 AM EST 03/06/2024 7:42 AM EST us Kaleb Ko MD LAB BLOOD ORDERABLES Final Resul t [facility] [address] [place] [address], documented in this encounter Visit Diagnoses Diagnosis 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
--- OUTSIDE RECORDS SUMMARY | 2025-01-01 12:29 | XMS_ITS | Encounter Summary ---
Author Organization [facility] Address [address] [place] [address] Care Team Providers Care Warehouse Order Picker Name Role Phone Kaleb Ko MD Primary Care Provider [phone] Encounter Details Date Type Department Care Team (Late st Contact Info) Description 04/17/2024 Lab Requisition [facility] - Main Lab [address] [place] [phone] Kaleb Ko MD [address] [place] [address] Dr [address] [place], [place] Hemiplegia and hemiparesis following nontraumatic intracerebral [...] LAB CHEMISTRY METHOD 04/17/2024 8:07 AM EST [facility] Albumin 3.2 3.2 - 5.0 g/dL LAB CHEMISTRY METHOD 04/17/2024 8:07 AM EST [facility] Total Bilirubin 0.3 0.0 - 1.4 mg/dL LAB CHEMISTRY METHOD 04/17/2024 8:07 AM EST [facility] Bilirubin, Direct <0.1 0.0 - 0.3 mg/dL LAB CHEMISTRY METHOD 04/17/2024 8:07 AM [facility] Bilirubin, Indirect LAB CHEMISTRY METHOD 04/17/2024 8:07 AM [facility] Comment:Unable to calculate Indirect Bilirubin. ALT (SGPT) 22 10 - 60 unit/L LAB CHEMISTRY METHOD 04/17/2024 8:07 AM [facility] AST (SGOT) 16 10 - 42 unit/L LAB CHEMISTRY METHOD 04/17/2024 8:07 AM [facility] Alkaline Phosphatase 66 42 - 121 unit/L LAB CHEMISTRY METHOD 04/17/2024 8:07 AM [facility] Blood Venous blood specimen / Unknown 04/17/2024 6:42 AM EST 04/17/2024 7:33 AM EST us Kaleb Ko MD LAB BLOOD ORDERABLES Final Resul t [facility] [address] [place] [address], documented in this encounter Visit Diagnoses Diagnosis Hemiplegia and hemiparesis following nontraumatic intracerebral hemorrhage affecting left non-dominant side (CMS/HCC V24, CMS/HCC V28) documented in this encounter Care Teams Warehouse Order Picker Relationship Specialty Start Date End Date Kaleb Ko MD [address] [facility] Lei Garcia [place] PCP - General Internal Medicine 03/24/24 documented as of this encounter
--- OUTSIDE RECORDS SUMMARY | 2025-01-01 12:29 | XMS_ITS | Encounter Summary ---
Author Organization [facility] Address [address] [place] [address] Care Team Providers Care Galley Hand Name Role Phone Kaleb Ko MD Primary Care Provider [phone] Encounter Details Date Type Department Care Team (Late st Contact Info) Description 11/17/[address] [facility] - Main Lab [address] [facility] [employer] [place] [phone] Kaleb Ko MD [address] [place] [address] [address] [place], [place] Hemiplegia and hemiparesis following nontraumatic intracerebral [...] LAB CHEMISTRY METHOD 11/17/2024 1:28 PM EDT [facility] Mean Bld Glu Estim. 123 mg/dL LAB CHEMISTRY METHOD 11/17/2024 1:28 PM EDT [facility] Blood Venous blood specimen / Unknown 11/17/2024 6:48 AM EDT 11/17/2024 7:15 AM EDT us Kaleb Ko MD LAB BLOOD ORDERABLES Final Resul t Performing Organization Address [facility] Co de Phone Number [facility] [address] [place] [address], [place] [phone] * Gabapentin level (11/17/2024 6:48 AM EDT) Gabapentin 9.2 2.0 - 12.0 ug/mL 11/20/2024 8:34 AM EDT [facility] Comment: If applicable, any drug confirmation testing reported here was developed and the performance characteristics determined by [facility]. This confirmation testing has not been cleared or approved by the FDA. The laboratory is regulated under CLIA as qualified to perform high-complexity testing. This test is used for patient testing purposes. It should not be regarded as investigational or for research. Test performed at [facility], [address] , [place] [address] Smitha Mesa MD, PhD - Lithograph Press Operator [employer] Blood Venous blood specimen / Unknown 11/17/2024 6:48 AM EDT 11/17/2024 7:15 AM EDT us Kaleb Ko MD LAB BLOOD ORDERABLES Final Resul t Performing Organization Address City/[facility]/ZIP Co de Phone Number [facility] 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
--- OUTSIDE RECORDS SUMMARY | 2025-01-01 12:29 | XMS_ITS | Clinical Summary ---
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 This confirmation testing has not been cleared or approved by the FDA. The laboratory is regulated under CLIA as qualified to perform high-complexity testing. This test is used for patient testing purposes. It should not be regarded as investigational or for research. Test performed at [facility], [address] , [place] [address] Smitha Mesa MD, PhD - Manager Integration Blood Venous blood specimen / Unknown 11/21/2024 6:37 AM EDT 11/21/2024 7:43 AM EDT us Kaleb Ko MD LAB BLOOD ORDERABLES Final Resul t [facility] [address] [place] [address] * Hemoglobin A1c (11/17/2024 6:48 AM EDT) Pathologist [facility] Hemoglobin A1C 5.9 <6.5 % LAB CHEMISTRY METHOD 11/17/2024 1:28 PM EDT [facility] Mean Bld Glu Estim. 123 mg/dL LAB CHEMISTRY METHOD 11/17/2024 1:28 PM EDT [facility] Blood Venous blood specimen / Unknown 11/17/2024 6:48 AM EDT 11/17/2024 7:15 AM EDT us Kaleb Ko MD LAB BLOOD ORDERABLES Final Resul t [facility] [address] [place] [address], [place] [phone] * Lipid panel with reflex to direct LDL (09/04/2024 6:49 AM EDT) Cholesterol 147 0 - 200 mg/dL LAB CHEMISTRY METHOD 09/04/2024 9:09 AM EDT [facility] Triglycerides 66 0 - 150 mg/dL LAB CHEMISTRY METHOD 09/04/2024 9:09 AM EDT [facility] HDL 51 >=40 mg/dL LAB CHEMISTRY METHOD 09/04/2024 9:09 AM EDT [facility] LDL Calculated 83 0 - 100 mg/dL LAB CHEMISTRY METHOD 09/04/2024 9:09 AM EDT [facility] VLDL Cholesterol Luis 13.2 mg/dL LAB CHEMISTRY METHOD 09/04/2024 9:09 AM [facility] Non HDL Chol. (LDL+VLDL) 96 <145 mg/dL LAB CHEMISTRY METHOD 09/04/2024 9:09 AM [facility] Chol/HDL Ratio 2.9 0.0 - 4.4 LAB CHEMISTRY METHOD 09/04/2024 9:09 AM T [facility] Blood Venous blood specimen / Unknown 09/04/2024 6:49 AM EDT 09/04/2024 8:12 AM EDT us Kaleb Ko MD LAB BLOOD ORDERABLES Final Resul t [facility] [address] [place] [address], from Last 3 Months or Most Recently Relevant to Health Maintenance Insurance MEDICAID [facility] Member Subscriber Plan / Payer (Ef fective 2024-Present) Name:Anabela Spring Member ID:[id number] Relation to Subscriber:Self Name:Anabela Spring Subscriber ID:[id number] Payer ID:[id number] Group ID:Not on file Type:Not on file Address: [place] [id number] Care Teams Window Unit Air Conditioning Mechanic Relationship Specialty Start Date End Date Kaleb Ko MD [address] [place] [address] Dr [address] [place] PCP - General Internal Medicine 03/24/24
--- OUTSIDE RECORDS SUMMARY | 2025-01-01 12:29 | XMS_ITS | Clinical Summary ---
Author Organization [facility] Address [address] [address] Phone Care Team Providers Care Toggle Press Folder And Feeder Name Role Phone Kaleb Ko DO Primary Care Provider [phone] Allergies Active Allergy Reactions Criticality Noted Date [...] SEE NARRATIVE - 04/24/2020 10:02 [place] [address] Estate Planning Counselor: Ana Long MD MARKETING OFFICER Cytology Report FINAL DIAGNOSIS A. PAP SMEAR [...] 52, 56, 58, 59, 66, 68) by [employer] F?rsat HR-HPV analysis. Clinical correlation is advised. This HPV test was performed at [facility], [address] [place] [address]. This test has been FDA approved for Sure[employer] cervical cytology specimens. The accuracy and precision of this test for all other specimen sources has been verified in the Cytopathology Laboratory of the [facility] and has not been cleared or approved by the U.S. Food and Drug Administration. Clinical correlation is advised. CLINICAL HISTORY Date of Last Menstrual Period: Not Provided Menstrual History: Post Menopausal Other Clinical Conditions: Screening Pap SPECIMEN SOURCE A: PAP SMEAR (SUREPATH) CE Patient Name: ANABELA SPRING : 1960 (Age: 59) Sex: F Institution: [facility] Location: [facility] Date of Collection: 04/16/2020 Date of Reported: 04/18/2020 16:41 Results to: Marisel Ward MSN, BS Marisel Ward BICYCLE REPAIR TECHNICIAN CYTOLOGY ORDERABLES Edited Res ult - Final SEE NARRATIVE from Last 3 Months or Most Recently Relevant to Health Maintenance Insurance [place] MEDICAID [employer] [place] [id number] MEDICAID [employer] [place] [id number] MEDICAID [employer] [place] [address] MED[place]ID MEDICAID [employer] [place] [address] MEDICAID [employer] [place] [address] [place] [address] MEDICAID Care Teams Toggle Press Folder And Feeder Relationship Specialty Start Date End Date Kaleb Ko DO [address] [place] [address] PCP - General Internal Medicine 12/31/16 Additional Source Comments The information contained in this document represents components of the legal health record. It is not the complete legal health record.[facility]
--- OUTSIDE RECORDS SUMMARY | 2025-01-01 12:29 | XMS_ITS | Clinical Summary ---
Author Organization [facility] Address [address] [place] [address] Phone Care Team Providers Care Feather Boner Name Role Phone Unavailable Primary Care Provider Unavailabl e Encounters Date Type Department Care Team Description 12/06/2024 1:15 PM EDT Office Visit [facility] [address] [place] [address] Patricia Menendez MD Exotropia (Primary [...] to complete this topic Insurance [employer] AT [address] [address] [place] - MEDICAID
--- OUTSIDE RECORDS SUMMARY | 2025-01-01 12:29 | XMS_ITS | Encounter Summary ---
Author Organization [facility] Address [address] [place] [address] Care Team Providers Care Director Of Contracts Name Role Phone Kaleb Ko MD Primary Care Provider [phone] Encounter Details Date Type Department Care Team (Late st Contact Info) Description 05/18/2024 Lab Requisition [facility] - Main Lab [address] [facility] [place] [phone] Kaleb Ko MD [address] [place] [address] Dr [address] [place], [place] Hemiplegia and hemiparesis following nontraumatic intracerebral [...] - 12.0 ug/mL 05/22/2024 5:37 AM EDT [facility] Comment: If applicable, any drug confirmation testing reported here was developed and the performance characteristics determined by [facility]. This confirmation testing has not been cleared or approved by the FDA. The laboratory is regulated under CLIA as qualified to perform high-complexity testing. This test is used for patient testing purposes. It should not be regarded as investigational or for research. Test performed at [facility], [address] , [place] [address] Smitha Mesa MD, PhD - Compliance Specialist Blood Venous blood specimen / Unknown 05/18/2024 6:43 AM EDT 05/18/2024 7:34 AM EDT us Kaleb Ko MD LAB BLOOD ORDERABLES Final Resul t [facility] [address] [place] [address] * Hemoglobin A1c (05/18/2024 6:43 AM EDT) Pathologist [facility] Hemoglobin A1C 5.9 <6.5 % LAB CHEMISTRY METHOD 05/18/2024 11:50 AM EDT [facility] Mean Bld Glu Estim. 123 mg/dL LAB CHEMISTRY METHOD 05/18/2024 11:50 AM EDT [facility] Blood Venous blood specimen / Unknown 05/18/2024 6:43 AM EDT 05/18/2024 7:34 AM EDT us Kaleb Ko MD LAB BLOOD ORDERABLES Final Resul t [facility] [address] [place] [address], [place] [phone] * (ABNORMAL) Glucose, random (05/18/2024 6:43 AM EDT) Pathologist [facility] Glucose 113(H) 70 - 100 mg/dL LAB CHEMISTRY METHOD 05/18/2024 8:23 AM EDT [facility] Blood Venous blood specimen / Unknown 05/18/2024 6:43 AM EDT 05/18/2024 7:34 AM EDT Kaleb Ko MD LAB BLOOD ORDERABLES Final Resul t [facility] [address] [place] [address], [place] [phone] * Hepatic function panel (05/18/2024 6:43 AM EDT) [facility] Total Protein 6.7 6.0 - 8.0 g/dL LAB CHEMISTRY METHOD 05/18/2024 8:23 AM EDT [facility] Albumin 3.2 3.2 - 5.0 g/dL LAB CHEMISTRY METHOD 05/18/2024 8:23 AM EDT [facility] Total Bilirubin 0.3 0.0 - 1.4 mg/dL LAB CHEMISTRY METHOD 05/18/2024 8:23 AM EDT [facility] Bilirubin, Direct 0.1 0.0 - 0.3 mg/dL LAB CHEMISTRY METHOD 05/18/2024 8:23 AM EDT [facility] Bilirubin, Indirect 0.2 0.0 - 1.1 mg/dL LAB CHEMISTRY METHOD 05/18/2024 8:23 AM EDT [facility] ALT (SGPT) 12 10 - 60 unit/L LAB CHEMISTRY METHOD 05/18/2024 8:23 AM EDT [facility] AST (SGOT) 10 10 - 42 unit/L LAB CHEMISTRY METHOD 05/18/2024 8:23 AM EDT [facility] Alkaline Phosphatase 74 42 - 121 unit/L LAB CHEMISTRY METHOD 05/18/2024 8:23 AM EDT [facility] Blood Venous blood specimen / Unknown 05/18/2024 6:43 AM EDT 05/18/2024 7:34 AM EDT us Kaleb Ko MD LAB BLOOD ORDERABLES Final Resul t [facility] [address] [place] [address], documented in this encounter Visit Diagnoses Diagnosis 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
--- OUTSIDE RECORDS SUMMARY | 2025-01-01 12:29 | XMS_ITS | Encounter Summary ---
Author Organization [facility] Address [address] [place] [address] Care Team Providers Care Military Source Operations Officer Name Role Phone Kaleb Ko MD Primary Care Provider [phone] Encounter Details Date Type Department Care Team (Late st Contact Info) Description 09/25/2024 Lab Requisition [facility] - Main Lab [address] [facility] [place] [phone] Kaleb Ko MD [address] [place] [address] Dr [address] [place], [place] Urinary tract infection, site not specified [...] reflex microscopic (09/24/2024 6:15 PM EDT) Specific [place] Urine 1.031(H) 1.003 - 1.030 LAB URINALYSIS [...] - AUTOMATED METHOD 09/25/2024 9:16 AM EDT [facility] Bacteria, Urine Many(A) Negative /HPF LAB URINALYSIS - AUTOMATED METHOD 09/25/2024 9:16 AM EDT [facility] Hyaline Casts, Urine 0.6 0 - 3 /LPF LAB URINALYSIS - AUTOMATED METHOD 09/25/2024 9:16 AM EDT [facility] Urine Urine specimen obtained by clean catch procedure / Unknown 09/24/2024 6:15 PM EDT 09/25/2024 6:56 AM EDT us Kaleb Ko MD LAB URINE ORDERABLES Final Resul t Performing Organization Address [facility]/ZIP Co de Phone Number [facility] [address] [place] [address], [place] [phone] * (ABNORMAL) Culture urine (09/24/2024 6:15 PM EDT) Culture, Urine >=100,000 CFU/mL Aerococcus urinae(A) LIZ 09/27/2024 11:22 AM EDT [facility] Comment: Susceptibility testing not routinely performed. If further therapeutic information is required, please consult an infectious disease specialist. Edited result: Previously reported as Gram Positive Cocci on 09/26/2024 at 1110 EDT. Urine Urine specimen obtained by clean catch procedure / Unknown Non-blood Collection / Unknown 09/24/2024 6:15 PM EDT 09/25/2024 6:56 AM EDT Narrative [facility] - 09/27/2024 11:22 AM EDT Additional colony types present in insignificant amounts. us Kaleb Ko MD LAB MICROBIOLOGY - GENERAL ORDER GEE Final Result Performing Organization Address [facility]/ZIP Co de Phone Number [facility] [address] [place] [address], [place] [phone] documented in this encounter Visit Diagnoses Diagnosis Urinary tract infection, site not specified documented in this encounter Care Teams Military Source Operations Officer Relationship Specialty Start Date End Date Kaleb Ko MD [address] [place] [address] Dr [address] MARK Garcia PCP - General Internal Medicine 03/24/24 documented as of this encounter
--- OUTSIDE RECORDS SUMMARY | 2025-01-01 12:29 | XMS_ITS | Encounter Summary ---
Author Organization [facility] Address [address] [place] [address] Care Team Providers Care Cementer Helper Name Role Phone Kaleb Ko MD Primary Care Provider [phone] Encounter Details Date Type Department Care Team (Late st Contact Info) Description 11/21/2024 Lab Requisition [facility] - Main Lab [address] [place] [phone] Kaleb Ko MD [address] [place] [address] Dr [address] [place], [place] Encounter for therapeutic drug level monitoring [...] Associated Diagnosis Comments GABAPENTIN LEVEL Routine 11/21/2024 6:3 7 AM EDT Encounter for therapeutic drug level monitoring documented in this encounter Results * Gabapentin level (11/21/2024 6:37 AM EDT) Gabapentin 3.6 2.0 - 12.0 ug/mL 11/27/2024 7:26 AM EDT [facility] Comment: If applicable, any drug confirmation testing reported here was developed and the performance characteristics determined by [email or web address]. This confirmation testing has not been cleared or approved by the FDA. The laboratory is regulated under CLIA as qualified to perform high-complexity testing. This test is used for patient testing purposes. It should not be regarded as investigational or for research. Test performed at [facility], [address], [place] [address] Smitha Mesa MD, PhD - Patrol Captain Blood Venous blood specimen / Unknown 11/21/2024 6:37 AM EDT 11/21/2024 7:43 AM EDT us Kaleb Ko MD LAB BLOOD ORDERABLES Final Resul t [facility] [address] [place] [address] documented in this encounter Visit Diagnoses Diagnosis Encounter for therapeutic drug level monitoring documented in this encounter Care Teams Cementer Helper Relationship Specialty Start Date End Date Kaleb Ko MD [address] [place] [address] Dr [address] MARK Garcia PCP - General Internal Medicine 03/24/24 documented as of this encounter
--- OUTSIDE RECORDS SUMMARY | 2025-01-01 12:29 | XMS_ITS | Encounter Summary ---
Author Organization [facility] Address [address] [place] [address] Care Team Providers Care Cartography Professor Name Role Phone Kaleb Ko MD Primary Care Provider [phone] Encounter Details Date Type Department Care Team (Late st Contact Info) Description 06/14/2024 Lab Requisition [facility] - [facility] Lab 299 [facility] [place] [phone] Kaleb Ko MD [address] [place] [address] Dr [address] [place], [place] Other abnormal findings in urine Social [...] Aerococcus urinae(A) LIZ 06/16/2024 11:23 AM EDT [facility] Comment: Susceptibility testing not routinely [...] ORDER GEE Final Result Performing Organization Address [facility]/ZIP Co de Phone Number [facility] [address] [place] [address], [place] [phone] * Landa urine culture tube (06/14/2024 9:00 AM EDT) Pathologist [facility] Extra Tube Hold for add-ons. 06/14/2024 12:01 PM EDT [facility] Comment:Auto resulted. Urine Urine specimen obtained by clean catch procedure / Unknown 06/14/2024 9:00 AM EDT 06/14/2024 10:25 AM EDT us Kaleb Ko MD LAB URINE ORDERABLES Final Resul t Performing Organization Address [facility] Co de Phone Number [facility] [address] [place] [address], [place] [phone] * (ABNORMAL) Urinalysis with reflex microscopic and culture (06/14/2024 9:00 AM EDT) Specific [place] Urine 1.027 1.003 - 1.030 LAB URINALYSIS - AUTOMATED METHOD 06/14/2024 11:08 AM EDT [facility] pH, Urine 6.0 5.0 - 8.0 pH LAB URINALYSIS - AUTOMATED METHOD 06/14/2024 11:08 AM EDT [facility] Leukocytes, Urine Moderate(A) Negative LAB [...] - AUTOMATED METHOD 06/14/2024 11:08 AM EDT [facility] Urine Urine specimen obtained by clean catch procedure / Unknown 06/14/2024 9:00 AM EDT 06/14/2024 10:23 AM EDT us Kaleb Ko MD LAB URINE ORDERABLES Final Resul t [facility] [address] [place] [address], documented in this encounter Visit Diagnoses Diagnosis Other abnormal findings in urine documented in this encounter Care Teams Cartography Professor Relationship Specialty Start Date End Date Kaleb Ko MD [address] [place] [address] Dr [address] [place], [place] PCP - General Internal Medicine 03/24/24 documented as of this encounter
== END 2025-01-01 11:06 | disposition home or self-care (01) ==
LOC: HO.HUSH 10:25
PROVIDERS: Visit Provider Nurse Practitioner Family
DX: N20.0 Calculus of kidney (principal); N32.81 Overactive bladder
CPT/HCPCS: 99214; G2211

== ENCOUNTER → 2025-01-01 10:24 | Outpatient (BNVA) | payer MEDICAID, SELFPAY | PROVIDERS: Visit Provider Nurse Practitioner Family | DX: N20.0 Calculus of kidney (principal); N32.81 Overactive bladder | CPT/HCPCS: 51798; 99212 ==

== ENCOUNTER 2025-02-12 09:11 | Outpatient (REF) | payer MEDICAID, SELFPAY ==
--- NOTE | ~2025-02-12 | US_ITS ---
CLINICAL HISTORY: SUPERFICIAL MASS Limited soft tissue ultrasound of the epigastric region. Comparison: None provided Findings: The palpable lump corresponds to a hypoechoic avascular relatively well-defined structure. Impression: The palpable abnormality appears to correlate to a hypoechoic triangular shaped relatively well circumscribed structure. Unclear if this reflects cartilage arising from the tip of the xiphoid process. There is no vascularity or definite suspicious feature. Clinical follow-up versus imaging follow-up. This document has been electronically signed by: Vance Lee MD on 02/12/2025 12:37:20
== END 2025-02-12 09:12 | disposition home or self-care (01) ==
LOC: HO.US 09:11
PROVIDERS: PCP Hospitalist; Visit Provider Hospitalist
DX: R19.06 Epigastric swelling, mass or lump (principal)
CPT/HCPCS: 76705

== ENCOUNTER → 2025-02-12 09:15 | Outpatient (BNV) | payer MEDICAID, SELFPAY | PROVIDERS: PCP Hospitalist; Visit Provider Radiology Vascular & Interventional Radiology | DX: R19.06 Epigastric swelling, mass or lump (principal) | CPT/HCPCS: 76705 ==